=== PATIENT | female | born 1940 | race Hispanic/Latino ===

== ENCOUNTER 2016-12-24 10:31 | Inpatient (IN) | payer BC, MEDICARE ==
[2016-12-24] MEDS ORDERED: Sodium Chloride 0.9% 1,000 ML IV STA (10:49)
[2016-12-24] MEDS ORDERED: Sodium Chloride 0.9% 500 ML IV STA (11:01)
--- NOTE | 2016-12-24 11:06 | ED PDOC ---
Arrival/HPI - General Chief Complaint: High Blood Sugar Time Seen by Provider: 12/24/16 10:40 Historian: Patient, Family (Son, Daughter in Law) - History of Present Illness Narrative History of Present Illness (Text): 12/24/16 11:01 76 year old female with a past medical history that includes atrial fibrillation , gallstones, diabetes, and congestive heart failure presents to the emergency department from her PMD with elevated blood sugar. Patient reports generalized weakness and vomiting today. No loss of consciousness. Patient also reports lower extremity swelling for the past week and bloated sensation for the past three weeks. Denies abdominal pain, chest pain, shortness of breath, or other symptoms. PMD: Dr. Cisneros Time/Duration: < week Symptom Onset: Gradual Symptom Course: Unchanged Modifying Factors (Text): None Associated Symptoms (Text): None Past Medical History - Provider Review Nursing Documentation Reviewed: Yes - Infectious Disease Hx of Infectious Diseases: None - Reproductive Menopause: Yes - Cardiac Hx Atrial Fibrillation: Yes Hx Congestive Heart Failure: Yes Hx Hypertension: Yes - Neurological HX Cerebrovascular Accident: Yes - HEENT Hx HEENT Disorder: Yes (eyeglasses) - Endocrine/Metabolic Hx Diabetes Mellitus Type 2: Yes - Integumentary Other/Comment: multiple brown skin discolorations to lle +2 pitting edema tight skin, rle redness +2 pitting edema tight skin - Musculoskeletal/Rheumatological Hx Falls: No - Psychiatric Hx Psychophysiologic Disorder: No Hx Substance Use: No - Surgical History Hx Cardiac Catheterization: Yes Other/Comment: CARDIAC STENT - Anesthesia Hx Anesthesia: No Hx Anesthesia Reactions: No Hx Malignant Hyperthermia: No Family/Social History - Physician Review Nursing Documentation Reviewed: Yes Family/Social History: Unknown Family HX Smoking Status: Former Smoker Hx Alcohol Use: Yes Hx Substance Use: No Allergies/Home Meds Allergies/Adverse Reactions: Allergies Iodinated Contrast Media - Oral and [Iodinated Contrast Media - IV Dye] Allergy (Verified 12/24/16 10:37) ANAPHYLAXIS Home Medications: Home Meds Medication Instructions Recorded Confirmed Aspirin [Ecotrin] 81 mg PO DAILY 12/25/15 12/24/16 Metoprolol Succinate [Toprol XL] 100 mg PO DAILY 12/25/15 12/24/16 Simvastatin [Zocor] 40 mg PO DAILY 12/25/15 12/24/16 metFORMIN [glucOPHAGE] 500 mg PO BID 12/25/15 12/24/16 Coumadin 2.5 mg PO 12/28/15 11/30/16 K-Dur 20 mEq ER Tab 20 meq PO BID 12/28/15 11/30/16 Lasix 40 mg PO BID 12/28/15 12/24/16 Aspirin [Ecotrin] 81 mg PO DAILY 12/24/16 12/24/16 Spironolactone [Aldactone] 25 mg PO BID 12/24/16 12/24/16 Review of Systems - Review of Systems Constitutional: Other (Generalized weakness) Eyes: absent: Vision Changes ENT: absent: Hearing Changes Respiratory: absent: SOB, Cough Cardiovascular: Edema (lower extremity edema). absent: Chest Pain, Palpitations Gastrointestinal: Vomiting. absent: Abdominal Pain Genitourinary Female: absent: Dysuria, Frequency Musculoskeletal: absent: Back Pain Skin: absent: Rash Neurological: absent: Headache, Dizziness Endocrine: absent: Diaphoresis Hemo/Lymphatic: absent: Easy Bleeding Psychiatric: absent: Depression Physical Exam Vital Signs Reviewed: Yes Vital Signs Temp Pulse Resp BP Pulse Ox 12/24/16 12:06 120 H 16 119/79 94 L 12/24/16 10:32 97.6 F 80 16 118/85 97 Temperature: Afebrile Blood Pressure: Normal Pulse: Regular Respiratory Rate: Normal Appearance: Positive for: Well-Appearing, Non-Toxic, Comfortable Pain Distress: None Mental Status: Positive for: Alert and Oriented X 3 Finger Stick Blood Glucose: 430 - Systems Exam Head: Present: Atraumatic, Normocephalic Pupils: Present: PERRL Extroacular Muscles: Present: EOMI Conjunctiva: Present: Normal Mouth: Present: Moist Mucous Membranes Neck: Present: Normal Range of Motion Respiratory/Chest: Present: Clear to Auscultation, Good Air Exchange. No: Respiratory Distress, Accessory Muscle Use Cardiovascular: Present: Normal S1, S2, Irregular Rhythm (irregularly irregular) . No: Murmurs Abdomen: Present: Normal Bowel Sounds. No: Tenderness, Distention, Peritoneal Signs Back: Present: Normal Inspection Upper Extremity: Present: Normal Inspection. No: Cyanosis, Edema Lower Extremity: Present: Edema (Bilateral) Neurological: Present: GCS=15, CN II-XII Intact, Speech Normal Skin: Present: Warm, Dry, Normal Color. No: Rashes Psychiatric: Present: Alert, Oriented x 3, Normal Insight, Normal Concentration Medical Decision Making ED Course and Treatment: Impression: 76 year old female with a past medical history that includes atrial fibrillation, gallstones, diabetes, and congestive heart failure presents to the emergency department from her PMD with elevated blood sugar. No chest pain. Differential Diagnosis include but are not limited to: Plan: -- Zofran -- IV fluids -- Labs -- Reassess and disposition Prior Visits: Notes and results from previous visits were reviewed. Patient last seen in ED on 11/30/16 for nausea/vomiting and admitted for rapid atrial fibrillation. Progress Notes: 12/24/16 11:08 EKG shows atrial fibrillation at [address] elevations. Interpreted by me. 12/24/16 12:48 Labs show hyperglycemia but no gap and ph:7.3. Slow hydration ordered. Patient has clinical signs of overload as well as elevated bnp, and signs of heart failure/?R sided and therefore needs close fluid management for treatment of hyperglycemia. Will also need GI consult for further evaluation of elevated lfts, vomiting and worsening hyperglycemia. Spoke to PMD Dr. Cisneros who recommended admission under Dr. Vizcaino - Lab Interpretations Lab Results: 12/24/16 10:56 12/24/16 10:56 Lab Results 12/24/16 10:56: WBC 7.6 D, RBC 4.92, Hgb 13.5, Hct 41.3, MCV 83.9, MCH 27.4, MCHC 32.7, RDW 15.8 H, Plt Count 221, MPV 10.2, Gran % 82.5 H, Lymph % (Auto) 7.4 L, [place] % (Auto) 7.8 H, Eos % (Auto) 2.0, Baso % (Auto) 0.3, Gran # 6.26, Lymph # 0.6 L, [place] # 0.6, Eos # 0.2, Baso # 0.02, PT 14.8 H, INR 1.37 H, APTT 28.7, pO2 27 L, VBG pH 7.31 L, VBG pCO2 59.0, VBG HCO3 29.7 H, VBG Total CO2 31.5 H, VBG O2 Sat (Calc) 44.8, VBG Base Excess 2.0, VBG Potassium 4.2, Glucose 468 H*, Lactate 2.8 H, FiO2 21.0, Sodium 133.0, Potassium 4.3, Chloride 95.0 L, Carbon Dioxide 31, Anion Gap 13, BUN 27 H, Creatinine 1.4, Est GFR ( Amer ) 44, Est GFR (Non-Af Amer) 37, Random Glucose 495 H* D, Calcium 9.0, Phosphorus 3.5, Magnesium 1.9, Total Bilirubin 1.7 H, AST 34, ALT 43, Alkaline Phosphatase 186 H, Total Creatine Kinase 39, Troponin I 0.04, NT-Pro-B Natriuret Pep 7070 H, Total Protein 7.8, Albumin 3.9, Globulin 3.9, Albumin/ Globulin Ratio 1.0 L, Lipase 152, Venous Blood Potassium 4.2 - RAD Interpretation Radiology Orders: 12/24/16 10:54 CHEST PORTABLE [RAD] Stat - EKG Interpretation Interpreted by ED Physician: Yes Type: 12 lead EKG - Medication Orders Current Medication Orders: Discontinued Medications Sodium Chloride (Sodium Chloride 0.9%) 1,000 mls @ 999 mls/hr IV .Q1H1M STA Stop: 12/24/16 11:49 Sodium Chloride (Sodium Chloride 0.9%) 500 mls @ 999 mls/hr IV .Q31M STA Stop: 12/24/16 11:31 Last Admin: 12/24/16 11:08 Dose: 999 MLS/HR eMAR Start Stop Document 12/24/16 11:08 OCS (Rec: 12/24/16 11:09 OCS [id number]) Intravenous Solution Start Date 12/24/16 Start Time 11:08 End Date 12/24/16 End time 11:40 Total Infusion Time 32 Ondansetron HCl (Zofran Inj) 4 mg IVP STAT STA Stop: 12/24/16 11:09 Last Admin: 12/24/16 11:19 Dose: 4 MG IVP Administration Document 12/24/16 11:19 OCS (Rec: 12/24/16 11:20 OCS [id number]) Charges for Administration # of IVP Administrations 1 - Scribe Statement The provider has reviewed the documentation as recorded by the Angel Marr Provider Scribe Attestation: All medical record entries made by the Allisonibmathew were at my direction and personally dictated by me. I have reviewed the chart and agree that the record accurately reflects my personal performance of the history, physical exam, medical decision making, and the department course for this patient. I have also personally directed, reviewed, and agree with the discharge instructions and disposition. Disposition/Present on Arrival - Present on Arrival Any Indicators Present on Arrival: No History of DVT/PE: No History of Uncontrolled Diabetes: No Urinary Catheter: No History of Decub. Ulcer: No History Surgical Site Infection Following: None - Disposition Have Diagnosis and Disposition been Completed?: Yes Diagnosis: Congestive heart failure, Rapid atrial fibrillation, Hyperglycemia Disposition: HOSPITALIZED Disposition Time: 12:17 Patient Plan: Admission Patient Problems: Current Active Problems Problem Status Diagnosed Congestive heart failure Acute Hyperglycemia Acute Rapid atrial fibrillation Acute Condition: FAIR
[2016-12-24 11:14] LABS: ADD MANUAL DIFF? NO
[2016-12-24 11:17] LABS: BASO # 0.02 K/mm3 (0.0-2.0); BASO % 0.3 % (0.0-3.0); EOS # 0.2 (0.0-0.7); GRAN # 6.26 (1.4-6.5); GRAN % 82.5 % (50.0-68.0); HEMATOCRIT 41.3 % (36.0-48.0); LYMPH # 0.6 (1.2-3.4); LYMPH % 7.4 % (22.0-35.0); MEAN CELL VOLUME 83.9 fL (80.0-105.0); MEAN CORPUSCULAR HEMOGLOBIN 27.4 pg (25.0-35.0); MEAN CORPUSCULAR HGB CONC 32.7 g/dl (31.0-37.0); MEAN PLATELET VOLUME 10.2 fl (7.0-11.0); MONO # 0.6 (0.1-0.6); MONO % 7.8 % (1.0-6.0); PLATELET COUNT 221 10^3/uL (120.0-450.0); RED CELL DISTRIBUTION WIDTH 15.8 % (11.5-14.5); WHITE BLOOD COUNT 7.6 10^3/ul (4.5-11.0)
[2016-12-24 11:18] LABS: VENOUS BLOOD PH 7.31 (7.32-7.43)
[2016-12-24 11:27] LABS: INR 1.37 (0.93-1.08); PARTIAL THROMBOPLASTIN TIME 28.7 Seconds (23.7-30.8)
[2016-12-24 11:36] LABS: BILIRUBIN,TOTAL 1.7 mg/dL (0.2-1.3); MAGNESIUM 1.9 mg/dL (1.7-2.2); PHOSPHOROUS 3.5 mg/dL (2.5-4.5); POTASSIUM 4.3 mmol/L (3.6-5.0); TOTAL PROTEIN 7.8 g/dL (5.8-8.3)
[2016-12-24 11:48] LABS: TROPONIN I 0.04 ng/mL
[2016-12-24] MEDS ORDERED: Metoprolol Succinate 100 mg XL Tab PO STA (13:00)
--- NOTE | 2016-12-24 14:39 | RAD ---
HISTORY: hyperglycemia COMPARISON: Comparison is made to 11/30/2016 FINDINGS: LUNGS: Worsening gait left lower chest opacity likely representing combination of left pleural effusion and left lower lobe consolidation. Otherwise no significant interval change in the lungs. PLEURA: Suspicious for small to moderate left pleural effusion. Blunting of the right costophrenic angle is also noted. CARDIOVASCULAR: Likely normal in size. OSSEOUS STRUCTURES: Suspicious for osteopenia. VISUALIZED UPPER ABDOMEN: Normal. OTHER FINDINGS: None. IMPRESSION: Worsening opacity at the left lower chest likely represent a combination of left pleural effusion and left lower lobe consolidation/atelectasis. Otherwise no significant interval change.
[2016-12-24] MEDS: Metoprolol Succinate 100 mg XL Tab PO SCH (14:53)
--- NOTE | 2016-12-24 16:09 | CON ---
DATE: 12/24/2016 Seen and examined in the Emergency Room. Her family was at the bedside. The chart was reviewed. REQUEST FOR CONSULT: For vomiting and hyperglycemia. HISTORY OF PRESENT ILLNESS: This is a 76-year-old female with a history of atrial fibrillation, silverio nary artery disease with stent, diabetes mellitus type 2, who was recently discharged from the [facility] on 12/06/2016. She came to the hospital with rapid AFib and was followed by our service for eleva ga LFTs. It appeared that the patient may have had cholecystitis. She received IV antibiotics with improvement of her symptoms. She did have an MRI done. She did have an MRCP done which was negativ e for a CBD stone. There was no common bile duct or intrahepatic biliary ductal dilation, but did sh ow gallstones and mild gallbladder thickening and pericholecystic fluid. She was followed by surgery and did not require any surgical intervention. Also on MRCP, it was reported that there was finding suspicious for partial splenic infarction. She was seen by hematology; it was thought that the infa rcts were probably related to the rapid AFib after her medications were not tolerated due to nausea a nd vomiting. She also underwent a HIDA scan during that admission and it was a normal hepatobiliary scan. The cystic duct was patient. The patient was clinically improving and discharged home. The abhi baptiste returns to the Emergency Room from her PMD's office with elevated blood sugar and the patient was complaining of generalized weakness and vomiting. Also complains of lower extremity swelling for the past week. The patient does not complain of any shortness of breath, abdominal pain, chest pain . Denies any diarrhea or constipation. No reports of any overt GI bleed. PAST MEDICAL HISTORY: Atrial fibrillation, on Coumadin; coronary artery disease, status post stent; diabetes mellitus, type 2. The patient has history of colon polyps. She had a colonoscopy at [facility] in 11/2009. The polyp was an adenomatous polyp, negative for high-grade dysplasia. She has not h ad any recent colonoscopy. She also has history of pulmonary hypertension, cholelithiasis, CHF. PAST SURGICAL HISTORY: Vaginosis that was removed many years ago after giving , cardiac cathete rization, and last colonoscopy in 2009 at [facility] [place]. FAMILY HISTORY: Mother had heart disease. SOCIAL HISTORY: Denies smoking, ETOH, or substance abuse. ALLERGIES: IODINATED CONTRAST MEDIA, ORAL AND DYE. MEDICATIONS: Reviewed as per MAR. REVIEW OF SYSTEMS: Systems were reviewed with positive findings, see HPI. ASSESSMENT: This is a 76-year-old female with a past medical history of atrial fibrillation, coronar y artery disease with stents, pulmonary hypertension, cholelithiasis, who came to the Emergency Room with complaints of vomiting and hyperglycemia. The patient has history of diabetes mellitus type 2. The patient has an elevated BNP as well as lower extremity swelling, likely having congestive heart failure. She is noted to have an elevated total bilirubin and alkaline phosphatase. Rule out any ga llbladder pathology. PLAN: Continue liquid diet. We will review her previous radiology report; she had an MRCP. She is on aspirin and on Aldactone. We will continue to follow closely. Discussed with her family at the [facility]. Thank you for this consult and for allowing us to participate in your patient's care. Will make furt her recommendations based upon patient's clinical course. The patient was seen and discussed with Dr Tamie Ortega. Jemma TAPIA cc: [id number] TT: 12/24/2016 16:08:22 Confirmation # [id number] Dictation # [id number] eladio
[2016-12-24 18:18] VITALS: BMI 27.1
[2016-12-25 07:11] LABS: HEMATOCRIT 38.4 % (36.0-48.0); MEAN CELL VOLUME 83.7 fL (80.0-105.0); MEAN CORPUSCULAR HEMOGLOBIN 26.8 pg (25.0-35.0); MEAN PLATELET VOLUME 9.6 fl (7.0-11.0); RED CELL DISTRIBUTION WIDTH 15.6 % (11.5-14.5); WHITE BLOOD COUNT 5.9 10^3/ul (4.5-11.0)
[2016-12-25 07:16] LABS: BILIRUBIN,TOTAL 1.4 mg/dL (0.2-1.3); CALCIUM 8.3 mg/dL (8.4-10.5); POTASSIUM 4.5 mmol/L (3.6-5.0); TOTAL PROTEIN 6.6 g/dL (5.8-8.3)
--- NOTE | 2016-12-25 08:39 | CON ---
DATE: 12/24/2016 This patient was seen and evaluated earlier today. Discussed with the ER attending. This 76-year-ol d patient with a history of atrial fibrillation, coronary artery disease, diabetes mellitus, recently in the hospital, was admitted again. This patient was admitted with shortness of breath. The patie nt was found to have elevated liver enzymes. GI consultation was requested to evaluate. The patient denies any abdominal pain. PHYSICAL EXAMINATION: Abdomen is soft. There is no tenderness. Bilateral leg swelling present. Th e likely cause for the elevated liver enzymes could be congestion. But, we need to consider chronic liver disease. The patient did have an MRCP done during her last admission and it was negative for CBD stone. The p oliva's MRCP was negative. At the present time, the plan is to follow up the LFTs and optimize her cardiac status, ____ consider ing further endoscopic evaluation. The patient also has a history of multiple colonic polyps. She w ould also benefit from elective colonoscopic evaluation. We will continue to closely follow up her c are and suggest further management based on the clinical course. Marleen Ortega MD cc: [id number] TT: 12/25/2016 08:39:14 Confirmation # [id number] Dictation # [id number] mn
[2016-12-25] MEDS: Metoprolol Succinate 100 mg XL Tab PO SCH (09:51)
--- NOTE | 2016-12-25 09:58 | CARD ---
APPROVED REPORT EKG Measurement Heart [id number] <Conclusion> Atrial fibrillation with rapid ventricular respons PRWP STTW changes Small inferior q waves No change except faster rate.
--- NOTE | 2016-12-25 11:07 | CON ---
DATE: 12/25/2016 REASON FOR CONSULTATION: Left pleural effusion. REFERRING PHYSICIAN: Dr. Ben James The patient is a 76-year-old female with past medical history significant for atrial fibrillation, congestive heart failure, coronary artery disease, valvular heart disease, diabetes mellitus, chronic left pleural effusion (seen on multiple previous chest x-rays), who presents with main complaints of increasing shortness of breath at rest and dyspnea on exertion for the past 3 days. There is no history of cough or sputum production. There is no history of chest pain, coughing up of blood or chest pain -- made worse with deep respirations. There is no history of temperatures, chills or infectious exposure. There is no history of night sweats, weight loss or appetite change prior to the above events. No history of leg or calf pains. The patient does state that her legs have been swollen over the past week. No history of syncope or diaphoresis. No history of recent travel or trauma. REVIEW OF SYSTEMS: The patient does state to an episode of nausea and vomiting yesterday. No abdominal pain. No diarrhea. No acute urinary symptoms. No new neurologic or musculoskeletal complaints. Rest of the review of systems is negative. ALLERGIES: IV DYE. SOCIAL HISTORY: Negative for tobacco, negative for alcohol. FAMILY HISTORY: No inheritable diseases. HOME MEDICATIONS: Include Lasix, Aldactone, Ecotrin, Toprol, Glucophage, Zocor , Coumadin. PHYSICAL EXAMINATION: GENERAL: The patient appears comfortable at rest. She is not short of breath. VITAL SIGNS: Temperature is 97.2, pulse 71, respirations 19, blood pressure 132 /72. Oxygen saturation on room air is 95%. HEENT: Normocephalic, atraumatic. No JVD. CARDIOVASCULAR: Systolic ejection murmur at the lower left sternal border. Positive S3 gallop. LUNGS: Decreased breath sounds with crackles at both bases. No rhonchi. No wheezing. EXTREMITIES: Positive for edema. No cyanosis, no clubbing. Calves are nontender to palpation. GASTROINTESTINAL: Abdomen is soft, nontender, nondistended. Bowel sounds are positive. SKIN: No acute rash. NEUROLOGIC: Limited at the present time. PERTINENT LABORATORY DATA: Chest x-ray was done and reviewed. There is a small left pleural effusion noted -- possibly slightly increased from the previous films. There is also minimal linear atelectasis at the left base. Complete metabolic profile: Glucose 189, calcium 8.3, bilirubin 1.4, alkaline phosphatase 135. Rest of the metabolic profile is within normal limits. Initial B-type natriuretic peptide 7070. INR 1.37. CBC: White count 5.9, hemoglobin 12.3, hematocrit 38.4, platelets of 197. IMPRESSION: 1. Recurrent congestive heart failure. 2. Chronic atrial fibrillation. 3. Chronic small left pleural effusion. 4. Minimal atelectasis -- left base. 5. Coronary artery disease. 6. Valvular heart disease. PLAN: The patient presents to [facility] with increasing shortness of breath at rest and dyspnea on exertion for the past 3 days. The patient also states to bilateral leg swelling for the past week. She was thus admitted for additional evaluation. I did review the chest x-ray as above. There is a chronic small left pleural effusion noted -- possibly slightly increased from the previous films. This left pleural effusion has been noted on the previous abdominal/pelvic CAT scans, as well as multiple previous chest x-rays. On physical exam, there is no significant bronchospasm noted. In addition, there is no significant alveolar-arterial gradient. Oxygen saturation on room air is 95%. I would continue with the treatment for congestive heart failure. Cardiology evaluation with Dr. Kong has been ordered. I would also check a repeat chest x-ray -- in a few days -- for comparison. As above, this morning, the patient does appear quite comfortable at rest. She states she is much feeling better this morning. Additional pulmonary intervention will be based on the above results, as well as the clinical status of the patient. I will discuss the above with Dr. James. Thank you very much for this pulmonary consultation. Dev Deal MD cc: [id number] TT: 12/25/2016 11:06:36 Confirmation # [id number] Dictation # [id number] MTDD
--- NOTE | 2016-12-25 11:23 | HP ---
CHIEF COMPLAINT AND HISTORY OF PRESENT ILLNESS: This is a 76-year-old female who is coming into the hospital with high sugars. The patient has a past medical history of atrial fibrillation, gallstones , diabetes type 2, CHF. The patient had gone to see her primary care doctor. She was complaining of weakness. She had vomiting. She denies any abdominal pain, no back pain. She said she had been bl oated for the past few weeks. She has no fevers or chills, no nausea, no vomiting. She was recently discharged from the hospital about 1 month ago after she had atrial fibrillation with a rapid rate. The patient says she feels well this morning. She has no other complaints. She had elevated LFTs d uring the previous hospitalization. She did have an MRCP that was negative for common bile duct ston es. She is being followed by GI. She also had a HIDA scan that showed a normal hepatobiliary scan. REVIEW OF SYSTEMS: All other review of symptoms are within normal limits except what is mentioned. ALLERGIES: IODINATED CONTRAST MEDIA. PAST MEDICAL HISTORY: 1. Atrial fibrillation. 2. Diabetes type 2. 3. Coronary artery disease. 4. Dyslipidemia. 5. Pulmonary hypertension. 6. Moderate tricuspid regurgitation. 7. Severe pulmonary hypertension. 8. Transaminitis. FAMILY HISTORY: The mother had coronary disease and high blood pressure. SOCIAL HISTORY: She denies smoking, drinking. She lives with her son. HOME MEDICATIONS: Aspirin, Lasix, Toprol, Zocor, Glucophage, Coumadin and Lasix. PHYSICAL EXAMINATION: VITAL SIGNS: Temperature is 97.2, pulse is 71, blood pressure is 132/72, respirations 19, O2 saturat ion is 95%, height is 5 feet 3 inches, weight is 153 pounds, BMI is 27.2. GENERAL: The patient lying in bed, flat, and in no apparent distress. HEAD AND NECK EXAM: Atraumatic, normocephalic. Conjunctivae are pink. Throat clear and mouth with moist mucosa. Oropharynx benign. EYES: Extraocular movements are intact. PERRLA. NECK: Supple. No JVD, thyromegaly, or adenopathy. No bruits. HEART: S1 and S2 regular rate and rhythm. No murmurs, rubs, or gallops. LUNGS: Clear to auscultation bilaterally. No wheezing rales or rhonchi appreciated. No retraction s on exam. ABDOMEN: Soft, nontender, nondistended. Bowel sounds are positive in all quadrants. No rebound. No hepatosplenomegaly. EXTREMITIES: No cyanosis, clubbing, or edema. NEUROLOGIC: No facial asymmetry, tongue is midline, no uvula deviation. Power is 5/5 in upper extr emity and 5/5 in lower extremity. Sensation is normal in upper extremity and lower extremity. PSYCHIATRIC: Awake, alert, oriented x 3. No anxiety or depression symptoms. Good insight. Claribel l affect. GENITOURINARY: No CVA tenderness VASCULAR: 2+ pulses in carotid and pedal pulses. SKIN: No erythema or abnormal nodules noted. SPINE: Normal curvature. LYMPHADENOPATHY: No anterior cervical or posterior cervical adenopathy. No inguinal adenopathy. LABORATORIES: White count of 7.6, hemoglobin 13.5, platelet count is 221. INR is 1.37. She is subt herapeutic. ABG shows a pH of 7.31, pCO2 is 59, PaO2 is 27. Chemistry shows sodium 132. The patient's creatinine is 1.4. Glucose is 495, repeat is 189. She kuo s an albumin of 3.9. AST, ALT is 34 and 39, alkaline phosphatase of 186. Chest x-ray done shows worsening opacity of the left lower lobe, likely representing a combination of pleural effusion and left lower lobe consolidation. EKG shows atrial fibrillation with a rate of 147, QTc is 388. ASSESSMENT: 1. Vomiting. 2. Diabetes type 2, uncontrolled. 3. Hypoxia. 4. Pneumonia, left lower lobe. 5. Pulmonary hypertension. 6. Diabetes type 2. 7. Atrial fibrillation with rapid rate. 8. Coronary artery disease. PLAN: The patient is going to be admitted to the hospital. The patient is on her aspirin. She is g oing to continue with Aldactone. She is on metoprolol. She was given IV fluids and Zofran. She is on a liquid diet. I will get Dr. Ortega to evaluate the patient. The patient is going to be place d on oxygen. I will get pulmonary to evaluate the patient. She will need to continue her Coumadin a s she is subtherapeutic. She is going to need fingersticks with sliding scale. Her fingerstick this morning is 177. We will continue to follow closely. Repeat her blood work tomorrow. She will need antibiotics. She has blood cultures done. She will also need ID evaluation. Ben James MD cc: [id number] TT: 12/25/2016 11:23:13 en
[2016-12-25] MEDS: Meropenem 1 GM in Sodium Chloride 0.9% 100 ML IVPB SCH ×2 (11:48→22:54)
[2016-12-25] MEDS: Insulin Reg-MEDIUM-Coverage SC SCH ×3 (12:23→22:01)
--- NOTE | 2016-12-25 14:33 | CP.PCM.CON ---
History of Present Illness - History of Present Illness History of Present Illness: 76 year old female with PMH of CAD S/P PCI, atrial fibrillation on anticaogulation, severe pulmonary HTN, DM, chronic CHF came in to [facility] complaining of nausea associated with vomiting and generalized weakness which started about 2-3 days. She has also been having dry cough and mild shortness of breath at rest. She denies chest pain, no chest palpitations, no headache or dizziness, no fever or chills, no abdominal pain, no flank pain, no sore throat, no dysphagia, no rhinorrhea, no diarrhea, has occasional burning sensation on urination. In the ED, she was noted to have hyperglycemia, and CXR showed questionable pneumonia on the left lower lobe. Infectious Diseases consult is requested to further evaluate and manage. Review of Systems - Review of Systems All systems: reviewed and no additional remarkable complaints except (as per HPI ) Past Patient History - Infectious Disease Hx of Infectious Diseases: None - Past Social History Smoking Status: Former Smoker - CARDIAC Hx Cardiac Disorders: Yes ([place]) Hx Cardia Arrhythmia: Yes (afib) Hx Congestive Heart Failure: Yes Hx Hypercholesterolemia: Yes Hx Hypertension: Yes - NEUROLOGICAL HX Cerebrovascular Accident: Yes - HEENT Hx HEENT Problems: Yes (eyeglasses) - ENDOCRINE/METABOLIC Hx Diabetes Mellitus Type 2: Yes - INTEGUMENTARY Other/Comment: multiple brown skin discolorations to lle +2 pitting edema tight skin, rle redness +2 pitting edema tight skin - MUSCULOSKELETAL/RHEUMATOLOGICAL Hx Falls: No - PSYCHIATRIC Hx Substance Use: No - SURGICAL HISTORY Hx Cardiac Catheterization: Yes Hx Coronary Stent: Yes Other/Comment: CARDIAC STENT - ANESTHESIA Hx Anesthesia: No Hx Anesthesia Reactions: No Hx Malignant Hyperthermia: No Meds Allergies/Adverse Reactions: Allergies Allergy/AdvReac Type Severity Reaction Status Date / Time Iodinated Contrast Media - Allergy ANAPHYLAXIS Verified 12/24/16 10:37 Oral and [Iodinated Contrast Media - IV Dye] - Medications Medications: Current Medications Aspirin (Ecotrin) 81 mg PO DAILY [facility] Insulin Human Regular (Humulin R Med) 0 units SC ACHS [facility] PRN Reason: Protocol Metoprolol Succinate (Toprol Xl) 100 mg PO DAILY [facility] Last Admin: 12/24/16 14:53 Dose: Not Given Spironolactone (Aldactone) 25 mg PO BID [facility] Last Admin: 12/24/16 18:26 Dose: 25 mg Warfarin Sodium (Coumadin) 2.5 mg PO 1800 [facility] Physical Exam - Constitutional Appears: Non-toxic, No Acute Distress - Head Exam Head Exam: NORMAL INSPECTION - ENT Exam ENT Exam: Mucous Membranes Moist - Neck Exam Neck exam: Negative for: Lymphadenopathy, Meningismus - Respiratory Exam Respiratory Exam: Decreased Breath Sounds - Cardiovascular Exam Cardiovascular Exam: +S1, +S2 - GI/Abdominal Exam GI & Abdominal Exam: Soft. absent: Tenderness Results - Vital Signs Recent Vital Signs: Last Vital Signs Temp 97.2 F L 12/24/16 18:02 Pulse 71 12/25/16 06:00 Resp 19 12/25/16 06:00 BP 132/72 12/25/16 06:00 Pulse Ox 95 12/25/16 06:00 - Labs Result Diagrams: 12/25/16 06:30 12/25/16 06:30 Labs: Laboratory Results - last 24 hr 12/24/16 12/25/16 12/25/16 21:19 06:30 07:36 WBC 5.9 D RBC 4.59 Hgb 12.3 Hct 38.4 MCV 83.7 MCH 26.8 MCHC 32.0 RDW 15.6 H Plt Count 197 MPV 9.6 Sodium 136 Potassium 4.5 Chloride 96 Carbon Dioxide 33 Anion Gap 12 BUN 21 Creatinine 1.2 Est GFR ( Amer) 53 Est GFR (Non-Af Amer) 44 POC Glucose (mg/dL) 347 H 177 H Random Glucose 189 H Calcium 8.3 L Total Bilirubin 1.4 H AST 28 ALT 39 Alkaline Phosphatase 135 H Total Protein 6.6 Albumin 3.2 Globulin 3.4 Albumin/Globulin Ratio 1.0 L Assessment & Plan - Assessment and Plan (Free Text) Plan: Assessment Left lower lobe consolidation, consider secondary to CHF exacerbation R/O left lower lobe healthcare-associated pneumonia Nausea with elevated Alk phos and bilirubin, R/O biliary tract disease history of cholecystitis CAD S/P PCI with chronic CHF atrial fibrillation on anticoagulation severe pulmonary HTN DM Plan started patient on Doxycycline and Meropenem pending blood, sputum cx, PCT; reviewed CXR - will discuss with Dr. Deal Will also check UA and urine cx Follow up Ultrasound of the abdomen Will monitor clinically
--- NOTE | 2016-12-25 19:01 | US ---
HISTORY: rule out cholecystitis COMPARISON: 12/01/2016 TECHNIQUE: Sonographic evaluation of the abdomen. FINDINGS: LIVER: Measures 14.6 cm. Diffusely increased echogenicity of the liver parenchyma. Consistent with mild fatty infiltration. No mass. No biliary ductal dilatation. Hepatopetal portal venous flow demonstrated. GALLBLADDER: Cholelithiasis. No mural thickening. Negative sonographic Willett's sign. COMMON BILE DUCT: Measures 5 mm. No stones. No dilatation. PANCREAS: Unremarkable as visualized. No mass. No ductal dilatation. RIGHT KIDNEY: Measures 9.4cm. Normal echogenicity. No calculus, mass, or hydronephrosis. LEFT KIDNEY: Measures 10.5cm. Normal echogenicity. No calculus, mass, or hydronephrosis. SPLEEN: Normal in size and contour. No mass. AORTA: No aneurysmal dilatation. IVC: Unremarkable. OTHER FINDINGS: Bilateral pleural effusion IMPRESSION: No evidence of cholecystitis. Cholelithiasis is noted. Mild fatty infiltration of the liver. Bilateral pleural effusion.
[2016-12-25 21:56] LABS: PH,URINE 6.5 (4.7-8.0); URINE BILIRUBIN NEGATIVE (NEGATIVE); URINE BLOOD NEGATIVE (NEGATIVE); URINE GLUCOSE (UA) 250 mg/dL (NEGATIVE); URINE KETONE NEGATIVE (NEGATIVE); URINE LEUKOCYTE ESTERASE NEGATIVE Leu/uL (NEGATIVE); URINE PROTEIN TRACE mg/dL (<30 mg/dL)
[2016-12-25 21:58] LABS: URINE APPEARANCE CLEAR (CLEAR); URINE COLOR YELLOW (YELLOW)
[2016-12-25 22:00] LABS: URINE RBC 0 - 2 /hpf (0-2); URINE WBC 0 - 2 /hpf (0-6)
--- NOTE | 2016-12-26 00:19 | CP.PCM.PN ---
Subjective - Date & Time of Evaluation Date of Evaluation: 12/25/16 Time of Evaluation: 11:00 - Subjective Subjective: Seen and examined at bedside earlier today. No N/V or abdominal pain. Generalized weakness and SOB are improving. NO acute overnight events. Objective - Vital Signs/Intake and Output Vital Signs (last 24 hours): Temp Pulse Resp BP Pulse Ox 97.6 F 102 H 20 135/85 95 12/25/16 12:00 12/25/16 12:00 12/25/16 12:00 12/25/16 12:00 12/25/16 06:00 Intake and Output: 12/25/16 12/25/16 06:59 18:59 Intake Total 720 Balance 720 - Medications Medications: Current Medications Aspirin (Ecotrin) 81 mg PO DAILY [facility] Last Admin: 12/25/16 09:51 Dose: 81 mg Doxycycline Hyclate 100 mg/ (Sodium Chloride) 100 mls @ 100 mls/hr IVPB Q12 [facility] PRN Reason: Protocol Last Admin: 12/25/16 10:44 Dose: 100 mls/hr Meropenem 1 gm/ Sodium (Chloride) 100 mls @ 100 mls/hr IVPB Q12 [facility] PRN Reason: Protocol Stop: 01/01/17 10:01 Last Admin: 12/25/16 11:48 Dose: 100 mls/hr Insulin Human Regular (Humulin R Med) 0 units SC ACHS [facility] PRN Reason: Protocol Last Admin: 12/25/16 12:23 Dose: 5 units Metoprolol Succinate (Toprol Xl) 100 mg PO DAILY [facility] Last Admin: 12/25/16 09:51 Dose: 100 mg Spironolactone (Aldactone) 25 mg PO BID [facility] Last Admin: 12/25/16 09:51 Dose: 25 mg Warfarin Sodium (Coumadin) 2.5 mg PO 1800 [facility] - Labs Labs: 12/25/16 06:30 12/25/16 06:30 PT 14.8 Seconds (9.9-11.8) H 12/24/16 10:56 INR 1.37 (0.93-1.08) H 12/24/16 10:56 APTT 28.7 Seconds (23.7-30.8) 12/24/16 10:56 - Constitutional Appears: No Acute Distress - Eye Exam Eye Exam: PERRL. absent: Scleral icterus - ENT Exam ENT Exam: Mucous Membranes Moist - Neck Exam Neck Exam: Normal Inspection - Respiratory Exam Respiratory Exam: Decreased Breath Sounds, NORMAL BREATHING PATTERN. absent: Rales, Wheezes, Respiratory Distress - Cardiovascular Exam Cardiovascular Exam: +S1, +S2 - GI/Abdominal Exam GI & Abdominal Exam: Soft, Normal Bowel Sounds. absent: Distended, Guarding, Tenderness, Rebound - Extremities Exam Extremities Exam: Pedal Edema. absent: Calf Tenderness - Neurological Exam Neurological Exam: Alert, Awake, Oriented x3 - Skin Skin Exam: Dry, Warm Assessment and Plan - Assessment and Plan (Free Text) Assessment: ASSESSMENT: Atrial Fibrillation S/P N/V CAD, s/p stents Pneumonia Pulmonary Hypertension Cholelithiasis DM type II CHF Elevated TB/alkaline phosphatase, LFT improving, may be secondary to congestion , gallstone but prior workup is negative. H/O colon polyps PLAN: Continue liquid diet on aspirin on Aldactone on IV antibiotics as per ID monitor LFT as per cardiology would benefit from elective colonoscopy when optimal,last coon was 2009. Seen and discussed with Dr. Ortega.
[2016-12-26] MEDS ORDERED: Metoprolol 1 mg/ml Inj IVP ONE (02:17)
--- NOTE | 2016-12-26 03:21 | PN ---
DATE: 12/25/2016 ADDENDUM: This is an addendum to the GI progress report dictated by Jemma Ricks NP. On examination, abdomen is soft. There is no tenderness present. The review of the lab showed improving LFTs. The likely cause for elevated LFTs should include hepatic congestion. LFTs showing improving trend. previous hepatobilliary workup reviewed again. We will continue to closely followup. Thank you very much for allowing us to participate in the care of the patient. Marleen Ortega MD cc: [id number] TT: 12/26/2016 03:20:48 Confirmation # [id number] Dictation # [id number] [facility]
[2016-12-26 08:04] LABS: HEMATOCRIT 40.9 % (36.0-48.0); MEAN CELL VOLUME 83.8 fL (80.0-105.0); MEAN CORPUSCULAR HEMOGLOBIN 27.3 pg (25.0-35.0); MEAN CORPUSCULAR HGB CONC 32.5 g/dl (31.0-37.0); MEAN PLATELET VOLUME 9.7 fl (7.0-11.0); RED CELL DISTRIBUTION WIDTH 15.8 % (11.5-14.5); WHITE BLOOD COUNT 6.5 10^3/ul (4.5-11.0)
[2016-12-26 08:15] LABS: INR 1.59 (0.93-1.08)
[2016-12-26 08:20] LABS: ALB/GLOB RATIO 0.9 (1.1-1.8); BILIRUBIN,TOTAL 1.7 mg/dL (0.2-1.3); CALCIUM 8.9 mg/dL (8.4-10.5); POTASSIUM 4.8 mmol/L (3.6-5.0); TOTAL PROTEIN 7.4 g/dL (5.8-8.3)
[2016-12-26] MEDS: Insulin Reg-MEDIUM-Coverage SC SCH ×4 (08:46→22:08)
[2016-12-26] MEDS: Metoprolol Succinate 100 mg XL Tab PO SCH (10:00)
[2016-12-26] MEDS: Meropenem 1 GM in Sodium Chloride 0.9% 100 ML IVPB SCH ×2 (10:01→21:31)
--- NOTE | 2016-12-26 10:39 | PN ---
DATE: 12/26/2016 The patient is in bed, in no acute distress, nontoxic. PHYSICAL EXAMINATION: VITAL SIGNS: Temperature is 98. Blood pressure is 120/60, respiratory rate of 18. HEENT: Unremarkable. NECK: Supple. LUNGS: Have decreased breath sounds. HEART: Normal S1, S2. ABDOMEN: Soft, nontender. LABORATORY EXAMINATION: Reveals a white count of 6.5, hemoglobin of 13, platelets of 213. Chemistri es are noted. Chemistries reveal the BUN of 18, creatinine of 1.1. The patient does have a total bi li of 1.7. Procalcitonin is 0.07. Alk phos of 145. Urinalysis is noted. Microbiology reveals the blood cultures are negative. Review of the orders reveals the patient to be on doxycycline and meropenem. Dr. Ortega's note fro m this morning is reviewed, and the patient's LFTs are noted. ASSESSMENT AND PLAN: A 76-year-old female with coronary artery disease, percutaneous coronary interv ention, atrial fibrillation on anticoagulation, severe pulmonary hypertension, diabetes, chronic cj estive heart failure, admitted with nausea, vomiting, and left lower lobe consolidation, congestive h eart failure, with possible left lower lobe healthcare-associated pneumonia. The patient had an ultrasound of the abdomen that shows cholelithiasis. No mural thickening. Negati ve Willett's sign, and no biliary dilatation. The patient did not have any fevers, did have tachycardia. We will discontinue the doxycycline. The patient is a normal procalcitonin. Dr. Deal's consultat ion is reviewed. The patient's EKG reveals a QTC of 388. We will follow closely with you. Denver Scott MD cc: [id number] TT: 12/26/2016 10:39:02 Confirmation # [id number] Dictation # [id number] laura
--- NOTE | 2016-12-26 12:33 | PN ---
DATE: 12/26/2016 SUBJECTIVE: This is a short progress noted regarding the status of the patient. I have reviewed Dr. Deal's consultation of yesterday. The patient continues to feel well, with no signs of shortness of breath. There are no additional changes to her respiratory status. She is comfortable in bed an d offers no complaints. OBJECTIVE: VITAL SIGNS: Stable. She is afebrile with a heart rate of 70, respiratory rate is 16, blood pressur e 130/70, O2 sat on room air 96%. LUNGS: Essentially clear without rales, rhonchi, or wheezes. EXTREMITIES: No clubbing, cyanosis, or edema. NEUROLOGIC: No additional changes noted when compared to Dr. Deal's consultation yesterday. LABORATORY DATA: Chest x-ray showed small pleural effusion with possible increase from older films. Follow up x-ray has been planned by Dr. Deal, to rule out progression atelectasis at the left bas e. IMPRESSION: 1. Recurrent congestive heart failure. 2. Chronic atrial fibrillation. 3. Minimal atelectasis at the left base. 4. Small left pleural effusion. Perhaps larger? Need to follow up with x-ray planned by Dr. Deal , early next week. 5. Coronary artery and valvular heart disease. PLAN: Follow up x-ray as per Dr. Deal. The patient remains comfortable, with no significant pulm onary examination findings. The x-ray will be reviewed when completed and compared to previous films . Further intervention will be decided by Dr. Deal early in the week. Thank you. If there are any problems that need further attention, please feel free to call me. Erick De Leon MD cc: [id number] TT: 12/26/2016 12:32:45 Confirmation # [id number] Dictation # [id number] ln
--- NOTE | 2016-12-26 18:53 | PN ---
DATE: 12/26/2016 This patient was seen and evaluated earlier. Feels much better; wants to go home. On examination, temperature is 97.3, pulse 118, blood pressure between 129/93. HENT: Atraumatic. Anicteric. NECK: Supple. HEART: S1, S2 heard. LUNGS: Decreased breath sounds in the base. ABDOMEN: Soft. There is no tenderness present. EXTREMITIES: Bilateral pitting pedal edema present. LABORATORY DATA: Hemoglobin 13, WBC is 6.5, platelets 213, BUN 18, creatinine 1.1. The patient has been on IV antibiotics, on doxycycline and meropenem for possible community-acquired pneumonia. The patient has a history of gallstones. She had for elevated LFT in the previous workup, including MRCP was negative. Overall the LFTs has been showing a downward trend now, and there is a slight increase compared to yesterday . The patient is also on antibiotics. The combination of the hepatic congestion and the medication could be the cause for this evaluation of the LFTs. Will continue to closely follow up the patient. The patient also has history of colonic polyps. The patient would benefit from the elective endoscopic evaluation. This discussed with the patient at length. Thank you very much for allowing us to participate in the base. Marleen Ortega MD cc: [id number] TT: 12/26/2016 18:53:07 Confirmation # [id number] Dictation # [id number] laura NELSON
[2016-12-27] MEDS: Insulin Reg-MEDIUM-Coverage SC SCH ×4 (08:13→22:03)
[2016-12-27] MEDS: Metoprolol Succinate 100 mg XL Tab PO SCH (08:59)
[2016-12-27] MEDS: Meropenem 1 GM in Sodium Chloride 0.9% 100 ML IVPB SCH (09:01)
--- NOTE | 2016-12-27 12:32 | PN ---
DATE: 12/27/2016 SUBJECTIVE: The patient is in bed. Was seen earlier this morning. She is doing well. She was seen in 269, bed 1. No fevers and chills. She had an uneventful night. PHYSICAL EXAMINATION: VITAL SIGNS: Temperature is 98, blood pressure is 123/88, respiratory rate of 20, heart rate of 115. HEENT: Unremarkable. NECK: Supple. LUNGS: Have decreased breath sounds. HEART: Normal S1, S2. ABDOMEN: Soft, nontender. LABORATORY DATA: Reveals a white count of 6.5, hemoglobin of 13, platelets of 213. The chemistries reveal the BUN of 18, creatinine of 1.8. Urinalysis is noted and abdominal ultrasound is noted. Dr. Ortega's progress note from yesterday is reviewed, and Dr. De Leon's note is reviewed. ASSESSMENT AND PLAN: A 76-year-old female with coronary artery disease, percutaneous coronary interv ention, atrial fibrillation on anticoagulation, severe pulmonary hypertension, diabetes mellitus, chr onic congestive heart failure, admitted with nausea, vomiting and left lower lobe consolidation, cj estive heart failure and possible left lower lobe healthcare-associated pneumonia. Ultrasound of the abdomen is noted. The patient's procalcitonin is noted. Currently, now patient is on meropenem day #3 with negative urine cultures, negative blood cultures. LFTs are mildly elevated at 41 and 32, T and ALT respectively with mild elevation of alkaline phosphatase, which also is improving. We will discontinue the meropenem when the patient's procalcitonin is 0.07. Denver Scott MD cc: [id number] TT: 12/27/2016 12:31:42 Confirmation # [id number] Dictation # [id number] mn
--- NOTE | 2016-12-27 18:23 | PN ---
DATE: 12/27/2016 SUBJECTIVE: She is comfortable in bed, no acute distress. Blood sugars are still high. Last blood sugar was 265. She has diabetes mellitus, currently on insulin by sliding scale. She had left lower lobe pneumonia, resolving. No fevers. IV antibiotic meropenem discontinued today. Abdominal ultrasound done on 12/25 did not reveal cholecystitis. GI, Dr. Ortega, following. She is on anticoagulation for atrial fibrillation, HR controlled. INR is subtherapeutic at 1.5. No nausea, no vomiting, no abdominal pain, no fever, no cough with expectoration. REVIEW OF SYSTEMS: As per HPI. Rest of 12-point reviewed and negative. MEDICATIONS: Aspirin 81 mg daily, insulin as per sliding scale, metoprolol 100 mg daily, Aldactone 25 mg p.o. b.i.d., Coumadin 2.5 mg daily. PHYSICAL EXAMINATION: VITAL SIGNS: Temperature 98.2, heart rate 130 per minute, blood pressure 123/88 , oxygen saturation 95% room air, respiratory rate 20 per minute. HEENT: Normal. NECK: No lymphadenopathy. CARDIOVASCULAR: S1, S2 irregular. No murmur, no gallop. RESPIRATORY: Air entry present, equal bilateral. No added sounds. ABDOMEN: Soft, nontender, no hepatosplenomegaly. EXTREMITIES: No edema. CENTRAL NERVOUS SYSTEM: Alert, oriented x 3. No sensorimotor deficit. SKIN: No petechia, no rash. LYMPHADENOPATHY: None. GAIT: Normal. LABORATORIES: PT 17.2, INR 1.5. Sodium 135, potassium 4.8, creatinine 1.1, glucose 128, total bilirubin 1.7, alkaline phosphatase 145. White count 6.5, hemoglobin 13.3, plt- 213. ASSESSMENT: 1. Left lower lobe pneumonia. 2. Atrial fibrillation, rapid heart rate. 3. Anticoagulation management. 4. Coronary artery disease. 5. Diabetes mellitus type 2. 6. Abdominal pain. 7. Hyperbilirubinemia. PLAN: Completed a course of IV antibiotic, discontinued by ID, Dr. Scott. We will continue aspirin 81 mg daily. Continue metoprolol 100 mg daily, Aldactone 25 mg p.o. b.i.d. INR is subtherapeutic. We will increase the Coumadin to 5 mg daily. No evidence of cholecystitis. Blood sugars are better. Hyperbilirubinemia, bilirubin elevated to 1.7. Hemoglobin and hematocrit stable, unlikely hemolysis. Discussed with the staff nurse. Nancy Chow MD cc: [id number] TT: 12/27/2016 18:22:40 Confirmation # [id number] Dictation # [id number] en MTDD
[2016-12-28 06:17] VITALS: O2SAT 97
--- NOTE | 2016-12-28 07:56 | PN ---
DATE: 12/27/2016 SUBJECTIVE: This patient was seen and evaluated earlier. Denies any abdominal pain. Tolerating the diet. PHYSICAL EXAMINATION: VITAL SIGNS: Remains afebrile. Blood pressure 123/88. HEENT: Atraumatic, anicteric. NECK: Supple. HEART: S1, S2 heard. LUNGS: Slightly reduced air entry at bases. ABDOMEN: Soft. There is no tenderness. EXTREMITIES: Edema present. LABORATORY DATA: Hemoglobin 13.3, hematocrit 40.9, WBC is 6.5, platelets 213. Total bilirubin 1.7 y esterday, but LFTs are slightly showing downward trend. No repeat labs were done today, were ordered for tomorrow. IMPRESSION: This is a 76-year-old patient admitted with decompensated congestive heart failure, poss ible pneumonia. Has been on antibiotics. History of elevated LFTs, now showing a downward trend. T he likely cause of her elevated LFTs is probably drug induced with congestion. Will repeat the labs. The patient had an MRCP done during recent previous admission which was negative. Marleen Ortega MD cc: [phone] TT: 12/28/2016 07:56:25 Confirmation # [id number] Dictation # [id number] eladio
[2016-12-28 08:11] LABS: ALB/GLOB RATIO 0.9 (1.1-1.8); BILIRUBIN,TOTAL 1.5 mg/dL (0.2-1.3); CALCIUM 8.8 mg/dL (8.4-10.5); POTASSIUM 4.4 mmol/L (3.6-5.0); TOTAL PROTEIN 6.4 g/dL (5.8-8.3)
[2016-12-28] MEDS: Insulin Reg-MEDIUM-Coverage SC SCH ×2 (08:51→12:00)
--- NOTE | 2016-12-28 08:51 | PN ---
DATE: 12/26/2016 HISTORY OF PRESENT ILLNESS: The patient is a 76-year-old female admitted to the hospital with abdominal pain and nausea. She was found to have left lower lobe pneumonia. She is on anticoagulation for atrial fibrillation. INR was subtherapeutic. She was on 2.5 mg of Coumadin. She also had high sugars. She has atrial fibrillation with rapid heart rate. She received IV antibiotic with meropenem. ID consultation, GI consultation reviewed. She is also followed by cardiology. She had HIDA scan, which was normal. She is currently comfortable , no abdominal pain, no nausea, no vomiting. Blood sugars are controlled with current medications. No shortness of breath. REVIEW OF SYSTEMS: As per HPI. Rest of 12-point reviewed and negative. ALLERGIES: IODINE CONTRAST. PAST MEDICAL HISTORY: Atrial fibrillation, diabetes mellitus, asthma, coronary artery disease, dyslipidemia, pulmonary hypertension, tricuspid regurgitation, . FAMILY HISTORY: Mother had coronary artery disease, none in father. PERSONAL HISTORY: No history of smoking or alcohol abuse. SOCIAL HISTORY: Lives at home with her son. CURRENT MEDICATIONS: Aspirin 81 mg daily, insulin as per sliding scale, Toprol- XL 100 mg daily, Aldactone 25 mg p.o. b.i.d., Coumadin 2.5 mg daily. LABORATORIES: White count 6.5, hemoglobin 13.3, hematocrit 40.9, platelet count 213. INR 1.3. Sodium 135, potassium 4.8, creatinine 1.1, glucose 128, total bilirubin 1.7. PHYSICAL EXAMINATION: GENERAL: Comfortable in bed, no acute distress. VITAL SIGNS: Temperature 98.2, heart rate 115, blood pressure 120 /88. PHYSICAL EXAMINATION: VITAL SIGNS: Temperature 98.2, heart rate is 115 per minute, blood pressure 120 /88, respiratory rate 20 per minute, oxygen saturation 95% room air. HEENT: Normal. NECK: No lymphadenopathy. CARDIAC: S1, S2 irregularly irregular. No murmur, no gallop. CHEST: Air entry present, equal bilateral. No added sounds. ABDOMEN: Soft, nontender, no hepatosplenomegaly. EXTREMITIES: No edema. SKIN: Warm, moist. No petechia, no rash. CENTRAL NERVOUS SYSTEM: Alert, oriented x 3, no focal sensorimotor deficit. Gait normal. ASSESSMENT: 1. Hyperglycemia. 2. Abdominal pain, resolved. 3. Diabetes mellitus type 2. 4. Left lower lobe pneumonia. 5. A-Fib, on coumadin LLL pneumonia. Meropenem was discontinued today. Blood sugars are still elevated, last 265 with insulin sliding scale. Heart rate is controlled with metoprolol 100 daily. She is also on Aldactone 25 mg b.i.d. INR was subtherapeutic on admission. We will repeat the PT/INR. We will continue Coumadin at 2.5 mg daily. Coronary artery disease, no issues. Abdominal ultrasound, no evidence of cholecystitis, mild fatty infiltration of liver. Entire records on [facility] reviewed. Discussed with the staff nurse. Discussed with the patient. Nancy Chow MD cc: [id number] TT: 12/27/2016 18:27:23 Confirmation # [id number] Dictation # [id number] en 12/28/2016 07:50:21 OMAR
--- NOTE | 2016-12-28 09:26 | PN ---
DATE: 12/28/2016 SUBJECTIVE: The patient appears comfortable this morning. She is not short of breath at rest. OBJECTIVE: VITAL SIGNS: Temperature is 97.6, pulse 100, respirations 18/20, blood pressure 162/92. Oxygen saturation on room air is 97%. HEENT: Normocephalic, atraumatic. No JVD. CARDIOVASCULAR: Systolic ejection murmur at the lower left sternal border. Positive S3 gallop. LUNGS: Decreased breath sounds with crackles at the bases. No rhonchi. No wheezing. EXTREMITIES: Less edema. No cyanosis, no clubbing. Calves are nontender to palpation. GASTROINTESTINAL: Abdomen is soft, nontender, nondistended. Bowel sounds are positive. SKIN: No acute rash. NEUROLOGIC: Limited at the present time. IMPRESSION: 1. Recurrent congestive heart failure. 2. Chronic atrial fibrillation. 3. Chronic small left pleural effusion. 4. Minimal atelectasis - left base. 5. Coronary artery disease. 6. Valvular heart disease. PLAN: The patient appears comfortable this morning. She is not short of breath at rest. She states she is feeling better overall. Oxygen saturation on room air is now 97%. On physical exam, no significant bronchospasm is noted. In addition, there is no significant alveolar arterial gradient. Infectious disease and GI inputs are noted. The clinical status of the patient is improved - compared to the initial presentation. I will check a repeat chest x-ray - for comparison. I will discuss the above with the attending physician. Dev Deal MD cc: [id number] TT: 12/28/2016 09:25:40 Confirmation # [id number] Dictation # [id number] eladio NELSON
--- NOTE | 2016-12-28 11:24 | CON ---
DATE: 12/28/2016 This is a 76-year-old woman admitted on the with complaints of weakness, vomiting, elevated blood sugars with atrial fibrillation, admitted to telemetry. While on telemetry, she has had atrial fibrillation with rapid ventricular responses. Her respiratory status has improved. She has been seen by pulmonary. This morning, she has no chest pain or shortness of breath. She denies orthopnea, PND, syncope, presyncope, lightheadedness, dizziness, vertigo , palpitations, edema, fever, chills, hemoptysis, abdominal pain, nausea, vomiting, diarrhea, constipation, melena. PAST MEDICAL HISTORY: Complex. She has known chronic atrial fibrillation on warfarin therapy. She has coronary artery disease with remote myocardial infarction and coronary intervention. There is a history of congestive heart failure, diabetes, hyperlipidemia, gallstones. She has a chronic left pleural effusion. An echocardiogram last year demonstrated normal LV function. There is moderate mitral regurgitation, mild functional mitral stenosis, moderately severe tricuspid regurgitation and severe pulmonary hypertension. There is no history of stroke, TIA or gout. MEDICATIONS: At the time of admission included Coumadin, Lasix b.i.d., potassium chloride, spironolactone, aspirin, metoprolol 100 mg daily, simvastatin and metformin. CURRENT MEDICATIONS: Include spironolactone, warfarin, aspirin, insulin, metoprolol, and metformin. ALLERGIES: SHE NOTES ALLERGIES TO IODINATED CONTRAST. SHE DID NOT TOLERATE WILBER INHIBITORS IN THE PAST. SOCIAL HISTORY: She lives at home. She does not smoke. She does not drink significantly. FAMILY HISTORY: Positive for heart disease. REVIEW OF SYSTEMS: A 10-point is otherwise unremarkable except as noted above. PHYSICAL EXAMINATION: GENERAL: She is a well-developed, elderly woman, lying in bed, on telemetry, in no acute distress. VITAL SIGNS: She is in atrial fibrillation with recent rates in the 95-116 range, sometimes even faster. She is afebrile. Blood pressure 162/92, respirations 20, O2 sat 97% on room air. HEENT: Reveals no neck vein distention, thyromegaly, or carotid bruits. Mucous membranes moist. Conjunctivae pink. NECK: Supple. LUNG LEVIN: A few scattered rhonchi. HEART: Revealed an irregular rhythm with normal first and second heart sounds. There is a systolic murmur along the left and right sternal border. ABDOMEN: Soft, bowel sounds are present. No mass, organomegaly, tenderness, rebound, or guarding. No CVA tenderness. No palpable abdominal aortic aneurysm. EXTREMITIES: Revealed no cyanosis, clubbing, or edema. NEUROLOGIC: She is awake, alert and oriented. SKIN: Warm and dry. No rash or cellulitis. PSYCHIATRIC: Normal as to mood and affect. LABORATORY AND IMAGING: A portable chest x-ray on the revealed worsening opacity of the left lower chest, likely a combination of left pleural effusion and left lower lobe consolidation, atelectasis. EKG demonstrated atrial fibrillation with rapid ventricular response, ST-T wave changes, small inferior Q-waves. An abdominal ultrasound demonstrated no evidence of cholecystitis, gallstones are noted, mild fatty infiltration of liver, bilateral pleural effusions. CBC is unremarkable. PT 17.2, INR 1.59 on the . Blood gas is noted. Electrolytes, BUN, creatinine, blood sugar noted. Troponin was 0.04. Elevated blood sugars are noted. BNP was 7070. Procalcitonin is 0.07. Today' s electrolytes, BUN and creatinine are normal. Bilirubin 1.5. IMPRESSION: The patient is a 76-year-old woman admitted with elevated blood sugars, vomiting, dyspnea, weakness with chronic atrial fibrillation, on warfarin, a history of coronary artery disease, remote myocardial infarction and coronary intervention, and a history of congestive heart failure, diabetes, hyperlipidemia, gallstones with a chronic left pleural effusion. At this time, she continues to have atrial fibrillation with rates that are sometimes rapid. I will increase her metoprolol to 75 b.i.d. I will update her echocardiogram. I will check a PT/INR. We will monitor I's and O's, check stool for occult blood. She can be out of bed to a chair. A followup chest x- ray is ordered to further evaluate her chronic left pleural effusion. She is having a pulmonary evaluation by Dr. Deal. She is being followed by GI and ID as well. I will follow along with you and make additional recommendations based on her clinical course. Alhaji Kong MD cc: [phone] TT: 12/28/2016 11:24:11 Confirmation # [id number] Dictation # [id number] en MTDD
[2016-12-28 11:48] LABS: INR 3.01 (0.93-1.08)
[2016-12-28 11:52] VITALS: BP 130/57; PULSE 54; RESP 18; TEMP 97.4
--- NOTE | 2016-12-28 14:46 | DS ---
This is a 76-year-old female who had come into the hospital because of uncontrolled diabetes. She kuo s ____. The patient had a chest x-ray done that showed opacity in the left lower chest. The patient was started on IV antibiotics. She had improvement of her symptoms. She was seen by Dr. De Leon from pulmonary. PHYSICAL EXAMINATION: VITAL SIGNS: Temperature is 97.6, pulse is 100, blood pressure is 162/____, respirations 20, O2 sat uration 97%. GENERAL: The patient comfortable, in no acute distress. HEENT: Anicteric sclerae. Moist mucosa. NECK: No JVD or adenopathy. CARDIAC: S1/S2. No murmurs. No rubs. Regular. RESPIRATORY: Clear to auscultation bilaterally. No wheezes, rales, or rhonchi. Good air entry. ABDOMEN: Bowel sounds are positive, soft, nontender, and nondistended. EXTREMITIES: No edema. Has 1+ pulses. ASSESSMENT: 1. Diabetes type 2. 2. Pneumonia ____. 3. Pulmonary hypertension. 4. Hypoxia, improved. 5. Atrial fibrillation with rapid rate, improved. 6. Coronary artery disease. PLAN: The patient is currently on Aldactone. She is also getting Coumadin. Her INR has been subth erapeutic. Coumadin has been increased by Dr. Chow. She is on aspirin. She is on metoprolol. Blo od cultures and urine cultures have been negative as well. Her antibiotics have been discontinued. She is going to be seen by physical therapy. Her diet will be advanced to a regular diet. CONDITION: Stable. ACTIVITIES: Increase as tolerated. FOLLOWUP: Primary care doctor in 1-2 weeks. Ben James MD cc: [id number] TT: 12/28/2016 14:45:00 steve
--- NOTE | 2016-12-28 15:30 | CP.PCM.PN ---
Subjective - Date & Time of Evaluation Date of Evaluation: 12/28/16 Time of Evaluation: 10:05 - Subjective Subjective: Comfortable in bed, no SOB, no fevers, not in distress. Objective - Vital Signs/Intake and Output Vital Signs (last 24 hours): Temp Pulse Resp BP Pulse Ox 97.6 F 100 H 20 162/92 H 97 12/28/16 06:00 12/28/16 06:00 12/28/16 06:00 12/28/16 06:00 12/28/16 06:00 Intake and Output: 12/28/16 12/28/16 06:59 18:59 Intake Total 240 Output Total 1000 Balance -760 - Medications Medications: Current Medications Aspirin (Ecotrin) 81 mg PO DAILY [facility] Last Admin: 12/27/16 08:59 Dose: 81 mg Insulin Human Regular (Humulin R Med) 0 units SC ACHS [facility] PRN Reason: Protocol Last Admin: 12/27/16 22:03 Dose: Not Given Metformin HCl (Glucophage) 500 mg PO BID [facility] Metoprolol Succinate (Toprol Xl) 100 mg PO DAILY [facility] Last Admin: 12/27/16 08:59 Dose: 100 mg Spironolactone (Aldactone) 25 mg PO BID [facility] Last Admin: 12/27/16 17:45 Dose: 25 mg Warfarin Sodium (Coumadin) 5 mg PO 1800 [facility] PRN Reason: Protocol Last Admin: 12/27/16 17:46 Dose: 5 mg - Labs Labs: 12/26/16 07:58 12/26/16 07:58 PT 17.2 Seconds (9.9-11.8) H 12/26/16 07:58 INR 1.59 (0.93-1.08) H 12/26/16 07:58 APTT 28.7 Seconds (23.7-30.8) 12/24/16 10:56 - Constitutional Appears: Non-toxic, No Acute Distress - Head Exam Head Exam: NORMAL INSPECTION - Neck Exam Neck Exam: absent: Lymphadenopathy, Meningismus - Respiratory Exam Respiratory Exam: Decreased Breath Sounds - Cardiovascular Exam Cardiovascular Exam: +S1, +S2 - GI/Abdominal Exam GI & Abdominal Exam: Soft. absent: Tenderness Assessment and Plan - Assessment and Plan (Free Text) Plan: Assessment Left lower lobe consolidation, consider secondary to CHF exacerbation Nausea with elevated Alk phos and bilirubin, R/O biliary tract disease history of cholecystitis CAD S/P PCI with chronic CHF atrial fibrillation on anticoagulation severe pulmonary HTN DM Plan Will continue to monitor off antibiotics since the patient is at risk for nosocomial infections
--- NOTE | 2016-12-28 20:36 | PN ---
DATE: 12/28/2016 SUBJECTIVE: This patient was seen and evaluated today. The patient is tolerating the diet. No comp laints of any abdominal pain. PHYSICAL EXAMINATION: VITAL SIGNS: Temperature 97.4, blood pressure 130/57, pulse is 54, respirations 18. HEENT: Atraumatic, anicteric. NECK: Supple. HEART: S1, S2 heard. LUNGS: Bilateral air entry present. ABDOMEN: Soft. There is no tenderness. EXTREMITIES: Bilateral edema present. LABORATORY DATA: LFTs showing downward trend, significant improvement. IMPRESSION AND PLAN: The elevated LFTs are probably secondary to hepatic condition, is improved with the treatment. Discussed with the patient at length, explained about the importance of the followup . She would benefit from outpatient GI followup. The patient fully understood the importance. Plan to schedule to be discharged today. Thank you very much for allowing us to participate in the care of the patient. Marleen Ortega MD cc: [phone] TT: 12/28/2016 20:36:08 Confirmation # [id number] Dictation # [id number] steve
== END 2016-12-28 18:03 | disposition home or self-care (01) | DRG 637 ==
LOC: ED 10:31 → ERH 12:18 → 2RNO 14:07
PROVIDERS: ADMIT Internal Medicine Nephrology; ATTEND Internal Medicine Nephrology
DX: E11.65 Type 2 diabetes mellitus with hyperglycemia (principal); J18.9 Pneumonia, unspecified organism; I27.2 Other secondary pulmonary hypertension; I50.9 Heart failure, unspecified; I48.2 Chronic atrial fibrillation; K76.1 Chronic passive congestion of liver; J98.11 Atelectasis; I25.10 Atherosclerotic heart disease of native coronary artery without angina pectoris; E78.5 Hyperlipidemia, unspecified; I08.1 Rheumatic disorders of both mitral and tricuspid valves; K80.20 Calculus of gallbladder without cholecystitis without obstruction; R09.02 Hypoxemia; Y95 Nosocomial condition; Z79.01 Long term (current) use of anticoagulants; Z95.5 Presence of coronary angioplasty implant and graft; Z86.010 Personal history of colon polyps; Z79.82 Long term (current) use of aspirin; Z79.84 Long term (current) use of oral hypoglycemic drugs; Z87.891 Personal history of nicotine dependence; I25.2 Old myocardial infarction

== ENCOUNTER 2017-02-15 10:01 | Inpatient (IN) | payer BC, MEDICARE ==
[2017-02-15 10:07] VITALS: BMI 24.7
[2017-02-15 10:40] LABS: ADD MANUAL DIFF? NO
[2017-02-15 10:52] LABS: ALB/GLOB RATIO 0.9 (1.1-1.8); BILIRUBIN,TOTAL 1.3 mg/dL (0.2-1.3); CALCIUM 9.2 mg/dL (8.4-10.5); POTASSIUM 4.6 mmol/L (3.6-5.0); TOTAL PROTEIN 8.2 g/dL (5.8-8.3)
[2017-02-15 11:03] LABS: TROPONIN I 0.02 ng/mL
[2017-02-15 11:11] LABS: BASO # 0.01 [, K/mm3] (0.0-2.0); BASO % 0.1 % (0.0-3.0); EOS % 0.2 % (1.5-5.0); GRAN # 9.93 (1.4-6.5); GRAN % 86.5 % (50.0-68.0); HEMATOCRIT 42.2 % (36.0-48.0); LYMPH # 0.7 (1.2-3.4); LYMPH % 5.8 % (22.0-35.0); MEAN CELL VOLUME 87.9 fL (80.0-105.0); MEAN CORPUSCULAR HEMOGLOBIN 28.1 pg (25.0-35.0); MEAN PLATELET VOLUME 9.9 fl (7.0-11.0); MONO # 0.9 (0.1-0.6); MONO % 7.4 % (1.0-6.0); PLATELET COUNT 254 [, 10^3/uL] (120.0-450.0); RED CELL DISTRIBUTION WIDTH 15.9 % (11.5-14.5); WHITE BLOOD COUNT 11.5 [, 10^3/ul] (4.5-11.0)
--- NOTE | 2017-02-15 11:12 | RAD ---
HISTORY: chest pain COMPARISON: 01/12/2017 FINDINGS: LUNGS: No active pulmonary disease. PLEURA: Small to moderate left effusion CARDIOVASCULAR: Moderate cardiomegaly OSSEOUS STRUCTURES: No significant abnormalities. VISUALIZED UPPER ABDOMEN: Normal. OTHER FINDINGS: None. IMPRESSION: Small to moderate left pleural effusion
--- NOTE | 2017-02-15 11:23 | ED PDOC ---
Arrival/HPI - General Historian: Patient, Family - History of Present Illness Time/Duration: Prior to Arrival Symptom Onset: Sudden Symptom Course: Improving <Shoaib Alejandre - Last Filed: 02/15/17 13:05> <Kendrick Dockery DO - Last Filed: 02/15/17 18:14> - General Chief Complaint: Trauma Time Seen by Provider: 02/15/17 10:17 - History of Present Illness Narrative History of Present Illness (Text): 76 F with pmh of CAD, afib on pradaxa ,CHF, DM, presents with fall at home. Pt states that she was coming out of the shower and she fell. Pt denies losing consciousness prior to the fall. She denies any history of any seizure. She denies hitting her head or blacking out. Last week patient states that she was in bed and she rolled off the bed in middle of her sleep and got a contusion around her L eye. She denies any headaches, or neck pain. She currently denies any dizziness, f/c, cp, sob, palpitations, abd pain, urinary or bm changes. PMD: Dr Cisneros (Shoaib Alejandre) Past Medical History - Provider Review Nursing Documentation Reviewed: Yes - Infectious Disease Hx of Infectious Diseases: None - Cardiac Hx Cardiac Disorders: Yes (IA) Hx Atrial Fibrillation: Yes Hx Congestive Heart Failure: Yes Hx Hypertension: Yes - Pulmonary Hx Respiratory Disorders: No - Neurological Hx Neurological Disorder: Yes HX Cerebrovascular Accident: Yes - HEENT Hx HEENT Disorder: No - Renal Hx Renal Disorder: No - Endocrine/Metabolic Hx Endocrine Disorders: Yes Hx Diabetes Mellitus Type 2: Yes - Hematological/Oncological Hx Blood Disorders: No - Integumentary Hx Dermatological Disorder: No - Musculoskeletal/Rheumatological Hx Musculoskeletal Disorders: No Hx Falls: No - Gastrointestinal Hx Gastrointestinal Disorders: No - Genitourinary/Gynecological Hx Genitourinary Disorders: No - Psychiatric Hx Psychophysiologic Disorder: No Hx Substance Use: No - Surgical History Hx Cardiac Catheterization: Yes Hx Coronary Stent: Yes Other/Comment: CARDIAC STENT - Anesthesia Hx Anesthesia: No Hx Anesthesia Reactions: No Hx Malignant Hyperthermia: No <Shoaib Alejandre - Last Filed: 02/15/17 13:05> Family/Social History - Physician Review Nursing Documentation Reviewed: Yes Family/Social History: No Known Family HX Smoking Status: Former Smoker Hx Alcohol Use: No Hx Substance Use: No <Shoaib Alejandre - Last Filed: 02/15/17 13:05> Allergies/Home Meds <Shoaib Alejandre - Last Filed: 02/15/17 13:05> <Kendrick Dockery DO - Last Filed: 02/15/17 18:14> Allergies/Adverse Reactions: Allergies Iodinated Contrast Media - Oral and [Iodinated Contrast Media - IV Dye] Allergy (Verified 02/15/17 10:13) ANAPHYLAXIS Home Medications: Home Meds Medication Instructions Recorded Confirmed Aspirin [Ecotrin] 81 mg PO DAILY 12/25/15 02/15/17 Metoprolol Succinate [Toprol XL] 100 mg PO DAILY 12/25/15 02/15/17 Simvastatin [Zocor] 40 mg PO DAILY 12/25/15 02/15/17 metFORMIN [glucOPHAGE] 1,000 mg PO BID 12/25/15 02/15/17 Lasix 40 mg PO BID 12/28/15 02/15/17 Aspirin [Ecotrin] 81 mg PO DAILY 12/24/16 02/15/17 Spironolactone [Aldactone] 25 mg PO BID 12/24/16 02/15/17 Dabigatran [Pradaxa] 150 mg PO BID 02/15/17 02/15/17 Glimepiride [Amaryl] 4 mg PO BID 02/15/17 02/15/17 Review of Systems - Physician Review All systems were reviewed & negative as marked: Yes - Review of Systems Constitutional: absent: Fevers Eyes: absent: Vision Changes ENT: absent: Hearing Changes Respiratory: absent: SOB, Cough Cardiovascular: absent: Chest Pain, Palpitations Gastrointestinal: absent: Abdominal Pain, Diarrhea, Vomiting Genitourinary Female: absent: Dysuria, Frequency Musculoskeletal: absent: Arthralgias Skin: absent: Rash Neurological: absent: Headache, Dizziness, Focal Weakness Endocrine: absent: Diaphoresis Psychiatric: absent: Anxiety, Depression <Shoaib Alejandre - Last Filed: 02/15/17 13:05> Physical Exam Vital Signs Reviewed: Yes Temperature: Afebrile Blood Pressure: Normal Pulse: Regular Respiratory Rate: Normal Appearance: Positive for: Well-Appearing, Non-Toxic, Comfortable Mental Status: Positive for: Alert and Oriented X 3 - Systems Exam Head: Present: Normocephalic, Contusion (L forhead and eye ), Ecchymosis Pupils: Present: PERRL Mouth: Present: Moist Mucous Membranes Neck: Present: Normal Range of Motion Respiratory/Chest: Present: Clear to Auscultation, Good Air Exchange. No: Respiratory Distress, Accessory Muscle Use, Wheezes, Rales Cardiovascular: Present: Regular Rate and Rhythm, Normal S1, S2. No: Murmurs Abdomen: Present: Normal Bowel Sounds. No: Tenderness, Distention, Peritoneal Signs Upper Extremity: Present: Normal Inspection. No: Cyanosis, Edema Lower Extremity: Present: Normal Inspection, Edema (1+ ). No: CALF TENDERNESS Neurological: Present: GCS=15, CN II-XII Intact, Speech Normal Skin: Present: Warm, Dry, Normal Color. No: Rashes Psychiatric: Present: Alert, Oriented x 3, Normal Insight, Normal Concentration <Shoaib Alejandre - Last Filed: 02/15/17 13:05> Medical Decision Making <Shoaib Alejandre - Last Filed: 02/15/17 13:05> <Kendrick Dockery DO - Last Filed: 02/15/17 18:14> ED Course and Treatment: Impression: 76 F with pmh of CAD, afib on pradaxa ,CHF, DM, presents with fall at home. Differential Diagnosis included but are not limited to: Mechanical vs syncope vs seizure vs CVA Plan: CBC, CMP, urinalysis, CXR, Head & orbit CT - CXR showed Small to moderate L pleural effusion -- Reassess and disposition Prior Visits: Notes and results from previous visits were reviewed. On // patient came in complaining of . Patient was discharged * with prescription of . Progress Notes: Patient developed Afib with RVR here in the ED to HR 178bpm. Stat EKG, Stat Cardizem 20mg given. HR currently in the 80's 02/15/17 11:32 Blood sugar 368 - ordered 2 unit of regular insulin IVP stat 02/15/17 11:41 02/15/17 13:[address]: No evidence of any acute intracranial hemorrhage, mass affect or midline shift. Orbit CT: No evidence of acute fracture or significant acute pathology in the orbit EKG: Ordered, reviewed, and independently interpreted the EKG. Rate : 178 BPM Rhythm : NSR Interpretation : AFIB with Rapid Ventricular Response Comparison : 12/24/16 (Hill,Shoaib) 02/15/17 13:[address] James, who agrees and accepts patient to his service and admit to obs Telemetry. (Kendrick Dockery DO) - Lab Interpretations Lab Results: 02/15/17 10:35 02/15/17 10:35 Lab Results 02/15/17 12:45: Urine Color Light yellow, Urine Appearance Clear, Urine pH 6.0, Ur Specific [place] 1.015, Urine Protein Negative, Urine Glucose (UA) 250 H, Urine Ketones Negative, Urine Blood Trace-intact H, Urine Nitrate Negative, Urine Bilirubin Negative, Urine Urobilinogen 1.0 H, Ur Leukocyte Esterase Trace H, Urine RBC 0 - 2, Urine WBC 1 - 3, Ur Epithelial Cells 0 - 2, Urine Bacteria Few 02/15/17 12:06: POC Glucose (mg/dL) 304 H 02/15/17 11:20: NT-Pro-B Natriuret Pep 7470 H 02/15/17 11:00: TSH 3rd Generation 9.14 H 02/15/17 10:35: Sodium 127 L, Potassium 4.6, Chloride 86 L, Carbon Dioxide 27, Anion Gap 19, BUN 33 H, Creatinine 1.3, Est GFR ( Amer) 48, Est GFR (Non- Af Amer) 40, Random Glucose 368 H* D, Calcium 9.2, Magnesium 2.0, Total Bilirubin 1.3, AST 26, ALT 22, Alkaline Phosphatase 130, Lactate Dehydrogenase 661, Total Creatine Kinase 44, Troponin I 0.02 D, Total Protein 8.2, Albumin 3.8, Globulin 4.4, Albumin/Globulin Ratio 0.9 L 02/15/17 10:35: WBC 11.5 H D, RBC 4.80, Hgb 13.5, Hct 42.2, MCV 87.9, MCH 28.1, MCHC 32.0, RDW 15.9 H, Plt Count 254, MPV 9.9, Gran % 86.5 H, Lymph % (Auto) 5.8 L, [place] % (Auto) 7.4 H, Eos % (Auto) 0.2 L, Baso % (Auto) 0.1, Gran # 9.93 H , Lymph # 0.7 L, [place] # 0.9 H, Eos # 0.0, Baso # 0.01 - RAD Interpretation Radiology Orders: 02/15/17 10:22 CHEST PORTABLE [RAD] Stat 02/15/17 10:23 HEAD W/O CONTRAST [CT] Stat ORBITS/ FACIALS W/O CONTRAST [CT] Stat - Medication Orders Current Medication Orders: Aspirin (Ecotrin) 81 mg PO DAILY [facility] Last Admin: 02/15/17 14:41 Dose: Not Given Non-Admin Reason: Patient Refused Comments: Patient syas she took at home. Atorvastatin Calcium (Lipitor) 20 mg PO HS RAMSEY Dabigatran (Pradaxa) 150 mg PO BID [facility] PRN Reason: Protocol Last Admin: 02/15/17 17:26 Dose: 150 mg Diltiazem HCl (Cardizem) 10 mg IVP ONCE ONE Stop: 02/15/17 18:05 Furosemide (Lasix) 40 mg PO BID [facility] Last Admin: 02/15/17 17:26 Dose: 40 mg Glimepiride (Amaryl) 4 mg PO BID [facility] Last Admin: 02/15/17 17:26 Dose: 4 mg diltiaZEM IVPB 100mg in NS (Cardizem 100mg In Ns) 100 mls @ 5 mls/hr IV .Q20H PRN; Protocol; 5 MG/HR PRN Reason: TITRATE PER MD ORDER Insulin Human Regular (Humulin R Low) 0 units SC ACHS [facility] PRN Reason: Protocol Last Admin: 02/15/17 16:58 Dose: Not Given Non-Admin Reason: Blood Sugar Parameter Metoprolol Succinate (Toprol Xl) 100 mg PO DAILY [facility] Spironolactone (Aldactone) 25 mg PO BID [facility] Last Admin: 02/15/17 17:29 Dose: 25 mg Discontinued Medications Diltiazem HCl (Cardizem) Confirm Administered Dose 25 mg .ROUTE .STK-MED ONE Stop: 02/15/17 10:21 Last Admin: 02/15/17 10:55 Dose: Diltiazem HCl (Cardizem) 20 mg IVP STAT STA Stop: 02/15/17 10:25 Last Admin: 02/15/17 10:38 Dose: 20 mg Insulin Human Regular (Humulin R) 2 units IVP STAT STA Stop: 02/15/17 11:41 Last Admin: 02/15/17 12:15 Dose: 2 units - PA / NEUROPSYCHOLOGY DIVISION CHIEF / Resident Statement [facility] has reviewed & agrees with the documentation as recorded. [facility] has examined the patient and agrees with the treatment plan. <Shoaib Alejandre - Last Filed: 02/15/17 13:05> Disposition/Present on Arrival - Present on Arrival Any Indicators Present on Arrival: Yes History of DVT/PE: No History of Uncontrolled Diabetes: Yes Urinary Catheter: No History of Decub. Ulcer: No History Surgical Site Infection Following: None - Disposition Have Diagnosis and Disposition been Completed?: Yes Disposition Time: 01:00 Patient Plan: Admission <Shoaib Alejandre - Last Filed: 02/15/17 13:05> <Kendrick Dockery DO - Last Filed: 02/15/17 18:14> - Disposition Diagnosis: Fall, Rapid atrial fibrillation Disposition: HOSPITALIZED Patient Problems: Current Active Problems Problem Status Onset Rapid atrial fibrillation Acute Fall Acute Condition: FAIR Critical Care Time <Shoaib Alejandre - Last Filed: 02/15/17 13:05> - Critical Care Note Total Time (in mins): 45 Documented critical care: time excludes all time spent performing seperately billable procedures. <Kendrick Dockery DO - Last Filed: 02/15/17 18:14> - Critical Care Note Comments: rapid a-fib (Kendrick Dockery DO)
[2017-02-15] MEDS ORDERED: Insulin Regular 1 UNITS/0.01 ML ML IVP STA (11:40)
--- NOTE | 2017-02-15 12:17 | CT ---
PROCEDURE: CT HEAD WITHOUT CONTRAST. HISTORY: r/o ICH and fx s/p fall COMPARISON: None available. TECHNIQUE: Axial computed tomography images were obtained through the head/brain without intravenous contrast. Radiation dose: Total exam DLP = 768.25 mGy-cm. This CT exam was performed using one or more of the following dose reduction techniques: Automated exposure control, adjustment of the mA and/or kV according to patient size, and/or use of iterative reconstruction technique. FINDINGS: HEMORRHAGE: No intracranial hemorrhage. BRAIN: No mass effect or edema. Mild atrophy is noted. Zbop-ye-fwxvshbr white matter changes are also noted suggestive but nonspecific for chronic microvascular ischemic disease. VENTRICLES: Unremarkable. No hydrocephalus. CALVARIUM: Unremarkable. PARANASAL SINUSES: Unremarkable as visualized. No significant inflammatory changes. MASTOID AIR CELLS: Unremarkable as visualized. No inflammatory changes. OTHER FINDINGS: None. IMPRESSION: No evidence of acute intracranial hemorrhage mass effect or midline shift. Atrophy and presumed chronic microvascular ischemic disease.
--- NOTE | 2017-02-15 12:31 | CT ---
PROCEDURE: CT ORBITS WITHOUT CONTRAST. HISTORY: r/o fx s/p fall COMPARISON: None available. TECHNIQUE: Axial CT images of the orbits were obtained. Coronal and sagittal reformats were generated. Radiation dose: Total exam DLP = 680.8 mGy-cm. This CT exam was performed using one or more of the following dose reduction techniques: Automated exposure control, adjustment of the mA and/or kV according to patient size, and/or use of iterative reconstruction technique. FINDINGS: RIGHT ORBIT: RIGHT BONY ORBIT: Normal. RIGHT INTRAORBITAL STRUCTURES: Globe: Normal. Extraocular muscles: Normal. Post septal space: Normal. Optic Nerve: Normal. Lacrimal Apparatus: Normal. RIGHT PRESEPTAL SOFT TISSUES: Normal. LEFT ORBIT: LEFT BONY ORBIT: Normal. LEFT INTRAORBITAL STRUCTURES: Globe: Normal. Extraocular muscles: Normal. Post septal space: Normal Optic Nerve: Normal. . Lacrimal Apparatus: Normal. LEFT PRESEPTAL SOFT TISSUES: Normal. OTHER: None. IMPRESSION: No evidence of acute fracture or significant acute pathology in the orbits.
[2017-02-15 13:00] LABS: URINE BILIRUBIN NEGATIVE (NEGATIVE); URINE BLOOD TRACE-INTACT (NEGATIVE); URINE GLUCOSE (UA) 250 mg/dL (NEGATIVE); URINE KETONE NEGATIVE (NEGATIVE); URINE LEUKOCYTE ESTERASE TRACE Leu/uL (NEGATIVE); URINE PROTEIN NEGATIVE mg/dL (<30 mg/dL)
[2017-02-15 13:01] LABS: URINE APPEARANCE CLEAR (CLEAR); URINE COLOR LIGHT YELLOW (YELLOW)
[2017-02-15 13:09] LABS: URINE BACTERIA FEW (NEG); URINE EPITHELIAL CELLS 0 - 2 /hpf (0-5); URINE RBC 0 - 2 /hpf (0-2)
--- NOTE | 2017-02-15 13:44 | CARD ---
APPROVED REPORT EKG Measurement Heart [id number] <Conclusion> Atrial fibrillation with rapid ventricular response NSSTW changes
[2017-02-15 15:32] VITALS: O2SAT 97
[2017-02-15] MEDS: Insulin Reg-LOW-Coverage SC SCH ×2 (16:58→22:00)
[2017-02-15] MEDS: diltiaZEM IVPB 100mg in NS 100 ML IV PRN (18:36)
[2017-02-16] MEDS: diltiaZEM IVPB 100mg in NS 100 ML IV PRN (05:27)
[2017-02-16] MEDS: Insulin Reg-LOW-Coverage SC SCH ×4 (08:04→22:48)
[2017-02-16] MEDS: Metoprolol Succinate 100 mg XL Tab PO SCH (10:47)
--- NOTE | 2017-02-16 11:01 | CON ---
DATE: 02/16/2017 INDICATIONS: Syncope, rapid atrial fibrillation. HISTORY OF PRESENT ILLNESS: This is a 76-year-old woman admitted yesterday after a fall at home. It may have been a mechanical fall coming out of the shower; she is not sure but denies loss of consciousness. She has a prior fall when she rolled out of bed a week prior to admission. On arrival to the Emergency Room, she was in atrial fib with rapid ventricular response. Subsequently, she has been admitted to telemetry. She is currently in atrial fibrillation with a moderate ventricular response. She denies chest pain, shortness of breath, orthopnea, PND, vertigo, palpitations, edema, claudication , fever, chills, cough, sputum production, hemoptysis, abdominal pain, nausea, vomiting, diarrhea, constipation, or melena. PAST MEDICAL HISTORY: Notable for coronary artery disease with remote coronary intervention and myocardial infarction. She has history of congestive heart failure, diabetes, hyperlipidemia, gallstones. An echocardiogram has demonstrated moderate mitral regurgitation, mild functional mitral stenosis, moderate to severe tricuspid regurgitation and severe pulmonary hypertension. MEDICATIONS: At the time of admission, her medications included Lasix, spironolactone, glimepiride, aspirin, Pradaxa, metoprolol, simvastatin, and metformin. ALLERGIES: SHE NOTES AN ALLERGY TO CONTRAST MEDIA. SHE HAS NOT TOLERATED WILBER INHIBITORS. SOCIAL HISTORY: She does not smoke. She does not drink alcohol. She lives at home. FAMILY HISTORY: Positive for heart disease. REVIEW OF SYSTEMS: A 10-point review of systems is unremarkable except as noted above. PHYSICAL EXAMINATION: GENERAL: She is a well-developed elderly woman lying in bed, in no acute distress. VITAL SIGNS: Notable for atrial fibrillation with a moderate ventricular response. She is afebrile. Blood pressure 129/66, respirations 18-19, O2 sat 97% on room air. HEENT: Reveals no neck vein distention, thyromegaly, or carotid bruits. Mucous membranes are moist. Conjunctivae are pink. NECK: Supple. LUNG LEVIN: Scattered rhonchi are noted. HEART: Revealed an irregular rhythm with normal first and second heart sounds. There is a systolic murmur along the left sternal border and at the cardiac apex. ABDOMEN: Soft. Bowel sounds are present. There is no mass, organomegaly, tenderness, rebound, guarding or CVA tenderness. No palpable abdominal aortic aneurysm is appreciated. EXTREMITIES: Revealed no cyanosis, clubbing, or edema. NEUROLOGIC: She is awake, alert and oriented. SKIN: Warm and dry. No rash or cellulitis. PSYCHIATRIC: Normal as to mood and affect. LABORATORY AND IMAGING: Chest x-ray reveals small to moderate left pleural effusion. EKG demonstrates atrial fibrillation, rapid ventricular response, nonspecific ST-wave changes. CT scan of the head reveals no evidence of acute intracranial hemorrhage effect, atrophy, chronic microvascular ischemic disease. Orbit CT: No evidence of acute fracture or acute pathology in the orbits. CBC is notable for white count of 11,500, hemoglobin 13.5, hematocrit 42.2, platelet count normal. Sodium was low at 127, chloride was low at 86, BUN 33, creatinine 1.3, potassium 4.6. Blood sugar is elevated in the 300 range. LFTs are unremarkable. CK is 44. Two troponins are negative. BNP 7470. TSH is high at 9.14. IMPRESSION: The patient is a 76-year-old woman with a syncopal episode, possibly a mechanical fall, uncertain details, found to have atrial fibrillation with rapid ventricular response upon admission with chronic atrial fibrillation in the past, on Pradaxa, with a history of valvular heart disease, coronary artery disease, remote myocardial infarction and remote coronary intervention. PLAN: At this time, I agree with current plans. She is on telemetry. She is on IV Cardizem which we can convert to oral. She is on metoprolol, Pradaxa, Lipitor, Lasix, aspirin, glimepiride, spironolactone. She should be considered a high fall risk. We will have to reconsider treatment with Pradaxa given her increased risk of fall with the potential for trauma, head injury, etc. I will review her old records and echocardiogram. We will continue monitoring. We will monitor I's and O's, check stool for occult blood. I will repeat her electrolytes today. If the sodium level is low , we will restrict fluids and hold diuretics. She can be out of bed to a chair. I will follow along with you. I will make additional recommendations based on her clinical course. Alhaji Kong MD cc: [id number] TT: 02/16/2017 11:00:41 Confirmation # [id number] Dictation # [id number] eladio NELSON
[2017-02-16 11:10] LABS: CALCIUM 8.9 mg/dL (8.4-10.5); POTASSIUM 3.8 mmol/L (3.6-5.0)
--- NOTE | 2017-02-16 16:11 | HP ---
CHIEF COMPLAINT AND HISTORY OF PRESENT ILLNESS: This is a 76-year-old female who is coming into the hospital complaining of a fall. The patient says that she was coming out of the shower when she fell . This is her second fall. She had hit her left temporal, left orbital area. The patient says that she did not lose consciousness. She remembers hitting her head, but says she did not lose any consc iousness. She denies any weakness in the arms or the legs. She also states that she had rolled off her bed in the middle of the night about a week ago and also had a fall. The patient denied any feve rs or chills. No nausea, no vomiting, no dysuria, frequency. She said the vision is fine. She has a past medical history of coronary artery disease, she has atrial fibrillation, is on Pradaxa, diabete s type 2 and CHF. ALLERGIES: IODINATED CONTRAST MEDIA. HOME MEDICATIONS: Aspirin, Toprol, Zocor, Glucophage, Lasix, Aldactone, Pradaxa, Amaryl. PAST MEDICAL HISTORY: 1. Atrial fibrillation. 2. Diabetes type 2. 3. Coronary artery disease. 4. Dyslipidemia. 5. Pulmonary hypertension. 6. Tricuspid regurg moderate. 7. Pulmonary hypertension. 8. Severe transaminitis. FAMILY HISTORY: She had a mother who had coronary disease and high blood pressure. SOCIAL HISTORY: No smoking, no drinking. She lives with her son. PHYSICAL EXAMINATION: VITAL SIGNS: Temperature is 98.3, pulse of 60, blood pressure 117/52, respirations 16, height is 5 feet 3 inches, weight is 136 pounds. BMI is 24. GENERAL: Patient lying in bed, flat, and in no apparent distress. HEAD AND NECK EXAM: Atraumatic, normocephalic. Conjunctivae are pink. Throat clear and mouth with moist mucosa. Oropharynx benign. In the left periorbital area, there is ecchymosis, significant. EYES: Extraocular movements are intact. PERRLA. NECK: Supple. No JVD, thyromegaly, or adenopathy. No bruits. HEART: S1 and S2 regular rate and rhythm. No murmurs, rubs, or gallops. LUNGS: Clear to auscultation bilaterally. No wheezing rales or rhonchi appreciated. No retraction s on exam. ABDOMEN: Soft, nontender, nondistended. Bowel sounds are positive in all quadrants. No rebound. No hepatosplenomegaly. EXTREMITIES: No cyanosis, clubbing, or edema. NEURO: No facial asymmetry, tongue is midline, no uvula deviation. Power is 5/5 in upper extremity and 5/5 in lower extremity. Sensation is normal in upper extremity and lower extremity. PSYCH: Awake, alert, oriented x3. No anxiety or depression symptoms. Good insight. Normal affec t. : No CVA tenderness VASCULAR: 2+ pulses in carotid and pedal pulses. SKIN: No erythema or abnormal nodules noted. SPINE: Normal curvature. LYMPHADENOPATHY: No anterior cervical or posterior cervical adenopathy. No inguinal adenopathy. LABORATORY DATA: White count of 11.5, hemoglobin 13.5, platelet count is 254. Chemistry shows a sod ium 132, creatinine is 1.1. Troponin is 0.03. TSH is 9.1. Urine shows blood that is trace, nitrite s are negative, bilirubin is negative. ASSESSMENT: 1. Fall. 2. Atrial fibrillation. 3. Diabetes type 2. 4. Coronary artery disease. 5. Dyslipidemia. 6. Pulmonary hypertension. 7. Tricuspid regurgitation. 8. Pulmonary hypertension. PLAN: The patient is currently comfortable. Will need her Pradaxa on hold. Will get Dr. Kong to evaluate the patient. I will also get Dr. Baxter from neurology. She is going to need physical therapy resident apy. She also had rapid AFib, so she was placed on Cardizem. She is on Aldactone. This will be con tinued. She is on Lasix daily. The patient is on metoprolol. This will be continued as well. She is on a heart healthy diet. I have ordered physical therapy for her. She is on Amaryl for her diabet es. She is going to be on insulin sliding scale. She most likely will need subacute rehab. I will a wait further input from physical therapy before I make a decision. Ben James MD cc: [id number] TT: 02/16/2017 15:07:22 steve
--- NOTE | 2017-02-16 18:14 | CON ---
DATE: 02/16/2017 CHIEF COMPLAINT: Status post fall and near syncope. HISTORY OF PRESENT ILLNESS: This is a 76-year-old woman with history of atrial fibrillation on Yesica xa, history of type 2 diabetes mellitus, coronary artery disease, dyslipidemia, pulmonary hypertensio n, moderate tricuspid regurgitation, severe transaminitis, who has been having multiple falls. Appar ently, she was coming out of the shower and she fell. This is this her second fall. She had hit the left temporal and left orbital area where she has now ecchymosis. She did not lose any consciousnes s. She remembers hitting her head, but she says she did not lose any consciousness. She hit her hea d a couple days ago, in which she rolled off the bed in the middle the night and hit the left side of her head, which resulted in the ecchymosis in the left temporal orbital area. She denies any confus ion episodes. She says that her vision is fine. Her Pradaxa is currently on hold. CT head showed n o acute intracranial abnormality. She was given IV Cardizem to convert her back to sinus rhythm from her afib with rapid ventricular response. She is currently eating without any difficulty. She constanza es any focal weakness or paresthesias in the extremities at this time. She has baseline numbness and tingling in her feet from underlying diabetes. PAST MEDICAL HISTORY: History of afib, type 2 diabetes mellitus, coronary artery disease, dyslipidem ia, pulmonary hypertension, tricuspid regurgitation, moderate pulmonary hypertension, severe transami nitis. ALLERGIES: IODINATED CONTRAST MEDIA. HOME MEDICATIONS: Aspirin, metoprolol, Zocor, Glucophage, Lasix, Aldactone, Pradaxa, Amaryl. FAMILY HISTORY: Mother had coronary artery disease and high blood pressure. SOCIAL HISTORY: No illicit drug use, smoking, or EtOH abuse. PHYSICAL EXAMINATION: VITAL SIGNS: Temperature of 98.3, pulse rate 60, blood pressure 117/52, respiratory rate of 16. GENERAL: The patient is sitting up in bed in no acute distress. HEENT: Atraumatic, normocephalic. PERRLA. Extraocular muscles intact. She has ecchymosis of the le ft periorbital area. NECK: Supple, no JVD, no adenopathy noted. LUNGS: Clear to auscultation. No adventitious sounds. HEART: Irregular rate and rhythm. No murmurs, rubs, or gallops. S1, S2 present. ABDOMEN: Soft, nontender, nondistended. Bowel sounds are present. EXTREMITIES: No clubbing, no cyanosis. Peripheral pulses 2+ bilaterally. NEUROLOGIC: The patient is alert, oriented to person, place and year. Recall after 5 minutes is 0/3 . Poor attention span, slow thought process. Cranial nerves II-XII are intact. MOTOR: Slight increased tone throughout. Moves all extremities equally. No pronator drift seen. SENSORY: Decreased light touch and pinprick up to the calves bilaterally. DTRs are 1+ throughout an d zero at the ankles. COORDINATION: Qysojp-pi-umoc intact. GAIT: Deferred for now. LABORATORIES: Sodium is 133, potassium 3.8, chloride of , carbon dioxide of 33, BUN of 26, crea tinine 1.1. Random glucose of 57. ASSESSMENT AND PLAN: This is a 76-year-old woman with history of type 2 diabetes mellitus, atrial fi brillation, coronary artery disease, dyslipidemia, pulmonary hypertension, tricuspid regurgitation an d severe pulmonary hypertension who came in with her second fall. She says she just fell a couple da ys ago out of bed and has had a mechanical fall going out of the shower. Denies any loss of consciou sness or any lightheadedness. Blood sugar is 57 today. She came in with elevated blood sugars. Now she is currently with no acute events. TSH is 9.14, which is elevated. She is slightly dehyd rated. She has low systolic blood pressure and diastolic blood pressure, which was seen initially wh en she came in. She is stable. She denies any lightheadedness or a spinning sensation of the room. Her CT head showed no acute intracranial abnormalities. She has ecchymosis along her left orbit, bu t is doing well. At this time her multiple falls are likely secondary to underlying deconditioned st ate, superimposed underlying peripheral neuropathy, underlying type 2 diabetes, as well as transient cerebral hypoperfusion to the brain from drop in blood pressures. At this time, recommend: 1. Orthostatic vital signs. 2. May need to reconsider using Pradaxa since the patient at this time is her second fall in which r esulted in a bleed in her head. Though she has afib, she is at risk for strokes, need to see what ca rdiology would want to decide. 3. Needs diabetic education and is on Amaryl for her diabetes. Need to keep her blood sugars betwee n 140-180. 4. Would recommend physical and occupational therapy and possible subacute rehab. At this time, christy tinue with current present medical management. No further neurological workup needed at this time. Please reconsult if necessary. Charlie Baxter MD cc: [id number] TT: 02/16/2017 18:14:06 Confirmation # [id number] Dictation # [id number] mn
[2017-02-17 06:32] LABS: HEMATOCRIT 37.5 % (36.0-48.0); MEAN CELL VOLUME 85.8 fL (80.0-105.0); MEAN CORPUSCULAR HEMOGLOBIN 28.6 pg (25.0-35.0); MEAN CORPUSCULAR HGB CONC 33.3 g/dl (31.0-37.0); MEAN PLATELET VOLUME 9.1 fl (7.0-11.0); RED CELL DISTRIBUTION WIDTH 15.1 % (11.5-14.5); WHITE BLOOD COUNT 13.3 [, 10^3/ul] (4.5-11.0)
[2017-02-17 06:42] VITALS: RESP 18
[2017-02-17 06:52] LABS: ALB/GLOB RATIO 0.8 (1.1-1.8); BILIRUBIN,TOTAL 1.4 mg/dL (0.2-1.3); CALCIUM 8.7 mg/dL (8.4-10.5); POTASSIUM 4.6 mmol/L (3.6-5.0); TOTAL PROTEIN 7.2 g/dL (5.8-8.3)
--- NOTE | 2017-02-17 07:05 | PN ---
DATE: 02/17/2017 SUBJECTIVE: The patient has no complaints of any chest pain, no shortness of breath, no headaches. PHYSICAL EXAMINATION: VITAL SIGNS: Temperature is 99.7, pulse of 90, blood pressure 117/66, respirations 19. GENERAL: The patient comfortable, in no acute distress. HEENT: Anicteric sclerae. Moist mucosa. Left periorbital ecchymosis. NECK: No JVD or adenopathy. CARDIAC: S1/S2. No murmurs. No rubs. Regular. RESPIRATORY: Clear to auscultation bilaterally. No wheezes, rales, or rhonchi. Good air entry. ABDOMEN: Bowel sounds are positive, soft, nontender, and nondistended. EXTREMITIES: No edema. Has 1+ pulses. LABS: Last creatinine was 1.1. Orbital CT done shows no evidence of acute fracture or significant acute pathology. ASSESSMENT: 1. Fall. 2. Atrial fibrillation, off anticoagulation. 3. Diabetes, type 2. 4. Coronary artery disease. 5. Pulmonary hypertension. 6. Tricuspid regurgitation. PLAN: The patient is currently on Aldactone. She is going to continue on Amaryl for diabetes. She is on Cardizem for her atrial fibrillation. The patient is receiving metoprolol. She is tolerating her diet. Ben James MD cc: [id number] TT: 02/17/2017 07:05:35 Confirmation # [id number] Dictation # [id number] leadio
[2017-02-17] MEDS: Insulin Reg-LOW-Coverage SC SCH ×2 (07:49→12:02)
[2017-02-17] MEDS: Metoprolol Succinate 100 mg XL Tab PO SCH (09:35)
--- NOTE | 2017-02-17 11:37 | PN ---
DATE: 02/17/2017 SUBJECTIVE: The patient is seen lying in bed on telemetry. She is comfortable at the present time. She does have some tenderness around her left orbit after her fall. Significant ecchymosis is prese nt. CURRENT MEDICATIONS: Include Aldactone 25 mg b.i.d., Amaryl 4 mg b.i.d., Cardizem 30 mg q.i.d., Ecot rin once daily, insulin, Lasix 40 mg b.i.d., Lipitor 20 mg daily, Pradaxa 150 mg b.i.d., Toprol-XL 10 0 mg daily. OBJECTIVE: GENERAL: She is an elderly woman who appears comfortable at rest. VITAL SIGNS: Her blood pressure is 114/74 with a pulse of 70-100 in atrial fibrillation, respiration s are 16. She is afebrile. HEENT: A large left periorbital ecchymosis is present. CHEST: A few scattered rhonchi. HEART: Rhythm is irregularly irregular with a systolic murmur at the lower left sternal border as we ll as at the apex. ABDOMEN: Soft, nontender, normoactive bowel sounds. EXTREMITIES: No edema. DIAGNOSTIC DATA: Potassium 4.6, BUN and creatinine are 26 and 1.3. White count 13.3, with a hemoglo bin and hematocrit of 12.5 and 37.5, platelet count 228,000. IMPRESSION: 1. Recent fall, unclear if this was due to syncope. 2. Chronic atrial fibrillation with controlled ventricular response at present. 3. Multivalvular heart disease. 4. Coronary artery disease, status post remote myocardial infarction and percutaneous coronary inter vention. RECOMMENDATIONS: Her current medications should continue. Rate control therapy for atrial fibrillat ion will be maintained. Anticoagulant therapy will be continued as well as there has been no evidenc e of intracranial bleeding. If she has recurrent falls, the safety of chronic anticoagulation will n eed to be reassessed. We will follow along and make further recommendations as appropriate. Otis Osorio MD cc: [id number] TT: 02/17/2017 11:36:11 Confirmation # [id number] Dictation # [id number] mn
[2017-02-17 11:58] VITALS: TEMP 98.5
[2017-02-17 13:03] VITALS: BP 116/70; PULSE 93
--- NOTE | 2017-02-18 18:32 | CON ---
DATE: 02/17/2017 HISTORY OF PRESENT ILLNESS: This is a 76-year-old female with past medical history of diabetes, atri al fibrillation, coronary artery disease, pulmonary hypertension. The patient came [facility] home. The patient fell and developed a raccoon in the left eye and sitting comfortabl y. CAT scan of the head was done, which did not show any intracerebral bleed and the patient was tra nsferred from the medical floor to the rehabilitation. PAST MEDICAL HISTORY: Diabetes, AFib, coronary artery disease, hypertension. PLAN: Continue physical therapy. We will follow up. Atul Baxter MD cc: [id number] TT: 02/18/2017 18:32:00 Confirmation # [id number] Dictation # [id number] ln
--- NOTE | 2017-02-28 14:22 | DS ---
This is a 76-year-old female who came into the hospital because of a fall. Please see the note rosa koroma on 02/17/2017 for details. Ben James MD cc: [id number] TT: 02/28/2017 14:21:43 en
== END 2017-02-17 14:18 | DRG 310 ==
LOC: ED 10:01 → OBSVTOIN 12:58 → ERH 12:58 → 2RNO 15:34
PROVIDERS: ADMIT Internal Medicine Nephrology; ATTEND Internal Medicine Nephrology
DX: I48.2 Chronic atrial fibrillation (principal); I27.2 Other secondary pulmonary hypertension; I11.0 Hypertensive heart disease with heart failure; I50.9 Heart failure, unspecified; E11.9 Type 2 diabetes mellitus without complications; R29.6 Repeated falls; Z91.81 History of falling; E78.5 Hyperlipidemia, unspecified; I25.10 Atherosclerotic heart disease of native coronary artery without angina pectoris; I08.1 Rheumatic disorders of both mitral and tricuspid valves; E86.0 Dehydration; I25.2 Old myocardial infarction; Z82.49 Family history of ischemic heart disease and other diseases of the circulatory system

== ENCOUNTER 2017-02-17 14:28 | Inpatient (IN) | payer BC, OTHER ==
[2017-02-17] MEDS: Insulin Reg-LOW-Coverage SC SCH ×2 (17:18→22:12)
[2017-02-17] MEDS ORDERED: Pneumococcal 23-Valent Vaccine IM ONE (17:53)
[2017-02-17 18:14] VITALS: BMI 25.1
--- NOTE | 2017-02-18 06:49 | PN ---
DATE: 02/18/2017 SUBJECTIVE: The patient has no complaint of any chest pain. No shortness of breath, no headaches. She says she is tolerating her diet. PHYSICAL EXAMINATION: VITAL SIGNS: Temperature is 97.8, pulse of 53, blood pressure is 91/55, respirations ____. GENERAL: The patient comfortable, in no acute distress. HEENT: Left periorbital ecchymosis. Anicteric sclerae. Moist mucosa. NECK: No JVD or adenopathy. CARDIAC: S1/S2. No murmurs. No rubs. Regular. RESPIRATORY: Clear to auscultation bilaterally. No wheezes, rales, or rhonchi. Good air entry. ABDOMEN: Bowel sounds are positive, soft, nontender, and nondistended. EXTREMITIES: No edema. Has 1+ pulses. ASSESSMENT: 1. Fall. 2. Atrial fibrillation. Anticoagulation is on hold secondary to fall. 3. Diabetes type 2. 4. Coronary artery disease. 5. Pulmonary hypertension. 6. Tricuspid regurgitation. PLAN: The patient is currently comfortable. She is receiving Aldactone. The patient is on Amaryl f or diabetes. She is on aspirin daily. The patient is on Lipitor for dyslipidemia, is on metoprolol. She is on a heart healthy diet. Ben James MD cc: [id number] TT: 02/18/2017 06:49:28 Confirmation # [id number] Dictation # [id number] tn
[2017-02-18] MEDS: Insulin Reg-LOW-Coverage SC SCH ×4 (06:51→22:38)
[2017-02-18] MEDS: Metoprolol Succinate 100 mg XL Tab PO SCH (11:01)
[2017-02-19] MEDS: Insulin Reg-LOW-Coverage SC SCH ×4 (06:43→22:18)
[2017-02-19] MEDS: Metoprolol Succinate 100 mg XL Tab PO SCH (09:28)
[2017-02-20] MEDS: Insulin Reg-LOW-Coverage SC SCH ×4 (06:37→21:38)
[2017-02-20] MEDS: Metoprolol Succinate 100 mg XL Tab PO SCH (09:50)
[2017-02-21] MEDS: Insulin Reg-LOW-Coverage SC SCH ×4 (06:33→22:36)
[2017-02-21] MEDS: Metoprolol Succinate 100 mg XL Tab PO SCH (10:42)
[2017-02-22] MEDS: Insulin Reg-LOW-Coverage SC SCH ×4 (07:17→21:53)
--- NOTE | 2017-02-22 09:03 | PN ---
DATE: 02/22/2017 SUBJECTIVE: The patient has no complaints of any chest pain, no shortness of breath, no headaches. PHYSICAL EXAMINATION: VITAL SIGNS: Temperature is 98.3, pulse is , blood pressure is 122/64, respiration is 14. GENERAL: The patient comfortable, in no acute distress. HEENT: Left periorbital ecchymosis, slowly improving. Anicteric sclerae. Moist mucosa. NECK: No JVD or adenopathy. CARDIAC: S1/S2. No murmurs. No rubs. Regular. RESPIRATORY: Clear to auscultation bilaterally. No wheezes, rales, or rhonchi. Good air entry. ABDOMEN: Bowel sounds are positive, soft, nontender, and nondistended. EXTREMITIES: No edema. Has 1+ pulses. ASSESSMENT: 1. Fall. 2. Atrial fibrillation, anticoagulation on hold. 3. Diabetes type 2. 4. Coronary artery disease. 5. Pulmonary hypertension. 6. Tricuspid regurgitation. 7. Diabetes type 2. 8. Delirium. PLAN: The patient is currently comfortable. The patient is on Amaryl. The patient is going to cont in on Cardizem for her atrial fibrillation. She is on aspirin. She is going to be on Lipitor for dyslipidemia. She is on metoprolol. She did have episode of confusion. She had been placed on 1:1. She has delirium. Will . Ben James MD cc: [id number] TT: 02/22/2017 08:05:40 Confirmation # [id number] Dictation # [id number] en
[2017-02-22] MEDS: Metoprolol Succinate 100 mg XL Tab PO SCH (09:53)
--- NOTE | 2017-02-23 01:37 | PN ---
DATE: 02/20/2017 SUBJECTIVE: She is comfortable in bed, in no acute distress. Denies any chest pain. No shortness of breath, no headache, no nausea, no vomiting. Appetite is good, participating in physical therapy. REVIEW OF SYSTEMS: As per HPI. Rest of 12-point review of systems negative. PHYSICAL EXAMINATION: GENERAL: Comfortable in bed, in no acute distress. VITAL SIGNS: Blood pressure 120/70, respiratory rate 15 per minute. HEENT: Negative. NECK: No lymphadenopathy. CHEST: Air entry present, equal bilateral. No added sound. CARDIOVASCULAR: Within normal limits. S1, S2 normal. No murmur, no gallop. ABDOMEN: Soft, nontender, no hepatosplenomegaly. EXTREMITIES: No edema. 1+ pulses. CENTRAL NERVOUS SYSTEM: Alert, oriented x 3. No sensory motor deficit. MEDICATIONS: Aspirin 81 mg daily, Lipitor 20 mg daily, Cardizem 30 mg p.o. q.i.d., Lasix 40 mg b.i.d., Amaryl 4 mg p.o. b.i.d., insulin as per sliding scale, metoprolol 100 mg daily, Aldactone 25 mg b.i.d. Labs : reviewed. ASSESSMENT: 1. Atrial fibrillation, anticoagulation on hold. 2. Diabetes mellitus type 2. 3. Coronary artery disease. 4. Pulmonary hypertension. 5. Tricuspid regurgitation. 6. Delirium. PLAN: Hold anticoagulation for now. Continue cardiac medications including Cardizem. She is on Lipitor for hyperlipidemia and beta blockers CAD : stable. PHT : stale. . Delirium improved. Nancy Chow MD cc: [id number] TT: 02/23/2017 01:36:56 Confirmation # [id number] Dictation # [id number] jn MTDD
[2017-02-23] MEDS: Insulin Reg-LOW-Coverage SC SCH ×4 (06:33→22:39)
[2017-02-23 07:12] LABS: HEMATOCRIT 38.5 % (36.0-48.0); MEAN CELL VOLUME 85.9 fL (80.0-105.0); MEAN CORPUSCULAR HEMOGLOBIN 29.2 pg (25.0-35.0); MEAN PLATELET VOLUME 8.8 fl (7.0-11.0); RED CELL DISTRIBUTION WIDTH 15.3 % (11.5-14.5); WHITE BLOOD COUNT 16.1 10^3/ul (4.5-11.0)
[2017-02-23 07:14] LABS: ALB/GLOB RATIO 0.8 (1.1-1.8); BILIRUBIN,TOTAL 1.4 mg/dL (0.2-1.3); CALCIUM 8.8 mg/dL (8.4-10.5); MAGNESIUM 2.1 mg/dL (1.7-2.2); PHOSPHOROUS 3.8 mg/dL (2.5-4.5); POTASSIUM 4.1 mmol/L (3.6-5.0); TOTAL PROTEIN 7.3 g/dL (5.8-8.3)
[2017-02-23] MEDS: Metoprolol Succinate 100 mg XL Tab PO SCH (07:52)
--- NOTE | 2017-02-23 14:17 | CON ---
DATE: 02/23/2017 Shortly, patient is a 76-year-old female with not known previous psychiatric history. The patient denied. The patient has multiple medical issues including atrial fibrillation, anticoagulati on, diabetes, coronary artery disease, pulmonary hypertension, delirium. The patient was admitted in itially on the medical side, status post fall. The patient was downgraded to TCU unit. Psych consul t was called for evaluation of depressive symptoms. The patient has episodes of delirium as well as anxiety symptoms. The patient was seen and examined today in the TCU unit. The patient presented to be alert and oriented in self, place as well as time. The patient was pleasant and cooperative, but at the same time, obviously patient has difficulty to concentrate, takes longer for response. The abhi baptiste also gave permission to speak to her son. The patient reported that she feels fine at present moment, but at the same time, patient reported to feel anxious about the fact that she fell. The judy huddleston also said that "I'm 76 years old and I should know better." What patient meant is patient's da [id number] asked patient to let her know when she will be ready with her shower, but patient did n ot let her know and fell in the shower. The patient reported at present moment, she is feeling not d epressed, but mildly anxious. Collateral information was obtained from the patient's son, Quincy, who seems to be supportive and sitting next to her. Mj said for the past couple of months, patient was not taking her medication as it was prescribed. Also, patient was not showing any interest to so cialize with others. The patient also was depressed and wanted to join her who long time ago. The patient also had difficulty to stay focused and to concentrate. Mj expressed hig hest concern about safety of his mother. The patient denied previous history of mental illness, constanza ed history of being depressed, denied history of suicidal attempts. The patient denied using drugs. The patient denied hearing voices, denied seeing things, denied paranoid ideation. The patient does not present to be psychotic. VITAL SIGNS: This auto service writer reviewed. Temperature 97.8, pulse is , blood pressure 103/64, respira tions 16, oxygen saturation is 98%. MEDICATIONS: Reviewed. The patient is on aspirin, Lipitor, Cardizem, Lasix, Amaryl, Humulin, Toprol and spironolactone. The patient also might benefit from a small dose of antidepressant. This write r educated patient and her son about risks, benefits and alternatives of Celexa. The patient was in agreement to take that medication. Of note, patient gave permission to speak to her son. LABORATORIES: Reviewed. Hematology: WBC cells 16.1. Chemistry also reviewed. Chloride 92, BUN 36 , bilirubin 1.4. The rest seems to be within normal limits. The most recent labs were from today. Collaterals were obtained from the nursing staff. The patient is participating in physical therapy, does not have any behavioral disturbances and delirium is clearing. MENTAL STATUS EXAMINATION: The patient presented to be alert, acceptable personal hygiene. The daylin ent has bruises under her left eye, status post fall. The patient has fair eye contact. Speech was normal rate, tone, quality, and quantity. Thought process was coherent and goal directed. Thought c ontent: The patient denied visual, auditory, tactile hallucinations. Denied paranoid ideation. The patient denied thoughts of harming herself or others, denied intent or plan. Thought process is wel l organized. Insight and judgment are fair. Impulses are well controlled. IMPRESSION: Rule out adjustment disorder, rule out generalized anxiety disorder, delirium is clearin g. The patient has multiple medical issues including status post fall. The patient has atrial fibri llation, diabetes, coronary artery disease, pulmonary hypertension, tricuspid regurgitation and delir ium. PLAN: This auto service writer offered patient Celexa. Risks, benefits and alternatives of the medication discus sed with the patient and son. The patient will be seen by this auto service writer tomorrow. Delirium is clearin g. The patient is having physical therapy and participating in that. Meanwhile, continue current ma nagnelson. We will follow up on this patient and discuss disposition plan. Thank you very much for letting me participate in care of your patient. Should you have any question s, give me a call back. Brea Morales MD cc: [id number] TT: 02/23/2017 14:17:24 Confirmation # [id number] Dictation # [id number] en
[2017-02-24] MEDS: Insulin Reg-LOW-Coverage SC SCH ×4 (06:30→22:00)
[2017-02-24] MEDS: Metoprolol Succinate 100 mg XL Tab PO SCH (08:39)
--- NOTE | 2017-02-24 09:49 | RAD ---
HISTORY: rule out pneumonia COMPARISON: 02/15/2017 FINDINGS: LUNGS: There is an infiltrate at the left lung base that obscures the diaphragm. PLEURA: No significant pleural effusion identified, no pneumothorax apparent. CARDIOVASCULAR: Mild to moderate cardiomegaly OSSEOUS STRUCTURES: No significant abnormalities. VISUALIZED UPPER ABDOMEN: Normal. OTHER FINDINGS: None. IMPRESSION: Left lower lobe infiltrate. No significant change
[2017-02-24 10:18] LABS: HEMATOCRIT 38.5 % (36.0-48.0); MEAN CELL VOLUME 85.7 fL (80.0-105.0); MEAN CORPUSCULAR HEMOGLOBIN 29.6 pg (25.0-35.0); MEAN CORPUSCULAR HGB CONC 34.5 g/dl (31.0-37.0); MEAN PLATELET VOLUME 9.3 fl (7.0-11.0); RED CELL DISTRIBUTION WIDTH 15.5 % (11.5-14.5); WHITE BLOOD COUNT 19.2 10^3/ul (4.5-11.0)
[2017-02-24 10:21] LABS: ALB/GLOB RATIO 0.8 (1.1-1.8); BILIRUBIN,TOTAL 1.5 mg/dL (0.2-1.3); POTASSIUM 5.1 mmol/L (3.6-5.0); TOTAL PROTEIN 6.9 g/dL (5.8-8.3)
--- NOTE | 2017-02-24 10:56 | PN ---
DATE: 02/24/2017 Shortly, the patient is a 76-year-old female. The patient was admitted on the medical floo r status post fall. Psych consult was called for evaluation of depressive symptoms. The patient was seen initially yesterday. The patient was found to be depressed. As per son, the patient was not i nterested to do her chores and also was self-isolating, was not socializing with others. The patient wants to join her , was not interested to do anything, difficulty to stay focused, d ifficulty to concentrate, and difficulty to function. This entry writer implemented Celexa yesterday. The patient was followed up today at the morning time. The patient appears to be sleepy, easily arousab le. The patient reported that she does not have any side effects from the medications, reported to t olerate them well. The patient reported that she still feels depressed and anxious and this entry writer d iscussed option to be transferred to the psychiatric inpatient unit after medical stabilization. The patient was willing to be transferred, but at the same time, asked this entry writer gave a call to her so n. This is what this entry writer did, had prolonged conversation with the son over the phone, Mj, at [phone] and discussed potential transfer for tomorrow. No objection over that plan as well as Mitali landis said that patient needs to feel better and concentrate more and depression and anxiety should b e under control. VITAL SIGNS: Reviewed. Temperature 98.0, pulse 78, blood pressure 125/72, respirations 18, oxygen s aturation is 98. MEDICATIONS: Reviewed. The patient is on aspirin, Lipitor, Celexa 10 mg daily, Cardizem 30 mg q.i.d ., Lasix, Amaryl, Humulin, metoprolol, Aldactone. LABORATORY DATA: Reviewed. Most recent was on 02/23. Chemistry also reviewed, most recent was on MENTAL STATUS EXAMINATION: The patient appears to be sleepy. Intermittent eye contact. Speech was underproductive. The patient has fine tremor in her upper extremities, appears to be anxious. Mood described as depressed and anxious. Affect was constricted, but at times reactive, mood congruent. Thought process was goal directed. Thought content: The patient denied visual, auditory, of tactile hallucinations. Denied paranoid ideation. The patient denied thoughts of harming herself or others . At the same time, patient expressed wish to join her family and , but denied at pr esent moment during the interview. Insight and judgement are improving. Impulses are well controlle d. IMPRESSION: Rule out major depressive disorder, rule out adjustment disorder, rule out generalized a nxiety disorder. PLAN: Continue current management. Continue current medications. Celexa was initiated yesterday 10 mg. Considering the fact that patient was not functioning well, self-isolative as well as expressed wish to be and join her family, most likely the patient needs to be transferred to the psychiatric inpatient unit for further evaluation and stabilization and medication initiation and ti tration. Discussed with the medical team as well as with the patient as well as with patient's son. Disposition will be made tomorrow. Most likely the patient needs to be transferred to the psychiatr ic inpatient unit. Should you have any questions, give me a call back. Brea Morales MD cc: [id number] TT: 02/24/2017 10:55:57 Confirmation # [id number] Dictation # [id number] tn
[2017-02-24 12:26] LABS: URINE BILIRUBIN NEGATIVE (NEGATIVE); URINE BLOOD MODERATE (NEGATIVE); URINE GLUCOSE (UA) 500 mg/dL (NEGATIVE); URINE KETONE NEGATIVE (NEGATIVE); URINE LEUKOCYTE ESTERASE SMALL Leu/uL (NEGATIVE); URINE PROTEIN TRACE mg/dL (<30 mg/dL)
[2017-02-24 12:30] LABS: URINE APPEARANCE SL CLOUDY (CLEAR); URINE COLOR YELLOW (YELLOW)
[2017-02-24 12:39] LABS: URINE BACTERIA MOD (NEG); URINE RBC 0 - 2 /hpf (0-2); URINE WBC TNTC /hpf (0-6)
--- NOTE | 2017-02-24 20:50 | DS ---
SUBJECTIVE: The patient has no complaints of any chest pain or shortness of breath and no headaches. She initially came to the hospital because of a fall. She has atrial fibrillation and Coumadin kuo s been placed on hold. She also had an episode of delirium in the hospital. She has improved. She has no complaints of any headaches or dizziness. She was seen by psychiatry for confusion and deliri um. She is to be discharged home. PHYSICAL EXAMINATION: VITAL SIGNS: Temperature is 98, pulse of 53, blood pressure is 101/51 and respirations 18. Repeat pu lse is 78. GENERAL: Patient lying in bed, flat, and in no apparent distress. HEAD AND NECK EXAM: Atraumatic, normocephalic. Conjunctivae are pink. Throat clear and mouth with moist mucosa. Oropharynx benign. EYES: Extraocular movements are intact. PERRLA. NECK: Supple. No JVD, thyromegaly, or adenopathy. No bruits. HEART: S1 and S2 regular rate and rhythm. No murmurs, rubs, or gallops. LUNGS: Clear to auscultation bilaterally. No wheezing rales or rhonchi appreciated. No retraction s on exam. ABDOMEN: Soft, nontender, nondistended. Bowel sounds are positive in all quadrants. No rebound. No hepatosplenomegaly. EXTREMITIES: No cyanosis, clubbing, or edema. NEURO: No facial asymmetry, tongue is midline, no uvula deviation. Power is 5/5 in upper extremity and 5/5 in lower extremity. Sensation is normal in upper extremity and lower extremity. PSYCH: Awake, alert, oriented x3. No anxiety or depression symptoms. Good insight. Normal affec t. : No CVA tenderness VASCULAR: 2+ pulses in carotid and pedal pulses. SKIN: No erythema or abnormal nodules noted. SPINE: Normal curvature. LYMPHADENOPATHY: No anterior cervical or posterior cervical adenopathy. No inguinal adenopathy. ASSESSMENT: 1. Leukocytosis. 2. Fall. 3. Atrial fibrillation. 4. Diabetes type 2. 5. Coronary artery disease. 6. Pulmonary hypertension. 7. Tricuspid regurgitation. 8. Delirium. 9. Diabetes type 2. PLAN: The patient had an elevated white count. She had urine cultures on admission which were negat aniceto. She is on Aldactone and this will be continued. She is on Cardizem. This will continue as wel l. She is on Lipitor for dyslipidemia. She is on metoprolol. She is on a heart healthy diet. I wi ll get repeat blood work and also get an evaluation by infectious disease. Ben James MD cc: [id number] TT: 02/24/2017 20:49:23 sn
--- NOTE | 2017-02-25 15:06 | PN ---
DATE: 02/25/2017 FOLLOWUP NOTE The patient was followed up today. As per nursing staff, the patient was confused overnight, did no t know where she was. Today, the patient was alert and oriented, remembered this scenario writer. The patien t reported that her mood is improving. The patient denied thoughts of harming herself or others, den ied intent or plan. Anxiety - the patient reported that it is under control. MEDICATIONS: Reviewed. VITAL SIGNS: Stable. The patient participated in physical therapy. LABORATORY DATA: Labs cannot be assessed because [place] is down. The patient was started on Celexa 20 mg daily for depression and anxiety. MENTAL STATUS EXAMINATION: The patient appears to be sleepy, but easily arousable, pleasant, and operations manager/coordinator perative. Fair eye contact. Speech was underproductive, low volume. Mood described "I feel better. " Affect was constricted, but reactive, mood congruent. Thought process was coherent and goal direc ga. Thought content: The patient denied visual, auditory, or tactile hallucinations, but the patie nt had confusion over nighttime, which would be related to the medical issues, as well as the patient is old, and the patient is in a new setting in the hospital. Insight and judgment are improving. I mpulses are well controlled. IMPRESSION: Rule out major depressive disorder, rule out adjustment disorder with depressed and anxi ous mood. Rule out mood disorder and anxiety disorder due to general medical condition. PLAN: Initially, this scenario writer thought that the patient needed to go to the psychiatric inpatient admi ssi because the patient had passive wish to be , as well as was not functioning well. Right no w, the patient has extension in transitional care unit. At present moment, we will follow up on the patient on a daily basis and see how the patient is improving. Meanwhile, continue current managemen t. Continue current medications. We will follow up and advise accordingly. Discussed with nursing staff. The patient's son is involved in the patient's care. I spoke to him yesterday. We will foll ow up and advise accordingly. Brea Morales MD cc: [id number] TT: 02/25/2017 14:23:46 Confirmation # [id number] Dictation # [id number] jn
--- NOTE | 2017-02-25 15:42 | CON ---
DATE: 02/25/2017 LOCATION: 319, bed 1. The patient was seen much earlier this morning. REASON FOR CONSULTATION: Worsening leukocytosis. HISTORY OF PRESENT ILLNESS: We have a 76-year-old female with past medical history of hypertension, coming in because of a fall at home. The patient did injure and develop a hematoma around her left e ye, but denies loss of consciousness. No convulsions. No bladder or urinary incontinence. The daylin ent did well while in the acute care portion of [facility] and has been [facility] further medical management and physical rehabilitation. While being at [facility] , patient has been noted to have increasing and worsening leukocytosis and infectious disease consult is requested to further evaluate and manage this. On further questioning of the patient, the patien t denies currently fever or chills, no nausea, no vomiting, currently no headache or dizziness, no bl urring of vision currently, no dysphagia, no odynophagia, no sore throat, no cough, no rhinorrhea, no chest pain, no abdominal pain, no diarrhea, no dysuria, no hematuria. REVIEW OF SYSTEMS: As per history of present illness. PAST MEDICAL HISTORY: As per history of present illness. FAMILY HISTORY: Noncontributory. PERSONAL AND SOCIAL HISTORY: No smoking, no alcohol abuse, no illicit drug use. The patient has not had any travel outside of [place] in the past 3 months. ALLERGIES: No known drug allergies for the patient. PHYSICAL EXAMINATION: VITAL SIGNS: The patient is currently afebrile at 97.9 degrees Fahrenheit, respiratory rate of 20, h eart rate of 76. HEENT: Normocephalic, atraumatic except for the healing and improving hematoma around the left eye. No cervical lymphadenopathy. No meningismus present. CHEST: Decreased breath sounds bilaterally. HEART: S1 and S2 are normal. ABDOMEN: Soft, nontender, nondistended. LABORATORY DATA: For today's labs we are unable to review, but yesterday's labs included a WBC count of 16.1, platelets of 319,000, BUN of 36, creatinine of 1.1 and a GFR of 48. The chest x-ray done yesterday showed possible lower lobe infiltrate. ASSESSMENT: We have a 76-year-old female with a past medical history of hypertension, coming in due to a fall, is now presenting with systemic inflammatory response syndrome, we should consider sepsis due to healthcare-associated pneumonia, and the patient presenting with acute renal failure. PLAN: We have started the patient on cefepime and doxycycline pending blood culture, sputum cultures , urine cultures, procalcitonin. We have reviewed the chest x-ray and we had mentioned it previously on this dictation note. We will continue to monitor this patient clinically, trend her WBC count, a nd see her clinical response. Raul Rodas M.D. cc: [id number] TT: 02/25/2017 15:42:11 Confirmation # [id number] Dictation # [id number] mn
[2017-02-25] MEDS ORDERED: Cefepime 1gm in NS 100ml 1 GM/100 ML BAG IVPB SCH (21:00)
[2017-02-25 21:08] LABS: ADD MANUAL DIFF? NO
[2017-02-25] MEDS: Insulin Reg-LOW-Coverage SC SCH (21:25)
[2017-02-26] MEDS: Insulin Reg-LOW-Coverage SC SCH ×4 (07:12→21:56)
[2017-02-26] MEDS: Metoprolol Succinate 100 mg XL Tab PO SCH (08:05)
--- NOTE | 2017-02-26 08:17 | PN ---
DATE: 02/26/2017 SUBJECTIVE: The patient has no complaints of any chest pain, no shortness of breath, no headaches. She does have episodes of confusion. PHYSICAL EXAMINATION: VITAL SIGNS: Temperature is 98, pulse of 59, blood pressure is 103/60, respirations is 15. GENERAL: The patient comfortable, in no acute distress. HEENT: Anicteric sclerae. Moist mucosa. NECK: No JVD or adenopathy. CARDIAC: S1/S2. No murmurs. No rubs. Regular. RESPIRATORY: Clear to auscultation bilaterally. No wheezes, rales, or rhonchi. Good air entry. ABDOMEN: Bowel sounds are positive, soft, nontender, and nondistended. EXTREMITIES: No edema. Has 1+ pulses. LABORATORIES: Last white count shows it was 19.2. ASSESSMENT: 1. Hospital-acquired pneumonia. 2. Sepsis. 3. Delirium. 4. Hyponatremia. 5. Atrial fibrillation. 6. Coronary artery disease. 7. Pulmonary hypertension. 8. Tricuspid regurgitation. 9. Diabetes type 2. 10. Fall. PLAN: The patient is currently on Aldactone. Repeat blood work has been ordered. The patient is on Cardizem, is going to continue with doxycycline for antibiotics, is on Lasix twice a day. We will h old Lasix. The patient is on Lipitor for dyslipidemia, is on metoprolol, is on a heart healthy diet. She is on a 1:1. She is being followed by psychiatry. Ben James MD cc: [id number] TT: 02/26/2017 07:44:31 Confirmation # [id number] Dictation # [id number] en
--- NOTE | 2017-02-26 11:21 | PN ---
DATE: 02/26/2017 Shortly, the patient is a 76-year-old female with not known previous psychiatric history. The patient was admitted on the medical floor status post fall. The patient is currently on TCU. [facility] consult was initiated, rule out major depressive disorder. The patient was started on Celexa. T he patient tolerated that well. The patient has episodes of confusion. Majority of the time this is at the nighttime. Also at the morning time, patient did not know how to wash her hands. The patien t also was disoriented in year; now she thinks it is 2014. The patient also referred to her son as lupe er son-in-law. VITAL SIGNS: Seem to be stable. Pulse 68, blood pressure 108/74. MEDICATIONS: Reviewed. Aspirin, Lipitor, cefepime. Celexa was started by this writer technical publications 10 mg daily s cheduled; we could increase that to 20 mg daily. The patient is on Cardizem, doxycycline, Lasix, [place] ryl, Humulin, ____ as well as Aldactone. LABORATORY DATA: Reviewed. Most recent was from 02/24/2017. MENTAL STATUS EXAMINATION: The patient presented to be alert, at times confused, did not know what i s the year. Speech was underproductive, but normal rate, tone, quality, and quantity. Mood describe d, "I feel fine." Affect was reactive, mood congruent. At times, the patient confabulates. Thought process seems to be goal directed, at times confabulates which this writer technical publications mentioned earlier. Thg content: The patient denied visual, auditory or tactile hallucinations, denied paranoid ideations . The patient does not appear to be psychotic. The patient denied thoughts of harming herself or ot hers, denied intent or plan. As per family, the patient's son expressed his concern that the patient wanted to be with her family and wished to be . The patient denied intent or plan to kill herse lf. The patient also has episodes of confusion. IMPRESSION: Most likely patient has combination of the factors for early dementia plus delirium as w ell as depressive symptoms. Please see medical team notes for more detailed information in regards o f medical issues. PLAN: Continue current management. This writer technical publications implemented Celexa. The patient tolerated that well . Will increase that to 20 mg daily for depression as well as anxiety. The patient was offered to polo carranza to psychiatric inpatient unit, but at this time this writer technical publications would prefer patient to stay on the TCU unit in order to gain her strength back and have physical therapy and become stronger. Will follow up and advise accordingly. If we need to, we will transfer patient to the psychiatric inpatient unit . But as of now, the patient needs to have physical therapy and medication management on the TCU uni t more. Thank you very much for letting me participate in the care of your patient. Will follow up and advis e accordingly. Brea Morales MD cc: [id number] TT: 02/26/2017 11:20:54 Confirmation # [id number] Dictation # [id number] mn
[2017-02-26 13:09] LABS: BASO # 0.03 K/mm3 (0.0-2.0); BASO % 0.2 % (0.0-3.0); EOS # 0.1 (0.0-0.7); EOS % 0.3 % (1.5-5.0); GRAN # 14.27 (1.4-6.5); GRAN % 89.4 % (50.0-68.0); HEMATOCRIT 37.7 % (36.0-48.0); LYMPH # 0.8 (1.2-3.4); LYMPH % 4.9 % (22.0-35.0); MEAN CELL VOLUME 86.5 fL (80.0-105.0); MEAN CORPUSCULAR HEMOGLOBIN 29.1 pg (25.0-35.0); MEAN CORPUSCULAR HGB CONC 33.7 g/dl (31.0-37.0); MONO # 0.8 (0.1-0.6); MONO % 5.2 % (1.0-6.0); PLATELET COUNT 369 10^3/uL (120.0-450.0); RED CELL DISTRIBUTION WIDTH 15.7 % (11.5-14.5)
--- NOTE | 2017-02-26 20:39 | CON ---
DATE: 02/26/2017 CHIEF COMPLAINT: Status post fall, near syncope. HISTORY OF PRESENT ILLNESS: This is an 76-year-old woman with a past medical history of type 2 diabe nadeen mellitus, Afib who was initially on Pradaxa; coronary artery disease, dyslipidemia, pulmonary hyp ertension, which is severe, who came in status post fall. She was managed on the medical floor and o [facility] for rehabilitation. She has also anxiety and depression, which her medications have been inte rvened with by psychiatry. She has type 2 diabetes mellitus and has peripheral neuropathy and had ep isodes of transient cerebral hypoperfusion to the brain with drop in blood pressures during her hospi catia course, which was addressed. PAST MEDICAL HISTORY: AFib, type 2 diabetes mellitus, coronary artery disease, dyslipidemia, pulmona ry hypertension, tricuspid regurgitation, moderate pulmonary hypertension, severe and transaminitis. ALLERGIES: IODINE AND CONTRAST MEDIA. HOME MEDICATIONS: Reviewed via nurses' reconciliation sheet. SOCIAL HISTORY: No illicit drug use, smoking, or ETOH abuse. PHYSICAL EXAMINATION: VITAL SIGNS: Temperature of 98, pulse rate 61, blood pressure 109/72, respiratory rate of 18, oxygen saturation 97% on room air. GENERAL: The patient is sitting up in bed in no acute distress. HEENT: Atraumatic, normocephalic. PERRLA. Extraocular muscles intact. NECK: Supple, no JVD, no adenopathy noted. LUNGS: Clear to auscultation. No adventitious sounds. HEART: S1, S2, normal rate and rhythm. No murmurs, rubs, or gallops. ABDOMEN: Soft, nontender, nondistended. Bowel sounds present. EXTREMITIES: No clubbing, no cyanosis. Peripheral pulses 2+ felt bilaterally. NEUROLOGIC: The patient is alert, oriented to person, place, month and year. Recall at 5 minutes is 0/3. Poor attention span, slow thought process. Cranial nerves II through XII are intact. MOTOR: Slight increased tone throughout. Moves all extremities equally. No pronator drift seen. SENSORY: Decreased light touch and pinprick up to calves bilaterally. DTRs are 1+ and 0 at th e ankles. COORDINATION: [id number] intact. GAIT: Deferred for now. LABORATORY DATA: Blood sugar is 321. ASSESSMENT AND PLAN: This is a 76-year-old woman with history of type 2 diabetes mellitus, atrial fi brillation, who was initially on Pradaxa; coronary artery disease, dyslipidemia, pulmonary hypertensi on, severe and tricuspid regurgitation, who came in for multiple falls and lightheadedness. Had a me chanical fall. Had a transient drop in blood sugar to 57 during her hospital. Found to have transie nt drop in her blood pressures with transient cerebral hypoperfusion to the brain. At this time, she was hydrated and electrolytes were corrected and CAT scan showed no acute intracranial abnormality. Currently, her multiple falls are secondary to underlying deconditioned state superimposed on underl caren peripheral neuropathy as well as transient cerebral hypoperfusion to the brain from drop in bloo d pressures. At this time, she will be in the [facility] undergoing physical and occupational therapy and to follow up with cardiology in regards to her severe pulmonary hypertension and AFib. She needs yasmin betic education, needs to keep her blood sugars between 140 to 180 and continue with aspirin and stat in for stroke prevention. At this time, continue with current present management. Thank you for this consult. Will sign off. Charlie Baxter MD cc: [id number] TT: 02/26/2017 20:39:10 Confirmation # [id number] Dictation # [id number] [email or web address]
--- NOTE | 2017-02-26 22:45 | CP.PCM.PN ---
Subjective - Date & Time of Evaluation Date of Evaluation: 02/26/17 Time of Evaluation: 11:50 - Subjective Subjective: Comfortable, no cough, no fever, not in distress. Objective - Vital Signs/Intake and Output Vital Signs (last 24 hours): Temp Pulse Resp BP Pulse Ox 98 F 61 18 100/60 97 02/26/17 16:00 02/26/17 17:18 02/26/17 16:00 02/26/17 21:54 02/26/17 16:00 - Medications Medications: Current Medications Aspirin (Ecotrin) 81 mg PO 0800 [facility] PRN Reason: Protocol Last Admin: 02/26/17 08:04 Dose: 81 mg Atorvastatin Calcium (Lipitor) 20 mg PO DIN [facility] PRN Reason: Protocol Last Admin: 02/26/17 17:17 Dose: 20 mg Citalopram Hydrobromide (Celexa) 10 mg PO DAILY [facility] Last Admin: 02/26/17 10:26 Dose: 10 mg Diltiazem HCl (Cardizem) 30 mg PO QID [facility] PRN Reason: Protocol Last Admin: 02/26/17 21:54 Dose: Not Given Doxycycline Hyclate (Doryx) 100 mg PO BID [facility] Stop: 03/03/17 20:18 Last Admin: 02/26/17 17:19 Dose: 100 mg Furosemide (Lasix) 40 mg PO 0600,1400 [facility] Last Admin: 02/26/17 05:49 Dose: Not Given Glimepiride (Amaryl) 4 mg PO 0800,1800 [facility] PRN Reason: Protocol Last Admin: 02/26/17 17:19 Dose: 4 mg Cefepime HCl (Maxipime 1gm) 1 gm in 100 mls @ 100 mls/hr IVPB 0600 [facility] Stop: 03/03/17 06:00 Insulin Human Regular (Humulin R Low) 0 units SC ACHS [facility] PRN Reason: Protocol Last Admin: 02/26/17 21:56 Dose: 4 units Metoprolol Succinate (Toprol Xl) 100 mg PO 0800 [facility] PRN Reason: Protocol Last Admin: 02/26/17 08:05 Dose: 100 mg Spironolactone (Aldactone) 25 mg PO BID [facility] PRN Reason: Protocol Last Admin: 02/26/17 17:19 Dose: 25 mg - Labs Labs: 02/25/17 07:00 02/24/17 09:20 - Constitutional Appears: Non-toxic, No Acute Distress - Head Exam Additional comments: left eye hematoma improving - ENT Exam ENT Exam: Mucous Membranes Moist - Neck Exam Neck Exam: absent: Lymphadenopathy, Meningismus - Respiratory Exam Respiratory Exam: Decreased Breath Sounds - Cardiovascular Exam Cardiovascular Exam: +S1, +S2 - GI/Abdominal Exam GI & Abdominal Exam: Soft. absent: Tenderness Assessment and Plan - Assessment and Plan (Free Text) Plan: Assessment consider sepsis due to left lower lobe healthcare-associated pneumonia Nausea with elevated Alk phos and bilirubin, R/O biliary tract disease history of cholecystitis CAD S/P PCI with chronic CHF atrial fibrillation on anticoagulation severe pulmonary HTN DM Plan continue Doxycycline and Cefepime day 2 to complete a 4-7 day course
[2017-02-27] MEDS: Cefepime 1gm in NS 100ml 1 GM/100 ML BAG IVPB SCH (06:14)
[2017-02-27] MEDS: Metoprolol Succinate 100 mg XL Tab PO SCH (08:27)
[2017-02-27 08:59] LABS: HEMATOCRIT 38.1 % (36.0-48.0); MEAN CORPUSCULAR HEMOGLOBIN 29.3 pg (25.0-35.0); MEAN CORPUSCULAR HGB CONC 34.1 g/dl (31.0-37.0); MEAN PLATELET VOLUME 8.9 fl (7.0-11.0); RED CELL DISTRIBUTION WIDTH 15.7 % (11.5-14.5); WHITE BLOOD COUNT 17.9 10^3/ul (4.5-11.0)
[2017-02-27 09:30] LABS: ALB/GLOB RATIO 0.9 (1.1-1.8); BILIRUBIN,TOTAL 1.2 mg/dL (0.2-1.3); POTASSIUM 4.2 mmol/L (3.6-5.0); TOTAL PROTEIN 7.1 g/dL (5.8-8.3)
--- NOTE | 2017-02-27 12:11 | CP.PCM.PN ---
Subjective - Date & Time of Evaluation Date of Evaluation: 02/27/17 Time of Evaluation: 11:25 - Subjective Subjective: Comfortable, afebrile, no nausea, no diarrhea, no abdominal pain, breathing well. Objective - Vital Signs/Intake and Output Vital Signs (last 24 hours): Temp Pulse Resp BP Pulse Ox 98 F 72 18 95/63 L 97 02/26/17 16:00 02/27/17 10:26 02/26/17 16:00 02/27/17 10:26 02/26/17 16:00 - Medications Medications: Current Medications Aspirin (Ecotrin) 81 mg PO 0800 [facility] PRN Reason: Protocol Last Admin: 02/27/17 08:26 Dose: 81 mg Atorvastatin Calcium (Lipitor) 20 mg PO DIN [facility] PRN Reason: Protocol Last Admin: 02/26/17 17:17 Dose: 20 mg Citalopram Hydrobromide (Celexa) 10 mg PO DAILY [facility] Last Admin: 02/27/17 10:27 Dose: 10 mg Diltiazem HCl (Cardizem) 30 mg PO QID [facility] PRN Reason: Protocol Last Admin: 02/27/17 10:26 Dose: Not Given Doxycycline Hyclate (Doryx) 100 mg PO BID [facility] Stop: 03/03/17 20:18 Last Admin: 02/27/17 10:27 Dose: 100 mg Furosemide (Lasix) 40 mg PO 0600,1400 [facility] Last Admin: 02/26/17 05:49 Dose: Not Given Glimepiride (Amaryl) 4 mg PO 0800,1800 [facility] PRN Reason: Protocol Last Admin: 02/27/17 08:25 Dose: 4 mg Cefepime HCl (Maxipime 1gm) 1 gm in 100 mls @ 100 mls/hr IVPB 0600 [facility] Stop: 03/03/17 06:00 Last Admin: 02/27/17 06:14 Dose: 100 mls/hr Insulin Human Regular (Humulin R Low) 0 units SC ACHS [facility] PRN Reason: Protocol Last Admin: 02/26/17 21:56 Dose: 4 units Metoprolol Succinate (Toprol Xl) 100 mg PO 0800 [facility] PRN Reason: Protocol Last Admin: 02/27/17 08:27 Dose: 100 mg Spironolactone (Aldactone) 25 mg PO BID [facility] PRN Reason: Protocol Last Admin: 02/27/17 10:24 Dose: 25 mg - Labs Labs: 02/27/17 08:43 02/27/17 08:43 - Constitutional Appears: Non-toxic, No Acute Distress - Head Exam Head Exam: NORMAL INSPECTION - ENT Exam ENT Exam: Mucous Membranes Moist - Neck Exam Neck Exam: absent: Lymphadenopathy, Meningismus - Respiratory Exam Respiratory Exam: Decreased Breath Sounds - Cardiovascular Exam Cardiovascular Exam: +S1, +S2 - GI/Abdominal Exam GI & Abdominal Exam: Soft. absent: Tenderness Assessment and Plan - Assessment and Plan (Free Text) Plan: Assessment consider sepsis due to left lower lobe healthcare-associated pneumonia, slowly improving Nausea with elevated Alk phos and bilirubin, R/O biliary tract disease history of cholecystitis CAD S/P PCI with chronic CHF atrial fibrillation on anticoagulation severe pulmonary HTN DM Plan continue Doxycycline and Cefepime day 3 to complete a 4-7 day course; continue to trend WBC count; PCT is elevated at 0.63
[2017-02-27] MEDS: Insulin Reg-LOW-Coverage SC SCH ×3 (12:30→21:56)
--- NOTE | 2017-02-27 18:48 | PN ---
DATE: 02/27/2017 SUBJECTIVE: The patient has no complaints of any chest pain, no shortness of breath, no headaches or dizziness. PHYSICAL EXAMINATION: VITAL SIGNS: Temperature 98, pulse rate is 59, blood pressure 120/77, respirations are 18. GENERAL: The patient comfortable, in no acute distress. HEENT: Anicteric sclerae. Moist mucosa. NECK: No JVD or adenopathy. CARDIAC: S1/S2. No murmurs. No rubs. Regular. RESPIRATORY: Clear to auscultation bilaterally. No wheezes, rales, or rhonchi. Good air entry. ABDOMEN: Bowel sounds are positive, soft, nontender, and nondistended. EXTREMITIES: No edema. Has 1+ pulses. LABS: White count of 17.9, hemoglobin is 13, creatinine 1.1, sodium 130. ASSESSMENT: 1. Leukocytosis. 2. Hospital-acquired pneumonia. 3. Sepsis. 4. Delirium. 5. Hyponatremia. 6. Atrial fibrillation. 7. Pulmonary hypertension. 8. Tricuspid regurgitation. 9. Diabetes type 2. 10. Fall. PLAN: The patient is currently comfortable. The patient is on the transitional care unit. She is o n doxycycline for antibiotics. She is going to be on Celexa. She is on diltiazem for her atrial fib rillation. She is on Amaryl for her diabetes. She is on Aldactone. She is receiving Lasix twice a day. That has been placed on hold. Her white count remains elevated. [facility] Her blood cultures have been negative. Ben James MD cc: [id number] TT: 02/27/2017 18:47:49 Confirmation # [id number] Dictation # [id number] [id number]
[2017-02-28] MEDS: Insulin Reg-LOW-Coverage SC SCH ×5 (05:36→21:44)
[2017-02-28] MEDS: Cefepime 1gm in NS 100ml 1 GM/100 ML BAG IVPB SCH (05:36)
[2017-02-28] MEDS: Metoprolol Succinate 100 mg XL Tab PO SCH (08:41)
--- NOTE | 2017-02-28 19:14 | CP.PCM.PN ---
Subjective - Date & Time of Evaluation Date of Evaluation: 02/28/17 Time of Evaluation: 13:15 - Subjective Subjective: Comfortable on a chair, afebrile, not in distress. Objective - Vital Signs/Intake and Output Vital Signs (last 24 hours): Temp Pulse Resp BP Pulse Ox 98 F 45 L 18 123/63 97 02/26/17 16:00 02/28/17 18:20 02/26/17 16:00 02/28/17 18:20 02/26/17 16:00 Intake and Output: 02/28/17 03/01/17 18:59 06:59 Intake Total 420 Balance 420 - Medications Medications: Current Medications Aspirin (Ecotrin) 81 mg PO 0800 [facility] PRN Reason: Protocol Last Admin: 02/28/17 08:40 Dose: 81 mg Atorvastatin Calcium (Lipitor) 20 mg PO DIN [facility] PRN Reason: Protocol Last Admin: 02/28/17 18:00 Dose: 20 mg Citalopram Hydrobromide (Celexa) 10 mg PO DAILY [facility] Last Admin: 02/28/17 11:08 Dose: 10 mg Diltiazem HCl (Cardizem) 30 mg PO QID [facility] PRN Reason: Protocol Last Admin: 02/28/17 18:20 Dose: Not Given Doxycycline Hyclate (Doryx) 100 mg PO BID [facility] Stop: 03/03/17 20:18 Last Admin: 02/28/17 18:20 Dose: 100 mg Furosemide (Lasix) 40 mg PO 0600,1400 [facility] Last Admin: 02/26/17 05:49 Dose: Not Given Glimepiride (Amaryl) 4 mg PO 0800,1800 [facility] PRN Reason: Protocol Last Admin: 02/28/17 18:19 Dose: 4 mg Cefepime HCl (Maxipime 1gm) 1 gm in 100 mls @ 100 mls/hr IVPB 0600 [facility] Stop: 03/03/17 06:00 Last Admin: 02/28/17 05:36 Dose: 100 mls/hr Insulin Human Regular (Humulin R Low) 0 units SC ACHS [facility] PRN Reason: Protocol Last Admin: 02/28/17 17:30 Dose: 4 units Metoprolol Succinate (Toprol Xl) 100 mg PO 0800 [facility] PRN Reason: Protocol Last Admin: 02/28/17 08:41 Dose: 100 mg Spironolactone (Aldactone) 25 mg PO BID [facility] PRN Reason: Protocol Last Admin: 02/28/17 18:19 Dose: 25 mg - Labs Labs: 02/27/17 08:43 02/27/17 08:43 - Constitutional Appears: Non-toxic, No Acute Distress - Head Exam Head Exam: NORMAL INSPECTION - Neck Exam Neck Exam: absent: Lymphadenopathy, Meningismus - Respiratory Exam Respiratory Exam: Decreased Breath Sounds - Cardiovascular Exam Cardiovascular Exam: +S1, +S2 - GI/Abdominal Exam GI & Abdominal Exam: Soft. absent: Tenderness Assessment and Plan - Assessment and Plan (Free Text) Plan: Assessment consider sepsis due to left lower lobe healthcare-associated pneumonia, clinically improving Nausea with elevated Alk phos and bilirubin, R/O biliary tract disease history of cholecystitis CAD S/P PCI with chronic CHF atrial fibrillation on anticoagulation severe pulmonary HTN DM Plan continue Doxycycline and Cefepime day 4 to complete a 4-7 day course; continue to trend WBC count; PCT is elevated at 0.63 - will check another one tomorrow
[2017-03-01] MEDS: Cefepime 1gm in NS 100ml 1 GM/100 ML BAG IVPB SCH (05:32)
[2017-03-01] MEDS: Insulin Reg-LOW-Coverage SC SCH ×4 (07:21→22:02)
--- NOTE | 2017-03-01 08:58 | CON ---
DATE: 02/27/2017 The patient is a 76-year-old female with no prior psychiatric history who is being followed by psychiatry due to reported symptoms of depression. The patient has been tolerating Celexa and ps ychiatrist was requested to follow up with patient over the weekend to monitor her symptoms and blanka ance to medication. The patient also has history of disorientation, likely secondary to early philip ia plus delirium. I reviewed Dr. Morales's notes. I saw the patient up on the unit and met with patient at bedside. The patient appears bright and this morning, she is well oriented. She is awar e that she is at [facility] and it is 02/2017. Her focus is fair and her responses are co nsistent. The patient reports that she sleeps ____ and her affect is generally bright and fairly mariposa ctive. Regarding medication, she is tolerating Celexa well. The patient reports ____. The patient does not seem to be in any discomfort and her responses are relevant to questioning and generally has shown some improvement. ____. The patient reports that she is hopeful. She does wish that she was home. Denies any hallucinations and does not appear to be responding to internal stimuli. Delusion s were not elicited during this interview and her insight and judgment appear to be improving. VITAL SIGNS AND LABORATORY DATA: Reviewed. RELEVANT PSYCHIATRIC MEDICATIONS: Include Celexa 10 mg daily. IMPRESSION: The patient is suffering improving delirium, perhaps in the context of early dementia as well as depressive symptoms. I reviewed Dr. Morales's notes which indicate Celexa should be inc reased to 20 mg; however, it is still at 10 mg. We will continue 10 mg as patient reports improvemen t at this dose. Dr. Morales's notes indicate the patient defers on psychiatric inpatient transfe r and she continues to defer today. Psychiatry will continue to follow up with patient every 2 days and monitor her status and to determine whether she changes her mind about her disposition, but as of now, there is no acute indication for screening process if she should be medically cleared. Please contact psychiatry if a more immediate psychiatric followup is warranted earlier than 2 days' time. Maritza Chandler MD cc: [id number] TT: 02/27/2017 11:10:00 Confirmation # [id number] Dictation # [id number] tn
[2017-03-01] MEDS: Metoprolol Succinate 100 mg XL Tab PO SCH (09:00)
--- NOTE | 2017-03-01 16:28 | PN ---
DATE: 03/01/2017 The patient was followed up today. The patient presented in good spirit. The patient was observed w orking with physical therapy. The patient seems to be enjoying that. The patient reported that her depressive symptoms are a little bit better. At the same time, patient said that she is concerned ab out her finances. The patient denied thoughts of killing herself or others. As per nursing staff re port, patient has episodes of confusion, but much better. VITAL SIGNS: Reviewed. Pulse is ____, blood pressure 103/65. MEDICATIONS: Reviewed. The patient is on aspirin, Lipitor, cefepime. The patient is on Celexa 10 m g daily, Cardizem, doxycycline, Lasix, Amaryl, insulin, ____, Aldactone. LABORATORY DATA: Reviewed. The patient still has leukocytosis, 17.9. Urinary tract infection. Uri ne showed some infection on 17, but most likely it was contamination. Notes from Dr. James as well as Dr. Rodas reviewed. The patient is on cefepime day 4, complete a 7-day course. MENTAL STATUS EXAMINATION: As this service writer advisor described above, patient seems to be in good spirits. Frank r eye contact. Speech was normal rate, tone, quality, and quantity. Thought process seems to be goa l directed. Mood described, "There is a lot of things what bothers me. I am worried about my financ es." Thought content: The patient denied visual, auditory, or tactile hallucinations. Denied paran oid ideation. The patient denied thoughts of harming herself or others, denied intent or plan. IMPRESSION: Rule out adjustment disorder. Rule out major depressive disorder. The patient has mult iple medical issues including leukocytosis, hospital-acquired pneumonia, sepsis, delirium, hyponatrem ia, atrial fibrillation, pulmonary hypertension, diabetes, and status post fall. PLAN: Continue current management. We will follow up on this patient every other day. At present m ometye, patient does not meet the criteria for psychiatric inpatient unit. Should you have any questi ons, give me a call back. Brea Morales MD cc: [phone] TT: 03/01/2017 16:28:18 Confirmation # [id number] Dictation # [id number]
--- NOTE | 2017-03-01 16:29 | CP.PCM.PN ---
Subjective - Date & Time of Evaluation Date of Evaluation: 03/01/17 Time of Evaluation: 12:00 - Subjective Subjective: Patient is doing well with her rehab, not in distress, no fevers. Objective - Vital Signs/Intake and Output Vital Signs (last 24 hours): Temp Pulse Resp BP Pulse Ox 98 F 56 L 18 103/65 97 02/26/17 16:00 03/01/17 13:57 02/26/17 16:00 03/01/17 13:57 02/26/17 16:00 - Medications Medications: Current Medications Aspirin (Ecotrin) 81 mg PO 0800 [facility] PRN Reason: Protocol Last Admin: 03/01/17 09:02 Dose: 81 mg Atorvastatin Calcium (Lipitor) 20 mg PO DIN [facility] PRN Reason: Protocol Last Admin: 02/28/17 18:00 Dose: 20 mg Citalopram Hydrobromide (Celexa) 10 mg PO DAILY [facility] Last Admin: 03/01/17 09:00 Dose: 10 mg Diltiazem HCl (Cardizem) 30 mg PO QID [facility] PRN Reason: Protocol Last Admin: 03/01/17 13:57 Dose: 30 mg Doxycycline Hyclate (Doryx) 100 mg PO BID [facility] Stop: 03/03/17 20:18 Last Admin: 03/01/17 09:00 Dose: 100 mg Furosemide (Lasix) 40 mg PO 0600,1400 [facility] Last Admin: 03/01/17 13:57 Dose: 40 mg Glimepiride (Amaryl) 4 mg PO 0800,1800 [facility] PRN Reason: Protocol Last Admin: 03/01/17 09:03 Dose: 4 mg Cefepime HCl (Maxipime 1gm) 1 gm in 100 mls @ 100 mls/hr IVPB 0600 [facility] Stop: 03/03/17 06:00 Last Admin: 03/01/17 05:32 Dose: 100 mls/hr Insulin Human Regular (Humulin R Low) 0 units SC ACHS [facility] PRN Reason: Protocol Last Admin: 03/01/17 11:47 Dose: 2 units Metoprolol Succinate (Toprol Xl) 100 mg PO 0800 [facility] PRN Reason: Protocol Last Admin: 03/01/17 09:00 Dose: 100 mg Spironolactone (Aldactone) 25 mg PO BID [facility] PRN Reason: Protocol Last Admin: 03/01/17 09:01 Dose: 25 mg - Labs Labs: 02/27/17 08:43 02/27/17 08:43 - Constitutional Appears: Non-toxic, No Acute Distress - Head Exam Head Exam: NORMAL INSPECTION - ENT Exam ENT Exam: Mucous Membranes Moist - Neck Exam Neck Exam: absent: Lymphadenopathy, Meningismus - Respiratory Exam Respiratory Exam: Decreased Breath Sounds - Cardiovascular Exam Cardiovascular Exam: +S1, +S2 - GI/Abdominal Exam GI & Abdominal Exam: absent: Tenderness Assessment and Plan - Assessment and Plan (Free Text) Plan: Assessment consider sepsis due to left lower lobe healthcare-associated pneumonia, clinically improving Nausea with elevated Alk phos and bilirubin, R/O biliary tract disease history of cholecystitis CAD S/P PCI with chronic CHF atrial fibrillation on anticoagulation severe pulmonary HTN DM Plan continue Doxycycline and Cefepime day 5 to complete a 4-7 day course; continue to trend WBC count; PCT is elevated at 0.63 - will check another one today
[2017-03-02 03:10] LABS: ALB/GLOB RATIO 0.8 (1.1-1.8); BILIRUBIN,TOTAL 1.4 mg/dL (0.2-1.3); CALCIUM 8.9 mg/dL (8.4-10.5); POTASSIUM 4.1 mmol/L (3.6-5.0); TOTAL PROTEIN 6.9 g/dL (5.8-8.3)
[2017-03-02] MEDS: Cefepime 1gm in NS 100ml 1 GM/100 ML BAG IVPB SCH (05:49)
[2017-03-02] MEDS: Insulin Reg-LOW-Coverage SC SCH ×2 (06:44→13:02)
--- NOTE | 2017-03-02 07:32 | PN ---
DATE: 03/02/2017 SUBJECTIVE: The patient has no complaints of any chest pain, no shortness of breath, no headaches, no dizziness. VITAL SIGNS: Temperature is 98.2, pulse is 58, blood pressure is 102/59, respirations 20, O2 saturation 97%. GENERAL: The patient comfortable, in no acute distress. HEENT: Anicteric sclerae. Moist mucosa. NECK: No JVD or adenopathy. CARDIAC: S1/S2. No murmurs. No rubs. Regular. RESPIRATORY: Clear to auscultation bilaterally. No wheezes, rales, or rhonchi. Good air entry. ABDOMEN: Bowel sounds are positive, soft, nontender, and nondistended. EXTREMITIES: No edema. Has 1+ pulses. ASSESSMENT: 1. Healthcare-associated pneumonia. 2. Sepsis. 3. Delirium. 4. Hyponatremia 5. Atrial fibrillation. 6. Pulmonary hypertension. 7. Tricuspid regurgitation. 8. Diabetes type 2. 9. Fall. PLAN: The patient is comfortable, is on Aldactone. The patient is going to continue on Amaryl for her diabetes. She is on Celexa for her anxiety. She is receiving Lasix daily. She is on Lipitor for dyslipidemia. She is on cefepime for antibiotics. She has blood work that is pending this morning. Ben James MD cc: [id number] TT: 03/02/2017 07:31:58 Confirmation # [id number] Dictation # [id number]
[2017-03-02 07:56] LABS: HEMATOCRIT 38.2 % (36.0-48.0); MEAN CELL VOLUME 85.8 fL (80.0-105.0); MEAN CORPUSCULAR HEMOGLOBIN 29.4 pg (25.0-35.0); MEAN CORPUSCULAR HGB CONC 34.3 g/dl (31.0-37.0); MEAN PLATELET VOLUME 8.6 fl (7.0-11.0); RED CELL DISTRIBUTION WIDTH 15.8 % (11.5-14.5); WHITE BLOOD COUNT 14.2 10^3/ul (4.5-11.0)
[2017-03-02] MEDS: Metoprolol Succinate 100 mg XL Tab PO SCH (08:40)
[2017-03-02 11:09] VITALS: PULSE 65
[2017-03-02 11:11] VITALS: RESP 16; TEMP 97.3; O2SAT 99
[2017-03-02 14:07] VITALS: BP 107/67
--- NOTE | 2017-03-02 17:45 | CP.PCM.PN ---
Subjective - Date & Time of Evaluation Date of Evaluation: 03/02/17 Time of Evaluation: 08:40 - Subjective Subjective: Seen earlier this morning, afebrile, not in distress. Objective - Vital Signs/Intake and Output Vital Signs (last 24 hours): Temp Pulse Resp BP Pulse Ox 97.3 F L 65 16 107/67 99 03/02/17 10:00 03/02/17 13:56 03/02/17 10:00 03/02/17 13:57 03/02/17 10:00 Intake and Output: 03/02/17 03/02/17 06:59 18:59 Intake Total 600 420 Balance 600 420 - Labs Labs: 03/02/17 07:30 02/27/17 08:43 - Constitutional Appears: Non-toxic, No Acute Distress - Head Exam Head Exam: NORMAL INSPECTION - ENT Exam ENT Exam: Mucous Membranes Moist - Neck Exam Neck Exam: absent: Lymphadenopathy, Meningismus - Respiratory Exam Respiratory Exam: Decreased Breath Sounds - Cardiovascular Exam Cardiovascular Exam: +S1, +S2 - GI/Abdominal Exam GI & Abdominal Exam: Soft. absent: Tenderness Assessment and Plan - Assessment and Plan (Free Text) Plan: Assessment consider sepsis due to left lower lobe healthcare-associated pneumonia, clinically improved Nausea with elevated Alk phos and bilirubin, R/O biliary tract disease history of cholecystitis CAD S/P PCI with chronic CHF atrial fibrillation on anticoagulation severe pulmonary HTN DM Plan on Doxycycline and Cefepime day 6 to complete a 4-7 day course; continue to trend WBC count; PCT was elevated at 0.63 and has now decreased 0.38 - we can d /c antibiotics
--- NOTE | 2017-03-03 10:17 | CP.PCM.PCO ---
Physician Communication Note - Physician Communication Note Physician Communication Note: pt was d/c yesterday
--- NOTE | 2017-05-05 16:09 | DS ---
This is a 76-year-old female who came into the hospital with and was found to have healthcare-associated pneumonia. She was treated with IV antibiotics, and she was discharged. Please see the note that is dictated on 03/02/2017 for details. Ben James MD
== END 2017-03-02 14:58 | disposition home or self-care (01) | DRG 871 ==
LOC: TRCU 14:28
PROVIDERS: ADMIT Internal Medicine Nephrology; ATTEND Internal Medicine Nephrology
PROC: F07Z9ZZ Gait Training/Functional Ambulation Treatment (ICD-10-PCS; principal; 2017-02-17)
PROC: F08Z4ZZ Home Management Treatment (ICD-10-PCS; 2017-02-19)
DX: A41.9 Sepsis, unspecified organism (principal); J18.9 Pneumonia, unspecified organism; I11.0 Hypertensive heart disease with heart failure; E11.42 Type 2 diabetes mellitus with diabetic polyneuropathy; F03.90 Unspecified dementia, unspecified severity, without behavioral disturbance, psychotic disturbance, mood disturbance, and anxiety; I50.9 Heart failure, unspecified; I27.2 Other secondary pulmonary hypertension; E87.1 Hypo-osmolality and hyponatremia; Y95 Nosocomial condition; I48.91 Unspecified atrial fibrillation; I25.10 Atherosclerotic heart disease of native coronary artery without angina pectoris; E78.5 Hyperlipidemia, unspecified; I36.1 Nonrheumatic tricuspid (valve) insufficiency; R29.6 Repeated falls; F41.9 Anxiety disorder, unspecified; Z91.81 History of falling; Z79.01 Long term (current) use of anticoagulants

== ENCOUNTER 2017-03-31 10:15 | Inpatient (IN) | payer BC, MEDICARE ==
--- NOTE | 2017-03-31 10:53 | RAD ---
HISTORY: weakness COMPARISON: 02/24/2017 FINDINGS: LUNGS: The right lung is clear. There is persistent left retrocardiac opacity and moderate left pleural effusion with question of a loculated component superiorly. There is subsegmental atelectasis in the left mid lung. PLEURA: No significant right pleural effusion identified, no pneumothorax apparent. CARDIOVASCULAR: Normal. OSSEOUS STRUCTURES: No significant abnormalities. VISUALIZED UPPER ABDOMEN: Normal. OTHER FINDINGS: None. IMPRESSION: Persistent left lower lobe pneumonia and worsening moderate left pleural effusion with suspected loculated component superiorly.
[2017-03-31] MEDS ORDERED: Vancomycin 1gm in NS 250ml 1 GM/250 ML BAG IVPB STA (10:54)
[2017-03-31] MEDS ORDERED: Piperacillin/Tazobact 3.375 gm 100 ML IVPB STA (10:54)
[2017-03-31 11:09] LABS: BASO # 0.02 K/mm3 (0.0-2.0); BASO % 0.2 % (0.0-3.0); EOS # 0.1 (0.0-0.7); EOS % 0.7 % (1.5-5.0); GRAN # 11.97 (1.4-6.5); GRAN % 90.6 % (50.0-68.0); HEMATOCRIT 38.6 % (36.0-48.0); LYMPH # 0.4 (1.2-3.4); LYMPH % 3.2 % (22.0-35.0); MEAN CELL VOLUME 88.9 fL (80.0-105.0); MEAN CORPUSCULAR HEMOGLOBIN 28.6 pg (25.0-35.0); MEAN CORPUSCULAR HGB CONC 32.1 g/dl (31.0-37.0); MEAN PLATELET VOLUME 8.8 fl (7.0-11.0); MONO # 0.7 (0.1-0.6); MONO % 5.3 % (1.0-6.0); PLATELET COUNT 181 10^3/uL (120.0-450.0); RED CELL DISTRIBUTION WIDTH 15.3 % (11.5-14.5); WHITE BLOOD COUNT 13.2 10^3/ul (4.5-11.0)
[2017-03-31 11:12] LABS: ADD MANUAL DIFF? NO
[2017-03-31 11:22] LABS: ALB/GLOB RATIO 0.8 (1.1-1.8); ALKALINE PHOSPHATASE 152 U/L (38-133); ALT/SGPT 27 U/L (7-56); AST/SGOT 25 U/L (15-39); BILIRUBIN,TOTAL 1.1 mg/dL (0.2-1.3); BLOOD UREA NITROGEN 15 mg/dL (7-21); CARBON DIOXIDE 28 mmol/L (21-33); CHLORIDE 96 mmol/L (98-107); GFR AFRICAN-AMERICAN > 60; GLUCOSE,RANDOM 270 mg/dL (70-110); POTASSIUM 3.8 mmol/L (3.6-5.0); SODIUM 129 mmol/L (132-148); TOTAL PROTEIN 6.1 g/dL (5.8-8.3)
[2017-03-31 11:23] LABS: INR 1.31 (0.93-1.08); PARTIAL THROMBOPLASTIN TIME 37.3 Seconds (23.7-30.8)
[2017-03-31 11:34] LABS: TROPONIN I 0.04 ng/mL
--- NOTE | 2017-03-31 12:46 | ED PDOC ---
Arrival/HPI - General Chief Complaint: Weakness/Neurological Deficit Time Seen by Provider: 03/31/17 10:27 Historian: Patient, Family - History of Present Illness Narrative History of Present Illness (Text): 03/31/17 10:30 A 76 year old female with a medical history which includes, but is not limited to Atrial Fibrillation, Diabetes Mellitus type 2, Coronary Artery Disease, and Pulmonary hypertension presents to the emergency department with difficulty ambulating for the past few days. She states symptoms of shortness of breath, chest pain, and shoulder pain. Patient denies any pain or other symptoms at this time. Daughter notes that patient was discharged last night from [facility] and prior to visit she prevented a fall by leaning against the wall and sliding down until she was in a sitting position. PMD: Dr. Cisneros Time/Duration: < week Symptom Onset: Gradual Symptom Course: Unchanged Associated Symptoms (Text): None Past Medical History - Provider Review Nursing Documentation Reviewed: Yes - Infectious Disease Hx of Infectious Diseases: None - Cardiac Hx Cardiac Disorders: Yes Hx Atrial Fibrillation: Yes Hx Congestive Heart Failure: No Hx Hypertension: Yes - Pulmonary Hx Respiratory Disorders: No Hx Chronic Obstructive Pulmonary Disease (COPD): No Hx Pneumonia: No - Neurological Hx Neurological Disorder: No HX Cerebrovascular Accident: No - HEENT Hx Blind: No Hx Cataracts: No Hx Deafness: (hard of hearing both ears) Hx Difficulty Chewing: (dentures at home) Hx Epistaxis: No Hx Glaucoma: No Hx Macular Degeneration: No - Renal Hx Renal Disorder: No Hx Renal Failure: No - Endocrine/Metabolic Hx Endocrine Disorders: Yes Hx Diabetes Mellitus Type 1: No Hx Diabetes Mellitus Type 2: Yes Hx Hypothyroidism: No - Hematological/Oncological Hx Blood Disorders: No Hx AIDS: No Hx Cancer: No - Integumentary Hx Basal Cell Carcinoma: No Hx Eczema: No Hx Melanoma: No Hx Psoriasis: No Hx Squamous Cell Carcinoma: No - Musculoskeletal/Rheumatological Hx Musculoskeletal Disorders: No Hx Arthritis: No Hx Rheumatoid Arthritis: No - Gastrointestinal Hx Gastrointestinal Disorders: No Hx Gastroesophageal Reflux: No - Genitourinary/Gynecological Hx Genitourinary Disorders: No Hx Reproductive Disorders: No - Psychiatric Hx Psychophysiologic Disorder: No Hx Anxiety: No Hx Bipolar Disorder: No Hx Depression: No Hx Emotional Abuse: No Hx Hallucinations: No Hx Panic Disorder: No Hx Post Traumatic Stress Disorder: No Hx Psychosis: No Hx Physical Abuse: No Hx Schizophrenia: No Hx Sexual Abuse: No Hx Substance Use: No - Surgical History Hx Amputation: No Hx Appendectomy: No Hx Cardiac Catheterization: Yes Hx Cholecystectomy: No Hx Coronary Stent: Yes Hx Gastric Bypass Surgery: No Hx Hysterectomy: No Hx Joint Replacement: No Hx Kidney Transplant: No Hx Liver Transplant: No Hx Mastectomy: No Hx Musculoskeletal Surgery: No Hx Open Heart Surgery: No Hx Orthopedic Surgery: No Hx Splenectomy: No Hx Valve Replacement: No - Anesthesia Hx Anesthesia: No Hx Anesthesia Reactions: No Hx Malignant Hyperthermia: No Family/Social History - Physician Review Nursing Documentation Reviewed: Yes Family/Social History: Unknown Family HX Smoking Status: Former Smoker Hx Alcohol Use: No Hx Substance Use: No Allergies/Home Meds Allergies/Adverse Reactions: Allergies Iodinated Contrast Media - Oral and [Iodinated Contrast Media - IV Dye] Allergy (Verified 03/31/17 10:24) ANAPHYLAXIS Home Medications: Home Meds Medication Instructions Recorded Confirmed Metoprolol Succinate [Toprol XL] 100 mg PO DAILY 12/25/15 03/31/17 Simvastatin [Zocor] 40 mg PO DAILY 12/25/15 03/31/17 metFORMIN [glucOPHAGE] 1,000 mg PO BID 12/25/15 03/31/17 Lasix 40 mg PO BID 12/28/15 03/31/17 Aspirin [Ecotrin] 81 mg PO DAILY 12/24/16 03/31/17 Spironolactone [Aldactone] 25 mg PO BID 12/24/16 03/31/17 Dabigatran [Pradaxa] 150 mg PO BID 02/15/17 03/31/17 Glimepiride [Amaryl] 4 mg PO BID 02/15/17 03/31/17 Review of Systems - Physician Review All systems were reviewed & negative as marked: Yes - Review of Systems Constitutional: Other (Generalized weakness ). absent: Fevers Respiratory: SOB Cardiovascular: Chest Pain Musculoskeletal: Other (Left shoulder pain) Physical Exam Vital Signs Reviewed: Yes Vital Signs Temp Pulse Resp BP Pulse Ox 03/31/17 18:25 118 H 18 133/71 99 03/31/17 16:44 112 H 18 149/75 99 03/31/17 15:34 113 H 19 120/50 L 99 03/31/17 15:18 98 H 18 131/68 100 03/31/17 13:33 100 H 19 133/70 100 03/31/17 12:19 110 H 18 131/71 97 03/31/17 11:56 131/71 03/31/17 11:31 112 H 18 122/85 97 03/31/17 10:32 98.7 F 101 H 16 124/88 97 Temperature: Afebrile Blood Pressure: Normal Pulse: Tachycardic Respiratory Rate: Normal Appearance: Positive for: Well-Appearing, Non-Toxic, Comfortable Pain Distress: None Mental Status: Positive for: Alert and Oriented X 3 - Systems Exam Head: Present: Atraumatic, Normocephalic Pupils: Present: PERRL Extroacular Muscles: Present: EOMI Conjunctiva: Present: Normal Mouth: Present: Moist Mucous Membranes Neck: Present: Normal Range of Motion Respiratory/Chest: Present: Good Air Exchange, Other. No: Respiratory Distress , Accessory Muscle Use Cardiovascular: Present: Regular Rate and Rhythm, Normal S1, S2. No: Murmurs Abdomen: Present: Normal Bowel Sounds. No: Tenderness, Distention, Peritoneal Signs Neurological: Present: GCS=15, CN II-XII Intact, Speech Normal, Motor Func Grossly Intact, Normal Sensory Function, Normal Cerebellar Funct, Norm Deep Tendon Reflexes, Memory Normal, Normal 2Pt Descrimination Skin: Present: Warm, Dry, Normal Color. No: Rashes Psychiatric: Present: Alert, Oriented x 3, Normal Insight, Normal Concentration Medical Decision Making ED Course and Treatment: Impression: A 76 year old female complaints of difficulty ambulating and chest pain with shortness of breath. Differential Diagnosis included but are not limited to: Plan: -- EKG -- Chest X-ray -- Lasix, Vancomycin, Pipercaillin -- Reassess and disposition Prior Visits: Notes and results from previous visits were reviewed. Patient was last seen in the Emergency department on 02/17/17 for a fall. Progress Notes: EKG: Ordered, reviewed, and independently interpreted the EKG. Rate : 112 BPM Rhythm : Irregularly Irregular Atrial Fibrillation Interpretation : Non specific ST/T changes Chest X-Ray Pharmacy Benefits Coordinator : Jeannette Pelaez MD IMPRESSION: Persistent left lower lobe pneumonia and worsening moderate left pleural effusion with suspected loculated component superiorly. 03/31/17 11:49 Dr. James accepted patient for admission. - Lab Interpretations Microbiology Results: Microbiology Results 03/31/17 11:16 Blood Blood Culture - Preliminary NO GROWTH AFTER 48 HOURS 03/31/17 11:12 Blood Blood Culture - Preliminary NO GROWTH AFTER 48 HOURS Lab Results: 03/31/17 10:34 03/31/17 11:03 Lab Results 03/31/17 11:03: Sodium 129 L, Potassium 3.8, Chloride 96 L, Carbon Dioxide 28, Anion Gap 9 L, BUN 15, Creatinine 0.7, Est GFR ( Amer) > 60, Est GFR (Non -Af Amer) > 60, Random Glucose 270 H, Calcium 8.0 L, Magnesium 2.0, Total Bilirubin 1.1, AST 25, ALT 27, Alkaline Phosphatase 152 H, Lactate Dehydrogenase 601, Total Creatine Kinase 20 L, Troponin I 0.04 D, NT-Pro-B Natriuret Pep 80925 H, Total Protein 6.1, Albumin 2.8 L, Globulin 3.3, Albumin/ Globulin Ratio 0.8 L 03/31/17 11:03: PT 14.2 H, INR 1.31 H, APTT 37.3 H 03/31/17 10:34: WBC 13.2 H, RBC 4.34, Hgb 12.4, Hct 38.6, MCV 88.9, MCH 28.6, MCHC 32.1, RDW 15.3 H, Plt Count 181, MPV 8.8, Gran % 90.6 H, Lymph % (Auto) 3.2 L, Green % (Auto) 5.3, Eos % (Auto) 0.7 L, Baso % (Auto) 0.2, Gran # 11.97 H , Lymph # 0.4 L, Green # 0.7 H, Eos # 0.1, Baso # 0.02 I have reviewed the lab results: Yes - RAD Interpretation Radiology Orders: 03/31/17 10:34 CHEST PORTABLE [RAD] Stat - EKG Interpretation Interpreted by ED Physician: Yes Type: 12 lead EKG - Medication Orders Current Medication Orders: Aspirin (Aspirin Chewable) 81 mg PO DAILY [facility] Last Admin: 04/02/17 09:12 Dose: 81 mg Atorvastatin Calcium (Lipitor) 20 mg PO DIN [facility] Last Admin: 04/02/17 17:41 Dose: 20 mg Dabigatran (Pradaxa) 150 mg PO BID [facility] PRN Reason: Protocol Last Admin: 04/02/17 17:41 Dose: 150 mg Doxycycline Hyclate (Doryx) 100 mg PO Q12 [facility] PRN Reason: Protocol Stop: 04/10/17 22:01 Last Admin: 04/02/17 22:03 Dose: 100 mg Furosemide (Lasix) 40 mg PO BID [facility] Last Admin: 04/02/17 17:41 Dose: 40 mg Meropenem 1g/NS 100mL IVPB (Meropenem 1g/Ns 100ml Ivpb) 1 gm in 100 mls @ 100 mls/hr IVPB Q8 [facility] PRN Reason: Protocol Stop: 04/10/17 22:01 Last Admin: 04/03/17 05:37 Dose: 100 mls/hr Insulin Human Regular (Humulin R Low) 0 units SC ACHS [facility] PRN Reason: Protocol Last Admin: 04/02/17 22:44 Dose: Not Given Non-Admin Reason: Blood Sugar Parameter Metoprolol Succinate (Toprol Xl) 100 mg PO DAILY [facility] Last Admin: 04/02/17 09:22 Dose: 100 mg Polyethylene Glycol (Miralax) 17 gm PO BID [facility] Last Admin: 04/02/17 17:41 Dose: 17 gm Spironolactone (Aldactone) 25 mg PO BID [facility] Last Admin: 04/02/17 17:41 Dose: 25 mg Discontinued Medications Diltiazem HCl (Cardizem) 10 mg IVP ONCE ONE Stop: 03/31/17 20:39 Last Admin: 03/31/17 20:59 Dose: 10 mg Furosemide (Lasix) 20 mg IVP STAT STA Stop: 03/31/17 11:37 Last Admin: 03/31/17 11:56 Dose: 20 mg Vancomycin HCl (Vancomycin 1gm) 1 gm in 250 mls @ 167 mls/hr IVPB STAT STA PRN Reason: Protocol Stop: 03/31/17 12:23 Last Admin: 03/31/17 11:56 Dose: 167 mls/hr Piperacillin Sod/Tazobactam Sod (Zosyn 3.375 In Ns 100ml) 100 mls @ 200 mls/hr IVPB STAT STA PRN Reason: Protocol Stop: 03/31/17 11:23 Last Admin: 03/31/17 11:11 Dose: 200 mls/hr Insulin Human Regular (Humulin R) Confirm Administered Dose 2 units .ROUTE .STK- MED ONE Stop: 04/02/17 12:51 Last Admin: 04/02/17 14:26 Dose: Metoprolol Succinate (Toprol Xl) 100 mg PO STAT STA Stop: 03/31/17 20:47 Last Admin: 03/31/17 20:59 Dose: 100 mg Pneumococcal Polyvalent Vaccine (Pneumovax 23 Vaccine) 0.5 ml IM .ONCE ONE Stop: 03/31/17 21:09 Last Admin: 04/01/17 07:55 Dose: - Scribe Statement The provider has reviewed the documentation as recorded by the Angel Mohan training under Ronan Justa Provider Scribe Attestation: All medical record entries made by the Allisonibe were at my direction and personally dictated by me. I have reviewed the chart and agree that the record accurately reflects my personal performance of the history, physical exam, medical decision making, and the department course for this patient. I have also personally directed, reviewed, and agree with the discharge instructions and disposition. Disposition/Present on Arrival - Present on Arrival Any Indicators Present on Arrival: No History of DVT/PE: No History of Uncontrolled Diabetes: No Urinary Catheter: No History of Decub. Ulcer: No History Surgical Site Infection Following: None - Disposition Have Diagnosis and Disposition been Completed?: Yes Diagnosis: Congestive heart failure, Pneumonia, Pleural effusion Disposition: HOSPITALIZED Disposition Time: 11:00 Patient Problems: Current Active Problems Problem Status Onset Congestive heart failure Acute Pleural effusion Acute Pneumonia Acute Condition: FAIR
[2017-03-31 12:56] LABS: PH,URINE 6.5 (4.7-8.0); URINE BILIRUBIN NEGATIVE (NEGATIVE); URINE BLOOD TRACE-INTACT (NEGATIVE); URINE GLUCOSE (UA) 250 mg/dL (NEGATIVE); URINE KETONE NEGATIVE (NEGATIVE); URINE LEUKOCYTE ESTERASE SMALL Leu/uL (NEGATIVE); URINE PROTEIN NEGATIVE mg/dL (<30 mg/dL); URINE UROBILINOGEN 0.2 E.U./dL (<1 E.U./dL)
[2017-03-31 12:57] LABS: URINE APPEARANCE CLEAR (CLEAR); URINE COLOR STRAW (YELLOW)
[2017-03-31 13:11] LABS: URINE BACTERIA FEW (NEG); URINE EPITHELIAL CELLS 0 - 2 /hpf (0-5); URINE RBC 0 - 2 /hpf (0-2)
--- NOTE | 2017-03-31 15:14 | CARD ---
APPROVED REPORT EKG Measurement Heart [id number] <Conclusion> Atrial fibrillation with rapid ventricular response with premature ventricular or aberrantly conducted complexes Cannot rule out Anterior infarct, age undetermined Abnormal ECG
[2017-03-31] MEDS ORDERED: Metoprolol Succinate 100 mg XL Tab PO STA (20:46)
[2017-03-31 21:08] VITALS: BMI 24.4
[2017-03-31] MEDS ORDERED: Pneumococcal 23-Valent Vaccine IM ONE (21:08)
[2017-03-31] MEDS: Insulin Reg-LOW-Coverage SC SCH (22:42)
[2017-04-01] MEDS: Insulin Reg-LOW-Coverage SC SCH ×4 (07:54→22:38)
[2017-04-01 08:41] LABS: ADD MANUAL DIFF? NO
[2017-04-01 08:51] LABS: BASO # 0.01 K/mm3 (0.0-2.0); BASO % 0.1 % (0.0-3.0); EOS # 0.2 (0.0-0.7); EOS % 1.3 % (1.5-5.0); GRAN # 10.64 (1.4-6.5); GRAN % 89.3 % (50.0-68.0); HEMATOCRIT 35.8 % (36.0-48.0); LYMPH # 0.4 (1.2-3.4); LYMPH % 3.3 % (22.0-35.0); MEAN CELL VOLUME 88.4 fL (80.0-105.0); MEAN CORPUSCULAR HEMOGLOBIN 28.9 pg (25.0-35.0); MEAN CORPUSCULAR HGB CONC 32.7 g/dl (31.0-37.0); MEAN PLATELET VOLUME 8.7 fl (7.0-11.0); MONO # 0.7 (0.1-0.6); PLATELET COUNT 163 10^3/uL (120.0-450.0); WHITE BLOOD COUNT 11.9 10^3/ul (4.5-11.0)
[2017-04-01 09:01] LABS: ALB/GLOB RATIO 0.8 (1.1-1.8); ALKALINE PHOSPHATASE 115 U/L (38-133); ALT/SGPT 21 U/L (7-56); AST/SGOT 20 U/L (15-39); BILIRUBIN,TOTAL 1.2 mg/dL (0.2-1.3); BLOOD UREA NITROGEN 12 mg/dL (7-21); CALCIUM 7.7 mg/dL (8.4-10.5); CARBON DIOXIDE 30 mmol/L (21-33); CHLORIDE 98 mmol/L (98-107); GFR AFRICAN-AMERICAN > 60; GLUCOSE,RANDOM 109 mg/dL (70-110); POTASSIUM 3.8 mmol/L (3.6-5.0); SODIUM 132 mmol/L (132-148); TOTAL PROTEIN 5.3 g/dL (5.8-8.3)
[2017-04-01 09:15] LABS: FREE T4 1.16 ng/dL (0.78-2.19)
[2017-04-01] MEDS: Metoprolol Succinate 100 mg XL Tab PO SCH (09:16)
[2017-04-01 09:29] LABS: THYROID STIMULATING HORMONE 3.84 mIU/mL (0.46-4.68)
--- NOTE | 2017-04-01 09:57 | HP ---
CHIEF COMPLAINT AND HISTORY OF PRESENT ILLNESS: This is a 76-year-old female who is coming into the hospital because of difficulty in walking. She says that she was discharged from [facility] the night before coming in to the ER. She had fallen. She was leaning against a wall and sl id down. The patient says that she was having shoulder pain. In the ER, she was complaining of shor tness of breath, but this morning, she says she is not short of breath. She has no fevers or chills, no nausea, no vomiting, no dysuria or frequency. She feels weak. She is fatigued. She has difficulty with recalling recent events. REVIEW OF SYMPTOMS: Limited because of the patient's confusion. ALLERGIES: TO IODINE. HOME MEDICATIONS: Toprol, Zocor, Glucophage, Lasix, aspirin, Aldactone, Pradaxa, Amaryl. PAST MEDICAL HISTORY: 1. Healthcare-associated pneumonia. 2. Sepsis. 3. Delirium. 4. Hyponatremia. 5. Atrial fibrillation. 6. Pulmonary hypertension. 7. Tricuspid regurg. 8. Diabetes type 2. FAMILY HISTORY: The mother had coronary disease and high blood pressure. SOCIAL HISTORY: No history of smoking or drinking. PHYSICAL EXAMINATION: VITAL SIGNS: She has a temperature of 98.7, pulse of 82, blood pressure is 113/68, respirations 20, O2 saturation 98%. GENERAL: The patient is lying in bed, flat, and in no apparent distress. HEAD AND NECK EXAM: Atraumatic, normocephalic. Conjunctivae are pink. Throat clear and mouth with moist mucosa. Oropharynx benign. EYES: Extraocular movements are intact. PERRLA. NECK: Supple. No JVD, thyromegaly, or adenopathy. No bruits. HEART: S1 and S2 regular rate and rhythm. No murmurs, rubs, or gallops. LUNGS: Clear to auscultation bilaterally. No wheezing rales or rhonchi appreciated. No retractions on exam. ABDOMEN: Soft, nontender, nondistended. Bowel sounds are positive in all quadrants. No rebound. No hepatosplenomegaly. EXTREMITIES: No cyanosis, clubbing, or edema. NEUROLOGIC: No facial asymmetry, tongue is midline, no uvula deviation. Power is 5/5 in upper extre mity and 5/5 in lower extremity. Sensation is normal in upper extremity and lower extremity. PSYCHIATRIC: The patient is alert, awake, oriented x 2. No anxiety or depression symptoms. Good in sight. Normal affect. GENITOURINARY: No CVA tenderness VASCULAR: 2+ pulses in carotid and pedal pulses. SKIN: No erythema or abnormal nodules noted. SPINE: Normal curvature. LYMPHADENOPATHY: No anterior cervical or posterior cervical adenopathy. No inguinal adenopathy. LABORATORY DATA: Sodium is 129, creatinine is 0.7. ProBNP is 12,800. White count of 13.2, hemoglobin is 12.4, platelet count is 181. INR is 1.3. Urine shows blood that is trace, nitrites are negative, bilirubin is negative. ____ left pleural effusion with left infiltrate. EKG shows a heart rate of 112. QTC of 395. ASSESSMENT: 1. Left-sided pleural effusion with possible loculation. 2. Delirium 3. Hyponatremia. 4. Atrial fibrillation, on anticoagulation. 5. Pulmonary hypertension. 6. Tricuspid regurgitation. 7. Diabetes type 2. 8. Coronary artery disease. PLAN: The patient is going to be admitted to the hospital. The patient is going to be on Lasix goldie y. We will continue the patient on Lipitor. I have placed the patient on sliding scale. She is goi ng to be on metoprolol. She had a rapid rate yesterday and she was given a dose of Cardizem. I will get Dr. Deal and Dr. Kong to evaluate the patient. I will also get ID evaluation. The patient was in [facility] yesterday. She is debilitated. She will most likely need physica l therapy. She may need subacute rehab. I will talk to the family to give them an update. Ben James MD cc: [id number] TT: 04/01/2017 09:56:11 mi
--- NOTE | 2017-04-01 10:24 | CON ---
DATE: 04/01/2017 INDICATIONS: Shortness of breath, chest pain, pneumonia, atrial fibrillation. HISTORY OF PRESENT ILLNESS: This is a 76-year-old woman known to us from prior admissions, admitted through the Emergency Room with shortness of breath, chest pain and shoulder pain. She had been in [facility] and was discharged. She felt weak and had a near syncope event. She was sent to the Emergency Room. She was admitted yesterday initially with atrial fibrillation with rapid ventricular response which responded to 1 dose of a Cardizem bolus. Currently, she is on telemetry with moderate atrial fibrillation, resting comfortably in bed. There is no chest pain or shortness of breath. There is no orthopnea, PND, vertigo, palpitations, edema, abdominal pain, nausea, vomiting, diarrhea, constipation, melena, fever, chills, cough, sputum production, hemoptysis. PAST MEDICAL HISTORY: Notable for several recent [facility] admissions. She has had falls. She has chronic AFib, diabetes, coronary artery disease with remote myocardial infarction and coronary intervention. There is a history of CHF, hyperlipidemia and gallstones. Echocardiography reveals moderate mitral regurgitation, mild functional mitral stenosis, moderate to severe tricuspid regurgitation and severe pulmonary hypertension. On admission, her chest x-ray revealed persistent left lower lobe pneumonia, worsening moderate left pleural effusion. MEDICATIONS: At the time of admission include metoprolol, simvastatin, metformin, Lasix, aspirin, Aldactone, Pradaxa, glimepiride. SOCIAL HISTORY: She lives at home. She does not smoke. She does not drink alcohol. ALLERGIES: SHE NOTES ALLERGIES TO CONTRAST MEDIA AND SHE HAS NOT TOLERATED WILBER INHIBITORS. FAMILY HISTORY: Positive for heart disease. REVIEW OF SYSTEMS: A 10-point review of systems is otherwise unremarkable except as noted above. PHYSICAL EXAMINATION: GENERAL: She is a well-developed elderly woman lying in bed in telemetry in no acute distress. VITAL SIGNS: Notable for atrial fibrillation with a moderate ventricular response, 82 beats per minute, afebrile, blood pressure 113/68, respirations 18- 20, O2 sat 95%-99% on nasal cannula and room air. HEENT: Reveals no neck vein distention, thyromegaly, or carotid bruits. Mucous membranes are moist. Conjunctivae are pink. NECK: Supple. LUNGS: Lung crane have scattered rhonchi, left greater than right, diminished breath sounds at the left base. HEART: Revealed an irregular rhythm, normal first and second heart sounds, which are distant. Systolic murmur along the left sternal border. ABDOMEN: Soft, bowel sounds present. No mass, organomegaly, tenderness, rebound, or guarding. No CVA tenderness. No palpable abdominal aortic aneurysm. EXTREMITIES: Revealed no cyanosis, clubbing, or edema. NEUROLOGIC: She is awake, alert and oriented. SKIN: Warm and dry. No rash or cellulitis. PSYCHIATRIC: Normal as to mood and affect. LABORATORY AND IMAGING: Chest x-ray as noted. EKG demonstrates atrial fibrillation with rapid ventricular response, nonspecific ST-wave changes. White count 13,200, repeat 11,900, hemoglobin 11.7, hematocrit 35.8, platelet count 163,000. PT 14.2, INR 1.31. PTT 37.3. Electrolytes abnormal. Initial sodium 129, repeat 132. BUN and creatinine unremarkable. Blood sugar is in the 100-200 range. Magnesium 2.0. LFTs unremarkable. CK 20, troponin 0.04. BNP 12,800. Urinalysis is abnormal. IMPRESSION: The patient is a 76-year-old woman status post [facility] admission, admitted with what appears to be left lower lobe pneumonia with pleural effusion as well as atrial fibrillation, rapid ventricular response, weakness, chest pain, shortness of breath. PLAN: She is on telemetry. She is cultured. She is getting antibiotics. She got IV Lasix in the Emergency Room. She got IV diltiazem as well. I would continue p.o. meds including spironolactone, aspirin, metoprolol, Lipitor in substitution for simvastatin, Lasix, aspirin, Pradaxa, diabetes meds. We will monitor I's and O's, stool for occult blood and daily labs. I will review her old records. Pulmonary and ID consultations are pending. She can be out of bed to a chair. I will follow along with you. I will make additional recommendations based on her clinical course. Alhaji Kong MD cc: [id number] TT: 04/01/2017 10:23:18 Confirmation # [id number] Dictation # [id number] steve NELSON
[2017-04-01 12:14] LABS: TROPONIN I 0.04 ng/mL
[2017-04-01] MEDS: POLYETHYLENE GLYCOL 3350 17 GM/Dose PACKET PO SCH (17:37)
--- NOTE | 2017-04-01 22:11 | CON ---
DATE: 04/01/2017 The patient seen earlier in room 267. CHIEF COMPLAINT: Weakness. 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 SHE IS ALLERGIC TO IODINATED CONTRAST MEDIA, ORAL. The patient admitted with a diagnosis of congestive heart failure, pleural effusion, and pneumonia. Infectious disease consultation requested. The patient denies any fevers and chills. She is weak. She was short of breath. There is no abdomi nal pain. There is shortness of breath. No nausea or vomiting. No dysuria or frequency. PAST MEDICAL HISTORY: Significant for diabetes mellitus, severe pulmonary hypertension, atrial fibri llation, coronary artery disease, cholecystitis, and splenic infarct. PAST SURGICAL HISTORY: Significant for cardiac catheterization with PCI. ALLERGIES: THE PATIENT IS ALLERGIC TO IODINATED CONTRAST MEDIA, AND IT IS ORAL. MEDICATIONS AT HOME: Reveal the patient to be on metformin, Aldactone, Zocor. PHYSICAL EXAMINATION: VITAL SIGNS: The patient is in bed with a temperature of 98, heart rate of 100, respiratory rate of 18, blood pressure is 120/70, and an oxygen saturation of 97%. HEENT: Unremarkable. NECK: Supple. LUNGS: Have decreased breath sounds. HEART: Normal S1, S2. ABDOMEN: Soft, nontender. LABORATORY EXAMINATION: Reveals a white count of 13,200, hemoglobin of 12, platelets of 182. Chemis tries are noted with BNP over 11,000. Glucose is 230. LFTs are normal. Urinalysis is unremarkable. Chest x-ray is noted. The patient does have a positive infiltrate and persistent left retrocardiac opacity, moderate left pleural effusion, questionable loculated effusion. The right lung is clear. Dr. Alhaji Kong's consultation is reviewed. Dr. James's history and physical examination is also reviewed. ASSESSMENT AND PLAN: A 76-year-old female with coronary artery disease, atrial fibrillation, pulmona ry hypertension, diabetes mellitus, and history of splenic infarct, now presenting with tachycardia, leukocytosis, infiltrate, recent hospitalization. Sepsis with a left lower lobe healthcare-associated possible gram-positive cocci, possible gram-negat aniceto nessa pneumonia, in face of acute diastolic ejection fraction preserved, congestive heart failure o n top of chronic congestive heart failure with ejection fraction of 50% in the last echo done. Will start the patient on meropenem, doxycycline. Blood cultures, urine cultures, sputum cultures. Will order a procalcitonin. Will order a CAT scan of the chest to rule out a loculated effusion. Will ma ke further recommendations upon availability of initial results. Denver Scott MD cc: 350 TT: 04/01/2017 22:10:22 Confirmation # [id number] Dictation # [id number] dn
[2017-04-01] MEDS: Meropenem 1g/NS 100mL IVPB 1 GM/100 ML PIGGYBACK IVPB SCH (22:39)
[2017-04-02] MEDS: Meropenem 1g/NS 100mL IVPB 1 GM/100 ML PIGGYBACK IVPB SCH ×3 (06:42→22:02)
[2017-04-02 07:03] LABS: HEMATOCRIT 34.3 % (36.0-48.0); MEAN CELL VOLUME 88.4 fL (80.0-105.0); MEAN CORPUSCULAR HEMOGLOBIN 28.9 pg (25.0-35.0); MEAN CORPUSCULAR HGB CONC 32.7 g/dl (31.0-37.0); MEAN PLATELET VOLUME 8.7 fl (7.0-11.0); RED CELL DISTRIBUTION WIDTH 14.9 % (11.5-14.5); WHITE BLOOD COUNT 10.5 10^3/ul (4.5-11.0)
[2017-04-02 07:13] LABS: ALB/GLOB RATIO 0.8 (1.1-1.8); ALKALINE PHOSPHATASE 110 U/L (38-133); ALT/SGPT 19 U/L (7-56); AST/SGOT 18 U/L (15-39); BILIRUBIN,TOTAL 1.3 mg/dL (0.2-1.3); BLOOD UREA NITROGEN 13 mg/dL (7-21); CALCIUM 7.4 mg/dL (8.4-10.5); CARBON DIOXIDE 28 mmol/L (21-33); CHLORIDE 97 mmol/L (98-107); GFR AFRICAN-AMERICAN > 60; GLUCOSE,RANDOM 150 mg/dL (70-110); SODIUM 130 mmol/L (132-148); TOTAL PROTEIN 5.2 g/dL (5.8-8.3)
--- NOTE | 2017-04-02 09:04 | CP.PCM.PN ---
Subjective - Date & Time of Evaluation Date of Evaluation: 04/02/17 Time of Evaluation: 07:00 - Subjective Subjective: Stable on 2R. No CP or SOB. V/S noted. AF with mod. VR PE: Lungs: rhonchi Cor.: irreg., S1S2 Abd.: soft Ext.: no edema Neuro.: alert I/O = 430/450 Labs noted: na+= 130 BC x2 NG at 24 hrs. Objective - Vital Signs/Intake and Output Vital Signs (last 24 hours): Temp Pulse Resp BP Pulse Ox 97.6 F 96 H 20 102/65 98 04/02/17 06:00 04/02/17 06:00 04/02/17 06:00 04/02/17 06:00 04/01/17 05:43 Intake and Output: 04/02/17 04/02/17 06:59 18:59 Intake Total 180 Output Total 250 Balance -70 - Medications Medications: Current Medications Aspirin (Aspirin Chewable) 81 mg PO DAILY [facility] Last Admin: 04/01/17 11:47 Dose: 81 mg Atorvastatin Calcium (Lipitor) 20 mg PO DIN [facility] Last Admin: 04/01/17 17:35 Dose: 20 mg Dabigatran (Pradaxa) 150 mg PO BID [facility] PRN Reason: Protocol Last Admin: 04/01/17 17:35 Dose: 150 mg Doxycycline Hyclate (Doryx) 100 mg PO Q12 [facility] PRN Reason: Protocol Stop: 04/10/17 22:01 Last Admin: 04/01/17 22:38 Dose: 100 mg Furosemide (Lasix) 40 mg PO BID [facility] Last Admin: 04/01/17 17:35 Dose: 40 mg Meropenem 1g/NS 100mL IVPB (Meropenem 1g/Ns 100ml Ivpb) 1 gm in 100 mls @ 100 mls/hr IVPB Q8 [facility] PRN Reason: Protocol Stop: 04/10/17 22:01 Last Admin: 04/02/17 06:42 Dose: 100 mls/hr Insulin Human Regular (Humulin R Low) 0 units SC ACHS [facility] PRN Reason: Protocol Last Admin: 04/01/17 22:38 Dose: Not Given Metoprolol Succinate (Toprol Xl) 100 mg PO DAILY [facility] Last Admin: 04/01/17 09:16 Dose: 100 mg Polyethylene Glycol (Miralax) 17 gm PO BID [facility] Last Admin: 04/01/17 17:37 Dose: 17 gm Spironolactone (Aldactone) 25 mg PO BID [facility] Last Admin: 04/01/17 17:34 Dose: 25 mg - Labs Labs: 04/02/17 06:15 04/02/17 06:15 PT 14.2 Seconds (9.9-11.8) H 03/31/17 11:03 INR 1.31 (0.93-1.08) H 03/31/17 11:03 APTT 37.3 Seconds (23.7-30.8) H 03/31/17 11:03 Assessment and Plan - Assessment and Plan (Free Text) Assessment: SOB/CP/Shoulder pain AF with RVR Pneumonia Pleural effusion CAD/remote FL and PCI Diabetes Falls CHF HLD Gall Stones Echo: Nl LV, Mild/Mod. MR, Mod. TR and Sev. PH Plan: Continue metoprolol As per pulmonary, ID OOB as jeremiah. Check CT Chest Monitor: I/O, Na.+, labs, sats., etc.
[2017-04-02] MEDS: Insulin Reg-LOW-Coverage SC SCH ×4 (09:11→22:44)
[2017-04-02] MEDS: POLYETHYLENE GLYCOL 3350 17 GM/Dose PACKET PO SCH ×2 (09:18→17:41)
[2017-04-02] MEDS: Metoprolol Succinate 100 mg XL Tab PO SCH (09:22)
--- NOTE | 2017-04-02 10:17 | CT ---
PROCEDURE: HISTORY: r/o loculated effusion COMPARISON: Two thousand fourteen TECHNIQUE: Noncontrast radiation dose 502 mGy. FINDINGS: There is a large left pleural effusion which is partially loculated along the lateral margin associated infiltrate throughout the left upper lung field along with compressive atelectasis the left base. There is a small right pleural effusion. There is no significant mediastinal or hilar lymphadenopathy. The proximal tracheobronchial tree is patent. The right lung is relatively clear. There are diffuse vascular calcifications. There is a small pericardial effusion. The heart is enlarged. Scans through the upper abdomen demonstrate a questionable splenic/left upper quadrant mass with infiltration in the left upper quadrant mesenteric fat. No rib lesion is observed. IMPRESSION: Large loculated left pleural effusion with almost complete opacification of left hemithorax common association with compressive atelectasis and infiltrate. Associated small right pleural effusion. Suggestion of a splenic/left upper quadrant mass with infiltration of the mesenteric fat. Correlation with dedicated contrast-enhanced CT scan of the abdomen pelvis is recommended. The
--- NOTE | 2017-04-02 11:03 | PN ---
DATE: 04/02/2017 SUBJECTIVE: The patient is in bed in no acute distress, nontoxic, was seen earlier, had an uneventfu l night. PHYSICAL EXAMINATION: VITAL SIGNS: Temperature is 97, blood pressure is 110/60, respiratory rate of 20, heart rate of 94. HEENT: Unremarkable. NECK: Supple. LUNGS: Have decreased breath sounds. HEART: Normal S1, S2. ABDOMEN: Soft, nontender. LABORATORY DATA: Reveals a white count of 10,500, hemoglobin of 11 and platelets of 183. Chemistrie s are noted, BUN of 13, creatinine of 0.8. The BNP is 11,400. Urinalysis is unremarkable. Microbio logy reveals the blood cultures are negative. Urine culture is mixed organisms. Review of the order s reveals the procalcitonin is pending and patient is on p.o. doxycycline and IV meropenem day #2. T he patient had a CT scan of the chest, which was read by Dr. Darwin Duval, a large loculated left pl eural effusion, almost complete opacification of the left hemithorax, associated small right pleural effusion, suggestion of a splenic left upper quadrant mass, infiltration of the mesenteric fat. 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 We steve l continue day #2 of meropenem and doxycycline. Should have Dr. Nick Colinders review the CT scan and p ulmonary evaluation. Dr. Alhaji Kong's note is reviewed. Dr. James's history and physical exami [facility] [place] is reviewed. Denver Scott MD cc: [id number] TT: 04/02/2017 11:02:52 Confirmation # [id number] Dictation # [id number] cn
[2017-04-02] MEDS ORDERED: Insulin Regular 1 UNITS/0.01 ML ML ONE (12:50)
--- NOTE | 2017-04-02 14:58 | CT ---
PROCEDURE: CT Abdomen and Pelvis without intravenous contrast HISTORY: lft upper quad mass on CT chest COMPARISON: CT chest 04/02/2017 TECHNIQUE: Without contrast.. Contrast Dose: 0 Radiation dose: Total exam DLP = 663.70 mGy-cm. This CT exam was performed using one or more of the following dose reduction techniques: Automated exposure control, adjustment of the mA and/or kV according to patient size, and/or use of iterative reconstruction technique. FINDINGS: LOWER THORAX: Small right pleural effusion. Moderate left pleural effusion. Left lower lobe subsegmental atelectasis, likely compressive. Cardiomegaly. Mitral annular calcification. LIVER: Unremarkable. No gross lesion or ductal dilatation. GALLBLADDER AND BILE DUCTS: Cholelithiasis. No mural thickening. PANCREAS: Unremarkable. No gross lesion or ductal dilatation. SPLEEN: The spleen is significant for band like low-attenuation as seen on prior abdominal/pelvic CT. However, in addition, there is soft tissue density arising from the superior/lateral spleen extending into adjacent mesenteric fat anteriorly and posteriorly to the diaphragm. Concerning for neoplasm. Recommend contrast enhanced computed tomography of the abdomen. The band -like low attenuation likely represents old splenic infarct as previously described. ADRENALS: Unremarkable. No mass. KIDNEYS AND URETERS: Unremarkable. No hydronephrosis. No solid mass. VASCULATURE: Unremarkable. No aortic aneurysm. BOWEL: Unremarkable. No obstruction. No gross mural thickening. APPENDIX: Not positively identified. PERITONEUM: No ascites. Mild presacral edema, nonspecific. LYMPH NODES: Unremarkable. No enlarged lymph nodes. BLADDER: Unremarkable. REPRODUCTIVE: Unremarkable uterus. Few coarse calcifications likely representing old calcified degenerated fibroids. BONES: Mild lumbar levoscoliosis. No acute fracture. OTHER FINDINGS: None. IMPRESSION: Suspicion of neoplastic process involving the superior/lateral spleen extending into adjacent mesenteric fat and to the diaphragm. Concerning for neoplastic process. Recommend evaluation with contrast-enhanced computed tomography. Moderate left and small right pleural effusion. Left lower lobe subsegmental atelectasis. Cholelithiasis. Additional minor findings as above.
--- NOTE | 2017-04-02 23:06 | HP ---
HISTORY OF PRESENT ILLNESS: The patient is a 76-year-old female admitted to the hospital with difficulty in walking. She felt weak. She was discharged from [facility] (Formerly [facility]) when she fell at home. CAT scan of the chest showed left-sided loculated pleural effusion, ill-defined mass was identified in the left upper quadrant. She denies any fever, no chills, no rigors. She has a history of diabetes mellitus. Blood sugars are controlled with the current regimen. She also has a history of pulmonary hypertension and atrial fibrillation. She was complaining of shortness of breath also, increased for the past few days. No bleeding from any site. No weight loss. She feels fatigued and weak. ALLERGIES: IODINE CONTRAST. HOME MEDICATIONS: , Zocor, Glucophage, Lasix, aspirin, Aldactone, Pradaxa, Amaryl. PAST MEDICAL HISTORY: Sepsis, hyponatremia, atrial fibrillation, pulmonary hypertension, tricuspid regurgitation, diabetes mellitus type 2, healthcare- associated pneumonia. FAMILY HISTORY: Mother had coronary artery disease and hypertension. SOCIAL HISTORY: No history of smoking or drinking. Lives with a son. REVIEW OF SYSTEMS: As per HPI. The rest of 12-point review of systems reviewed and negative. PHYSICAL EXAMINATION: GENERAL: Comfortable in bed, in no acute distress. VITAL SIGNS: Temperature is 98.8, heart rate is 80 per minute, blood pressure 110/70, respiratory 18 per minute, oxygen saturation 98% on room air. HEENT: Normal. No lymphadenopathy. CARDIOVASCULAR: S1, S2 normal. No murmur, no gallop. ABDOMEN: Soft, nontender, no hepatosplenomegaly. Nontender abdomen. EXTREMITIES: No clubbing, no cyanosis, no edema. CENTRAL NERVOUS SYSTEM: Alert, oriented x 3, no focal or sensorimotor deficit. SKIN: No petechia, no rash. SPINE: Normal. LYMPHADENOPATHY: None. LABORATORY DATA: White count 13.2, hemoglobin 12.4, platelet count 181. INR 1.3. UA positive. BNP 12,000. Sodium 129, creatinine 0.7. CAT scan of the chest showed a loculated left pleural effusion. ASSESSMENT AND PLAN: 1. Loculated left pleural effusion. 2. Left upper quadrant mass. 3. Hyponatremia. 4. Atrial fibrillation on anticoagulation. 5. Pulmonary hypertension. 6. Tricuspid regurgitation. 7. Diabetes mellitus type 2. 8. Coronary artery disease. PLAN: She has a loculated left pleural effusion. There was an ill-defined mass identified on the left upper quadrant. She is ALLERGIC TO IODINE, IV CONTRAST CANNOT BE GIVEN. CAT scan of the abdomen without p.o. or IV contrast were ordered. Again an ill-defined mass was identified around the spleen with splenic infarct, etiology uncertain whether it is a mass or fluid collection in the abdomen. Discussed with Dr. Nick Colindres for aspiration of left-sided loculated effusion. A left upper quadrant mass cannot be defined, questionable cyst or mass. Ultrasound of the abdomen ordered. Pulmonary consultation with Dr. Deal requested. Will continue Lipitor 20 mg daily. Continue anticoagulation with Pradaxa 150 mg p.o. b.i.d. for atrial fibrillation. She is on doxycycline 100 mg p.o. q.12 hours and meropenem. ID following. Metoprolol 100 mg daily, MiraLax 17 mg p.o. b.i.d. Continue Aldactone 25 mg p.o. b.i.d. She has mild anemia and will do the work-up for anemia; leukocytosis, white count elevated at 15k declined to 10.5 today. Will continue IV antibiotic. I discussed with the son telephonically and updated him on the CAT scan results of the chest and abdomen. Also indicated to him that she might need a CT- guided biopsy if ultrasound showed a definitive mass in the left upper quadrant , possibility of malignancy is being ruled out . . He agreed with left-sided pleural drainage and CT-guided biopsy if needed. I discussed with the staff nurse. Nancy Chow MD cc: [id number] TT: 04/02/2017 23:05:30 chilango NELSON
[2017-04-03] MEDS: Meropenem 1g/NS 100mL IVPB 1 GM/100 ML PIGGYBACK IVPB SCH ×3 (05:37→22:22)
[2017-04-03 08:03] LABS: ADD MANUAL DIFF? NO
[2017-04-03 08:08] LABS: BASO # 0.05 K/mm3 (0.0-2.0); BASO % 0.5 % (0.0-3.0); EOS # 0.1 (0.0-0.7); EOS % 1.3 % (1.5-5.0); GRAN # 9.02 (1.4-6.5); GRAN % 86.4 % (50.0-68.0); LYMPH # 0.6 (1.2-3.4); LYMPH % 5.5 % (22.0-35.0); MEAN CELL VOLUME 88.5 fL (80.0-105.0); MEAN CORPUSCULAR HEMOGLOBIN 28.7 pg (25.0-35.0); MEAN CORPUSCULAR HGB CONC 32.5 g/dl (31.0-37.0); MEAN PLATELET VOLUME 8.8 fl (7.0-11.0); MONO # 0.7 (0.1-0.6); MONO % 6.3 % (1.0-6.0); PLATELET COUNT 205 10^3/uL (120.0-450.0); RED CELL DISTRIBUTION WIDTH 14.9 % (11.5-14.5); WHITE BLOOD COUNT 10.4 10^3/ul (4.5-11.0)
[2017-04-03 08:19] LABS: BLOOD UREA NITROGEN 16 mg/dL (7-21); CALCIUM 7.7 mg/dL (8.4-10.5); CARBON DIOXIDE 31 mmol/L (21-33); CHLORIDE 94 mmol/L (95-110); GFR AFRICAN-AMERICAN > 60; GLUCOSE,RANDOM 155 mg/dL (70-110); POTASSIUM 3.9 mmol/L (3.6-5.0); SODIUM 131 mmol/L (132-148)
[2017-04-03 08:26] LABS: IRON 36 ug/dL (45-180)
--- NOTE | 2017-04-03 08:30 | CP.PCM.PN ---
Subjective - Date & Time of Evaluation Date of Evaluation: 04/03/17 Time of Evaluation: 07:00 - Subjective Subjective: Stable on 2R. No CP or SOB. V/S noted. AF with mod. VR PE: Lungs: rhonchi Cor.: irreg., S1S2 Abd.: soft Ext.: no edema Neuro.: alert Labs noted 04/02: na+= 130. Today's labs pending. BC x2 NG at [address] Chest, A+P noted. Objective - Vital Signs/Intake and Output Vital Signs (last 24 hours): Temp Pulse Resp BP Pulse Ox 98.6 F 68 20 109/55 L 99 04/03/17 05:58 04/03/17 05:58 04/03/17 05:58 04/03/17 05:58 04/03/17 05:58 Intake and Output: 04/03/17 04/03/17 06:59 18:59 Intake Total 200 Balance 200 - Medications Medications: Current Medications Aspirin (Aspirin Chewable) 81 mg PO DAILY [facility] Last Admin: 04/02/17 09:12 Dose: 81 mg Atorvastatin Calcium (Lipitor) 20 mg PO DIN [facility] Last Admin: 04/02/17 17:41 Dose: 20 mg Dabigatran (Pradaxa) 150 mg PO BID [facility] PRN Reason: Protocol Last Admin: 04/02/17 17:41 Dose: 150 mg Doxycycline Hyclate (Doryx) 100 mg PO Q12 [facility] PRN Reason: Protocol Stop: 04/10/17 22:01 Last Admin: 04/02/17 22:03 Dose: 100 mg Furosemide (Lasix) 40 mg PO BID [facility] Last Admin: 04/02/17 17:41 Dose: 40 mg Meropenem 1g/NS 100mL IVPB (Meropenem 1g/Ns 100ml Ivpb) 1 gm in 100 mls @ 100 mls/hr IVPB Q8 [facility] PRN Reason: Protocol Stop: 04/10/17 22:01 Last Admin: 04/03/17 05:37 Dose: 100 mls/hr Insulin Human Regular (Humulin R Low) 0 units SC ACHS [facility] PRN Reason: Protocol Last Admin: 04/02/17 22:44 Dose: Not Given Metoprolol Succinate (Toprol Xl) 100 mg PO DAILY [facility] Last Admin: 04/02/17 09:22 Dose: 100 mg Polyethylene Glycol (Miralax) 17 gm PO BID [facility] Last Admin: 04/02/17 17:41 Dose: 17 gm Spironolactone (Aldactone) 25 mg PO BID [facility] Last Admin: 04/02/17 17:41 Dose: 25 mg - Labs Labs: 04/03/17 06:30 04/02/17 06:15 PT 14.2 Seconds (9.9-11.8) H 03/31/17 11:03 INR 1.31 (0.93-1.08) H 03/31/17 11:03 APTT 37.3 Seconds (23.7-30.8) H 03/31/17 11:03 Assessment and Plan - Assessment and Plan (Free Text) Assessment: SOB/CP/Shoulder pain AF with RVR Pneumonia Pleural effusion Splenic Mass: R/O neoplasm CAD/remote [place] and PCI Diabetes Falls CHF HLD Gall Stones Echo: Nl LV, Mild/Mod. MR, Mod. TR and Sev. PH Plan: Await AM labs. Continue metoprolol Reduce Lasix to 40 mg. PO Daily As per pulmonary, ID, Dr. Chow, Interventional Radiology OOB as jeremiah. Monitor: I/O, Na.+, labs, sats., etc.
--- NOTE | 2017-04-03 09:20 | PN ---
DATE: 04/03/2017 The patient was seen and examined at bedside. She appears comfortable with no respiratory distress. She does not complain of cough or sputum production. PHYSICAL EXAMINATION: VITAL SIGNS: Her temperature is 98.6, pulse 68, respirations 20, pulse oximetry is 99 on nasal cannu la, blood pressure is 109/55. LABORATORY DATA: Reviewed the patient's blood work from today. Her serum sodium is slightly reduced to 131, potassium 3.9, chloride 94. WBC is 10.4, hemoglobin of 11.7. HEAD, EARS, NOSE AND THROAT: Within normal limits. NECK: Supple with no jugular vein distention. CHEST: Symmetrical. HEART: S1, S2. No S3. Regular. LUNGS: Diminished breath sounds at both lung bases, a few rhonchi. No wheezing. GASTROINTESTINAL: Abdomen soft, nontender with no organomegaly. EXTREMITIES: No edema. CHEST: On percussion there is dullness in the left lower hemithorax. ASSESSMENT AND PLAN: The patient with a large left pleural effusion, small right pleural effusion, a lso suggestion of splenic left upper quadrant mass with infiltration of mesenteric fat. The decision on evacuation of pleural effusion will be up to her primary care physician. A.m. labs reviewed. Re viewed Dr. Kong's input is reviewed. FINAL DIAGNOSES: Large left pleural effusion, left upper quadrant mass, hyponatremia, atrial fibrill ation, pulmonary hypertension. The patient is minimally symptomatic. The case was discussed between the attending physician and Dr. Nick Colindres. Lul Lawrence MD cc: [id number] TT: 04/03/2017 09:20:10 Confirmation # [id number] Dictation # [id number] laura
[2017-04-03] MEDS: Insulin Reg-LOW-Coverage SC SCH ×4 (09:41→22:33)
[2017-04-03] MEDS: POLYETHYLENE GLYCOL 3350 17 GM/Dose PACKET PO SCH ×2 (09:41→18:54)
[2017-04-03] MEDS: Metoprolol Succinate 100 mg XL Tab PO SCH (10:27)
--- NOTE | 2017-04-03 15:26 | PN ---
DATE: 04/03/2017 The patient is in bed, seen earlier this morning. No fevers and no chills, no nausea or vomiting. PHYSICAL EXAMINATION: VITAL SIGNS: Temperature is 98, blood pressure is 120/70, respiratory rate of 16. HEENT: Unremarkable. NECK: Supple. LUNGS: Have decreased breath sounds. HEART: Normal S1, S2. ABDOMEN: Soft, nontender. LABORATORY DATA: Reveals the patient's white count is 10,000, hemoglobin of 11, platelets of 205. C hemistries are noted. BUN of 16, creatinine of 0.7, procalcitonin is 0.22. The urinalysis is noted. Microbiology reveals the blood cultures are negative. Urine cultures negative. Dr. Lawrence's progress note is reviewed from this morning. Dr. Kong's note is reviewed. Dr. Chow's history and physical examination is reviewed. The patient had a CAT scan of the chest, large left pleural effusion, partially loculated, along with a left lateral margin associated infiltrate throughout the left upper lung. CAT scan of the abdomen and pelvis is also reviewed, neoplastic process involving the superior lateral spleen suspected soft tissue density. ASSESSMENT AND PLAN: This is a 76-year-old with coronary artery disease, history of percutaneous cor onary intervention and cardiac catheterization, severe pulmonary hypertension, diabetes mellitus, cho lecystitis, atrial fibrillation, history of splenic infarct documented on CAT scan in the past. Work up for endocarditis was negative at the time. Admitted with sepsis with a left healthcare-associated possible gram-positive cocci, possible gram-negative nessa, pneumonia with a loculated pleural effusio n seen on CAT scan and a questionable mass on the CAT scan of the abdomen, day #3 of meropenem and do xycycline. Awaiting for evaluation of the pleural effusion and biopsy of the intraabdominal mass. Th e patient's procalcitonin is 0.22, which speaks against bacterial pneumonia with negative cultures an d awaiting for tissue diagnosis. Review of the orders reveals meropenem and doxycycline is active. Denver Scott MD cc: [id number] TT: 04/03/2017 15:25:53 Confirmation # [id number] Dictation # [id number] laura
--- NOTE | 2017-04-03 23:48 | CP.PCM.PN ---
Subjective - Date & Time of Evaluation Date of Evaluation: 04/03/17 Time of Evaluation: 13:00 - Subjective Subjective: HISTORY OF PRESENT ILLNESS: The patient is a 76-year-old female admitted to the hospital with difficulty in walking. She felt weak. She was discharged from [facility] when she fell at home. CAT scan of the chest showed left-sided loculated pleural effusion, ill-defined mass was identified in the left upper quadrant. She denies any fever, no chills, no rigors. She has a history of diabetes mellitus. Blood sugars are controlled with the current regimen. She also has a history of pulmonary hypertension and atrial fibrillation. She was complaining of shortness of breath also, increased for the past few days. No bleeding from any site. No weight loss. She feels fatigued and weak. CT abdomen showed mass in left upper quadrant. US of abdomen done today. ALLERGIES: IODINE CONTRAST. HOME MEDICATIONS: , Zocor, Glucophage, Lasix, aspirin, Aldactone, Pradaxa, Amaryl. PAST MEDICAL HISTORY: Sepsis, hyponatremia, atrial fibrillation, pulmonary hypertension, tricuspid regurgitation, diabetes mellitus type 2, healthcare- associated pneumonia. FAMILY HISTORY: Mother had coronary artery disease and hypertension. SOCIAL HISTORY: No history of smoking or drinking. Lives with a son. REVIEW OF SYSTEMS: As per HPI. The rest of 12-point review of systems reviewed and negative. PHYSICAL EXAMINATION: GENERAL: Comfortable in bed, in no acute distress. VITAL SIGNS: reviewed. HEENT: Normal. No lymphadenopathy. CARDIOVASCULAR: S1, S2 normal. No murmur, no gallop. ABDOMEN: Soft, nontender, no hepatosplenomegaly. Nontender abdomen. EXTREMITIES: No clubbing, no cyanosis, no edema. CENTRAL NERVOUS SYSTEM: Alert, oriented x 3, no focal or sensorimotor deficit. SKIN: No petechia, no rash. SPINE: Normal. LYMPHADENOPATHY: None. LABORATORY DATA: reviewed. ASSESSMENT AND PLAN: 1. Loculated left pleural effusion. 2. Left upper quadrant mass. 3. Hyponatremia. 4. Atrial fibrillation on anticoagulation. 5. Pulmonary hypertension. 6. Tricuspid regurgitation. 7. Diabetes mellitus type 2. 8. Coronary artery disease. 9. Severe iron deficiency PLAN: She has a loculated left pleural effusion. There was an ill-defined mass identified on the left upper quadrant. She is ALLERGIC TO IODINE, IV CONTRAST CANNOT BE GIVEN. CAT scan of the abdomen without p.o. or IV contrast were ordered. Again an ill-defined mass was identified around the spleen with splenic infarct, etiology uncertain whether it is a mass or fluid collection in the abdomen. Discussed with Dr. Nick Colindres for aspiration of left-sided loculated effusion. Ultrasound of the abdomen done today . report pending . Pulmonary consultation with Dr. Deal requested. Will continue Lipitor 20 mg daily. Continue anticoagulation with Pradaxa 150 mg p.o. b.i.d. for atrial fibrillation. She is on doxycycline 100 mg p.o. q.12 hours and meropenem. ID following. Metoprolol 100 mg daily, MiraLax 17 mg p.o. b.i.d. Continue Aldactone 25 mg p.o. b.i.d. leukocytosis, white count declining. Will continue IV antibiotic. Anemia work up showed severe iron deficiency. Stool occult ordered. GI consult Dr. Ortega requested. Nancy Chow MD Objective - Vital Signs/Intake and Output Vital Signs (last 24 hours): Temp Pulse Resp BP Pulse Ox 97.9 F 87 18 112/67 99 04/03/17 18:00 04/03/17 18:00 04/03/17 18:00 04/03/17 18:00 04/03/17 05:58 - Medications Medications: Current Medications Aspirin (Aspirin Chewable) 81 mg PO DAILY [facility] Last Admin: 04/03/17 09:41 Dose: 81 mg Atorvastatin Calcium (Lipitor) 20 mg PO DIN [facility] Last Admin: 04/03/17 17:33 Dose: 20 mg Dabigatran (Pradaxa) 150 mg PO BID [facility] PRN Reason: Protocol Last Admin: 04/03/17 17:33 Dose: 150 mg Doxycycline Hyclate (Doryx) 100 mg PO Q12 [facility] PRN Reason: Protocol Stop: 04/10/17 22:01 Last Admin: 04/03/17 22:22 Dose: 100 mg Furosemide (Lasix) 40 mg PO BID [facility] Last Admin: 04/03/17 17:32 Dose: 40 mg Meropenem 1g/NS 100mL IVPB (Meropenem 1g/Ns 100ml Ivpb) 1 gm in 100 mls @ 100 mls/hr IVPB Q8 [facility] PRN Reason: Protocol Stop: 04/10/17 22:01 Last Admin: 04/03/17 22:22 Dose: 100 mls/hr Insulin Human Regular (Humulin R Low) 0 units SC ACHS [facility] PRN Reason: Protocol Last Admin: 04/03/17 22:33 Dose: Not Given Metoprolol Succinate (Toprol Xl) 100 mg PO DAILY [facility] Last Admin: 04/03/17 10:27 Dose: 100 mg Polyethylene Glycol (Miralax) 17 gm PO BID [facility] Last Admin: 04/03/17 18:54 Dose: Not Given Spironolactone (Aldactone) 25 mg PO BID [facility] Last Admin: 04/03/17 17:33 Dose: 25 mg - Labs Labs: 04/03/17 06:30 04/03/17 06:30 PT 14.2 Seconds (9.9-11.8) H 03/31/17 11:03 INR 1.31 (0.93-1.08) H 03/31/17 11:03 APTT 37.3 Seconds (23.7-30.8) H 03/31/17 11:03
[2017-04-04] MEDS: Meropenem 1g/NS 100mL IVPB 1 GM/100 ML PIGGYBACK IVPB SCH ×3 (05:29→21:43)
--- NOTE | 2017-04-04 08:05 | CP.PCM.PN ---
Subjective - Date & Time of Evaluation Date of Evaluation: 04/04/17 Time of Evaluation: 07:00 - Subjective Subjective: Stable on 2R. No CP or SOB. V/S noted. AF with mod. VR PE: Lungs: rhonchi Cor.: irreg., S1S2 Abd.: soft Ext.: no edema Neuro.: alert Labs noted 04/03: na+= 131. Today's labs pending. BC x2 NG at [address] Chest, A+P noted. Objective - Vital Signs/Intake and Output Vital Signs (last 24 hours): Temp Pulse Resp BP Pulse Ox 97.4 F L 111 H 19 108/61 98 04/04/17 05:50 04/04/17 05:50 04/04/17 05:50 04/04/17 05:50 04/04/17 05:50 Intake and Output: 04/04/17 04/04/17 06:59 18:59 Intake Total 120 Balance 120 - Medications Medications: Current Medications Aspirin (Aspirin Chewable) 81 mg PO DAILY [facility] Last Admin: 04/03/17 09:41 Dose: 81 mg Atorvastatin Calcium (Lipitor) 20 mg PO DIN [facility] Last Admin: 04/03/17 17:33 Dose: 20 mg Dabigatran (Pradaxa) 150 mg PO BID [facility] PRN Reason: Protocol Last Admin: 04/03/17 17:33 Dose: 150 mg Doxycycline Hyclate (Doryx) 100 mg PO Q12 [facility] PRN Reason: Protocol Stop: 04/10/17 22:01 Last Admin: 04/03/17 22:22 Dose: 100 mg Furosemide (Lasix) 40 mg PO BID [facility] Last Admin: 04/03/17 17:32 Dose: 40 mg Meropenem 1g/NS 100mL IVPB (Meropenem 1g/Ns 100ml Ivpb) 1 gm in 100 mls @ 100 mls/hr IVPB Q8 [facility] PRN Reason: Protocol Stop: 04/10/17 22:01 Last Admin: 04/04/17 05:29 Dose: 100 mls/hr Insulin Human Regular (Humulin R Low) 0 units SC ACHS [facility] PRN Reason: Protocol Last Admin: 04/03/17 22:33 Dose: Not Given Metoprolol Succinate (Toprol Xl) 100 mg PO DAILY [facility] Last Admin: 04/03/17 10:27 Dose: 100 mg Polyethylene Glycol (Miralax) 17 gm PO BID [facility] Last Admin: 04/03/17 18:54 Dose: Not Given Spironolactone (Aldactone) 25 mg PO BID [facility] Last Admin: 04/03/17 17:33 Dose: 25 mg - Labs Labs: 04/03/17 06:30 04/03/17 06:30 PT 14.2 Seconds (9.9-11.8) H 03/31/17 11:03 INR 1.31 (0.93-1.08) H 03/31/17 11:03 APTT 37.3 Seconds (23.7-30.8) H 03/31/17 11:03 Assessment and Plan - Assessment and Plan (Free Text) Assessment: SOB/CP/Shoulder pain AF with RVR Pneumonia Pleural effusion Splenic Mass: R/O neoplasm CAD/remote IA and PCI Diabetes Falls CHF HLD Gall Stones Echo: Nl LV, Mild/Mod. MR, Mod. TR and Sev. PH Plan: Await AM labs. Continue metoprolol Reduce Lasix to 40 mg. PO Daily As per pulmonary, ID, Dr. Chow, Interventional Radiology-(hold Pradaxa for 2 days prior to intervention). OOB as jeremiah. Monitor: I/O, Na.+, labs, sats., etc.
--- NOTE | 2017-04-04 08:41 | PN ---
DATE: 04/04/2017 The patient was seen and examined at bedside. She states she is not short of breath. She has no cou gh and no difficulty breathing whatsoever. She is receiving diuretics in the form of Lasix and Aldac tone as well as doxycycline and meropenem for antibiotics. PHYSICAL EXAMINATION: VITAL SIGNS: Her temperature is 97.4, pulse 85, respirations 20, pulse oximetry is 98 on room air. Blood pressure is 108/61. LABORATORY DATA: There are no new labs. HEAD, EARS, NOSE AND THROAT: Within normal limits. NECK: Supple with no jugular vein distention. CHEST: Symmetrical. HEART: S1, S2. No S3. Irregular. LUNGS: Diminished breath sounds with few rhonchi. No wheezing. Dullness to percussion in the left lower hemithorax. GASTROINTESTINAL: Soft, nontender, no organomegaly. EXTREMITIES: No pedal edema. SKIN: Clear with no cyanosis or skin rashes. NEUROLOGIC: No focal deficits. As per discussion and/or yesterday's note, patient's CT scan revealed a rather large pleural effusion . However, on the chest x-ray this is, at most, moderate. CT scan often exaggerates the magnitude o f a loculated pleural effusion. This is what we are dealing with. However, there is an additional p athology in the form of an intra-abdominal mass. The patient's procalcitonin is normal. I doubt any significant infection or pneumonia. Pulmonary status is absolutely normal. She is asymptomatic. A wait biopsy results. In the interim, she will continue with antibiotics as per infectious disease. Lul Lawrence MD cc: [id number] TT: 04/04/2017 08:40:07 Confirmation # [id number] Dictation # [id number] sn
[2017-04-04] MEDS: Insulin Reg-LOW-Coverage SC SCH ×4 (10:03→21:32)
[2017-04-04] MEDS: POLYETHYLENE GLYCOL 3350 17 GM/Dose PACKET PO SCH ×2 (10:11→18:25)
--- NOTE | 2017-04-04 11:56 | PN ---
DATE: 04/04/2017 The patient is in bed, in no acute distress, nontoxic. PHYSICAL EXAMINATION: VITAL SIGNS: Temperature is 97, blood pressure is 108/60, respiratory rate 19, heart rate of 85. HEENT: Unremarkable. NECK: Supple. LUNGS: Have decreased breath sounds. HEART: Normal S1, S2. ABDOMEN: Soft, nontender. LABORATORY EXAMINATION: Reveals a white count of 10,000, hemoglobin of 11, platelets of 205. Chemis tries reveals the creatinine is 0.7. Microbiology reveals the cultures are negative. The procalcito lizzie is 0.22. CURRENT MEDICATIONS: Reveals the patient to be on p.o. doxycycline and IV meropenem. 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 Admitted with sepsis w ith a left healthcare-associated possible gram-positive cocci, possible gram-negative nessa and a locul ated pleural effusion on CAT scan and a mass on the CAT scan of the abdomen. Day #4 of meropenem and doxycycline and with a normal procalcitonin, makes the bacterial pneumonia less likely. Dr. Lul herrera's note is appreciated and Dr. Alhaji Kong's note is also reviewed. We will follow closely with you. Awaiting a decision regarding the biopsy of the mass and the loculated effusion on CAT scan. Mitali Chow states that she had discussed with Dr. Nick Colindres for aspiration of the left-sided loculate d effusion and biopsy, possible CAT scan biopsy of the mass. Denver Scott MD cc: [id number] TT: 04/04/2017 11:55:51 Confirmation # [id number] Dictation # [id number] en
[2017-04-04] MEDS: Metoprolol Succinate 100 mg XL Tab PO SCH (12:27)
--- NOTE | 2017-04-04 12:47 | US ---
HISTORY: left upper quad mass/cyst COMPARISON: None. TECHNIQUE: Sonographic evaluation of the abdomen. FINDINGS: LIVER: Measures 13 x 12 cm. Increased echogenicity of the liver parenchyma. No mass. No intrahepatic bile duct dilatation. GALLBLADDER: Multiple gallstones. COMMON BILE DUCT: Measures 3.4 mm. No stones. No dilatation. PANCREAS: Unremarkable as visualized. No mass. No ductal dilatation. RIGHT KIDNEY: Measures 9.8 x 3.9 x 4.7cm. Normal echogenicity. No calculus, mass, or hydronephrosis. LEFT KIDNEY: Measures 10.8 x 4.7 x 5.1cm. Normal echogenicity. No calculus, mass, or hydronephrosis. SPLEEN: Normal in size and contour. No mass. AORTA: No aneurysmal dilatation. IVC: Unremarkable. OTHER FINDINGS: Bilateral pleural effusions IMPRESSION: Mild fatty infiltration of the liver. Multiple gallstones.
--- NOTE | 2017-04-04 15:24 | PN ---
DATE: 04/04/2017 DATE OF EVALUATION: 04/04/2017. SUBJECTIVE: The patient is comfortable, in no acute distress. Denies any chest pain. No shortness of breath, no abdominal pain, no nausea, no vomiting. She has ill-defined left-sided loculated effusion. CAT scan of the abdomen also showed left upper quadrant mass. The scan was noncontrast, without p.o. or IV contrast. Ultrasound of the abdomen was done to confirm the cystic or solid mass. Ultrasound of the abdomen does not show any mass in the left upper quadrant. She is currently on IV antibiotic for left-sided loculated effusion. REVIEW OF SYSTEMS: As per HPI. The rest of the 12-point review of systems was reviewed and negative. PHYSICAL EXAMINATION: GENERAL: Comfortable in bed, in no acute distress. VITAL SIGNS: Temperature 98.7, heart rate is 80 per minute, blood pressure 130/ 70. HEENT: Pallor positive. The rest of the HEENT exam is normal. CHEST: Air entry present, equal bilateral. No added sound. CARDIOVASCULAR: S1, S2 normal. No murmur, no gallop. ABDOMEN: Soft, nontender, no hepatosplenomegaly. EXTREMITIES: No edema. CENTRAL NERVOUS SYSTEM: Alert, oriented x 3. No focal or sensorimotor deficit. LABORATORY DATA: White count 10.4, hemoglobin 11.7, glucose 185. Coags normal. UA: Small leukocyte esterase. MEDICATIONS: Aspirin 81 mg daily, Lipitor 20 mg daily, Pradaxa 150 mg p.o. b.i.d., doxycycline 100 mg p.o. q.12 hours, Lasix 40 mg daily, meropenem, metoprolol 100 mg daily, MiraLax 17 grams p.o. b.i.d., Aldactone 25 mg p.o. b.i.d. ASSESSMENT: Loculated left pleural effusion, questionable left upper quadrant mass, hyponatremia, atrial fibrillation, pulmonary hypertension, diabetes mellitus type 2, coronary artery disease, severe iron deficiency. She has loculated effusion on the left side. As per pulmonary note by Dr. Lawrence she does not need aspiration. I will leave the decision of aspiration of left-sided effusion as per pulmonary team and Dr. James. She had a CAT scan of the abdomen done without contrast, which showed left upper quadrant mass. Ultrasound of the abdomen did not show any mass lesion in the left upper quadrant. GI consultation with Dr. Ortega requested. Discussed with Dr. Ortega. MRI upper abdomen to further characterize the mass. It looks like splenic infarction or hematoma around spleen. There is history prior trauma on left upper abdomen, she hit herself against some objects at home. She has severe iron deficiency, which might be related to occult gastrointestinal bleed because of anticoagulation use for atrial fibrillation. Stool occult blood ordered yesterday, still to be sent. She will need IV iron to replete blood iron stores. The son is at bedside. Discussed with the son the status. CAD : stable. no issues. Nancy Chow MD cc: [id number] TT: 04/04/2017 15:24:02 Confirmation # [id number] Dictation # [id number] chilango NELSON
--- NOTE | 2017-04-05 00:40 | CON ---
DATE: 04/04/2017 SUBJECTIVE: This patient was seen and evaluated earlier. This 76-year-old patient admitted for complaints of difficult and weak walking, weakness, history of fall. The patient was also complaining of shortness of breath. The patient was found to have atrial fibrillation with rapid ventricular response, which is controlled with Cardizem. The patient was found to have a left lower lobe pneumonia with effusion. Imaging studies also revealed some questionable soft tissue. The CAT scan showed some questionable splenic left upper quadrant mass. GI consultation was requested to evaluate this. PAST MEDICAL HISTORY: The patient was in the hospital in the past with a history of pulmonary hypertension and tricuspid regurgitation, hyponatremia, history of abnormal LFTs, improved, gallstones, diabetes mellitus. FAMILY HISTORY: Noncontributory. SOCIAL HISTORY: Denies smoking, no alcohol. REVIEW OF SYSTEMS: Positive as above. Other systems reviewed and negative. PHYSICAL EXAMINATION: GENERAL: The patient is lying on the bed. VITAL SIGNS: Temperature is 97.4, blood pressure 131/67, O2 Saturation 99, respirations 20. HEENT: Atraumatic, anicteric. NECK: Supple. HEART: S1, S2 heard. LUNGS: Bilateral air entry present, reduced in the base. ABDOMEN: Soft. There is no mass palpable. No tenderness. EXTREMITIES: No cyanosis, no clubbing. NEUROLOGIC: Alert, oriented. Moves all the extremities. LABORATORY DATA: Hemoglobin 11.7, hematocrit 36, WBC is 10.4, platelets 205. Chemistry is essentially unremarkable. LFTs are essentially unremarkable. The CT scan of the abdomen and pelvis, CAT scan, which is done with contrast. revealed a low attenuation in the spleen. Also, found to have soft tissue density arising from the superolateral aspect of the spleen. There is suspicion of abnormal of the superior and lateral aspect of the spleen extending into the adjacent mesenteric fat. IMPRESSION: A 76-year-old patient admitted with a near syncopal episode, weakness and the patient was found to have pneumonia, atrial fibrillation with rapid ventricular response, controlled. The patient's imaging studies also showed low attenuation lesion in the spleen. In addition, also soft tissue density erythema of the superolateral aspect of the spleen extending mesenteric fat was noticed. IMPRESSION: Splenic lesion, low attenuation area and soft tissue density areas arising from the superolateral aspect of the spleen. Rule out neoplastic process, rule out hematoma. RECOMMENDATIONS: 1. Followup of the hemoglobin and hematocrit. 2. We will get an MRI of the abdomen with attention to the splint to further evaluate. RECOMMENDATION: 1. Followup of the hematocrit. 2. MRI to further evaluate. His other comorbidities include history of atrial fibrillation, pneumonia, pleural effusion. Thank you very much for allowing us to participate in the care of the patient. Marleen Ortega MD cc: [id number] TT: 04/05/2017 00:38:57 Confirmation # [id number] Dictation # [id number] eladio NELSON
[2017-04-05] MEDS: Meropenem 1g/NS 100mL IVPB 1 GM/100 ML PIGGYBACK IVPB SCH ×3 (05:01→22:13)
[2017-04-05] MEDS: Insulin Reg-LOW-Coverage SC SCH ×4 (07:55→22:13)
--- NOTE | 2017-04-05 08:36 | PN ---
DATE: 04/05/2017 SUBJECTIVE: The patient appears comfortable this morning. She is not short of breath at rest. OBJECTIVE: VITAL SIGNS: Temperature is 98.4, pulse on the monitor 101, respiratory rate 17 , blood pressure 103/70. Oxygen saturation on nasal cannula is 100%. HEENT: Normocephalic, atraumatic. NECK: No JVD. CARDIOVASCULAR: Systolic ejection murmur at the lower left sternal border. Questionable S3 gallop. LUNGS: Decreased breath sounds at the bases with crackles--left worse than right. No rhonchi. No wheezing. EXTREMITIES: Mild edema. No cyanosis, no clubbing. Calves are nontender to palpation. GASTROINTESTINAL: Abdomen is soft, nontender, nondistended. Bowel sounds are positive. SKIN: No acute rash. NEUROLOGIC: Limited at the present time. IMPRESSION: 1. Recurrent congestive heart failure. 2. Chronic atrial fibrillation. 3. Chronic loculated left pleural effusion. 4. Coronary artery disease. 5. Valvular heart disease. 6. Rule out left upper quadrant mass. PLAN: The patient appears comfortable this morning. She is not short of breath at rest. She states she is feeling much better overall. Oxygen saturation on nasal cannula is now 100%. I would continue with the treatment for congestive heart failure and cardiac arrhythmias as per cardiology. Input by Dr. Kong is noted. There is also an MRI of the abdomen ordered for today. GI evaluation is noted. Clinical status of the patient appears significantly improved - compared to the initial presentation. I will discuss the above, and the case in entirety, with Dr. James later this morning. I have also discussed the case with Dr. Lawrence at length. Dev Deal MD cc: [id number] TT: 04/05/2017 08:36:06 Confirmation # [id number] Dictation # [id number] eladio NELSON
--- NOTE | 2017-04-05 08:52 | CP.PCM.PN ---
Subjective - Date & Time of Evaluation Date of Evaluation: 04/05/17 Time of Evaluation: 07:00 - Subjective Subjective: Stable on 2R. No CP or SOB. V/S noted. AF with rapid VR at times (130s) PE: Lungs: rhonchi Cor.: irreg., S1S2 Abd.: soft Ext.: no edema Neuro.: alert BC x2 NG at [address] Chest, A+P noted. Objective - Vital Signs/Intake and Output Vital Signs (last 24 hours): Temp Pulse Resp BP Pulse Ox 98 F 73 20 102/51 L 97 04/05/17 06:00 04/05/17 06:00 04/05/17 06:00 04/05/17 06:00 04/05/17 06:00 Intake and Output: 04/05/17 04/05/17 06:59 18:59 Intake Total 200 Balance 200 - Medications Medications: Current Medications Aspirin (Aspirin Chewable) 81 mg PO DAILY [facility] Last Admin: 04/04/17 10:11 Dose: 81 mg Atorvastatin Calcium (Lipitor) 20 mg PO DIN [facility] Last Admin: 04/04/17 18:25 Dose: 20 mg Dabigatran (Pradaxa) 150 mg PO BID [facility] PRN Reason: Protocol Last Admin: 04/04/17 18:25 Dose: 150 mg Doxycycline Hyclate (Doryx) 100 mg PO Q12 [facility] PRN Reason: Protocol Stop: 04/10/17 22:01 Last Admin: 04/04/17 21:43 Dose: 100 mg Furosemide (Lasix) 40 mg PO DAILY [facility] Last Admin: 04/04/17 10:12 Dose: 40 mg Meropenem 1g/NS 100mL IVPB (Meropenem 1g/Ns 100ml Ivpb) 1 gm in 100 mls @ 100 mls/hr IVPB Q8 [facility] PRN Reason: Protocol Stop: 04/10/17 22:01 Last Admin: 04/05/17 05:01 Dose: 100 mls/hr Insulin Human Regular (Humulin R Low) 0 units SC ACHS [facility] PRN Reason: Protocol Last Admin: 04/05/17 07:55 Dose: 1 units Metoprolol Succinate (Toprol Xl) 100 mg PO DAILY [facility] Last Admin: 04/04/17 12:27 Dose: 100 mg Polyethylene Glycol (Miralax) 17 gm PO BID [facility] Last Admin: 04/04/17 18:25 Dose: 17 gm Spironolactone (Aldactone) 25 mg PO BID [facility] Last Admin: 04/04/17 18:25 Dose: 25 mg - Labs Labs: 04/03/17 06:30 04/03/17 06:30 PT 14.2 Seconds (9.9-11.8) H 03/31/17 11:03 INR 1.31 (0.93-1.08) H 03/31/17 11:03 APTT 37.3 Seconds (23.7-30.8) H 03/31/17 11:03 Assessment and Plan - Assessment and Plan (Free Text) Assessment: SOB/CP/Shoulder pain AF with RVR Pneumonia Pleural effusion Splenic Mass: R/O neoplasm CAD/remote [place] and PCI Diabetes Falls CHF HLD Gall Stones Echo: Nl LV, Mild/Mod. MR, Mod. TR and Sev. PH Plan: Increase metoprolol 150/day As per pulmonary, ID, Dr. Chow, Interventional Radiology-(hold Pradaxa for 2 days prior to intervention). OOB as jeremiah. Monitor: I/O, Na.+, labs, sats., etc.
[2017-04-05] MEDS: POLYETHYLENE GLYCOL 3350 17 GM/Dose PACKET PO SCH ×2 (09:53→17:25)
--- NOTE | 2017-04-05 14:58 | MRI ---
PROCEDURE: MRI Abdomen without contrast HISTORY: Splenic abnormality. Compare to prior MRI COMPARISON: 12/03/2016 TECHNIQUE: Multisequence, multiplanar MR images of the abdomen without gadolinium contrast enhancement. FINDINGS: LIVER: Unremarkable. GALLBLADDER: Multiple gallstones SPLEEN: The splenic abnormality seen previously have decreased in size. There is a focal area of high signal intensity on T2 weighted imaging that extends beyond the border of the spleen. 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 The large area of abnormal signal intensity seen in the anterior 1/3 of the spleen is no longer seen. The spleen is otherwise normal in size. ADRENALS: Unremarkable. KIDNEYS: Unremarkable. PANCREAS: Severe atrophy of the pancreas AORTA: No aneurysm. ASCITES: None. PERITONEUM: Unremarkable. LYMPH NODES: Unremarkable. OTHER FINDINGS: There is a loculated pleural effusion at the left lung base IMPRESSION: Decreased size of splenic abnormalities compared to study dated 12/03/2016.
--- NOTE | 2017-04-05 15:37 | PN ---
DATE: 04/05/2017 The patient is in bed, in no acute distress, nontoxic. PHYSICAL EXAMINATION: VITAL SIGNS: Temperature is 97, blood pressure is 107/70, respiratory rate of 16. HEENT: Unremarkable. NECK: Supple. LUNGS: Have decreased breath sounds. HEART: Normal S1, S2. ABDOMEN: Soft, nontender. LABORATORY EXAMINATION: Reveals the patient's white count of 10,000, hemoglobin of 11, platelets of 205. Creatinine is 0.7. Urinalysis is noted. Microbiology reveals the blood cultures are negative, urine cultures are negative. ASSESSMENT AND PLAN: A 76-year-old female, coronary artery disease, percutaneous coronary interventi on, cardiac catheterization, severe pulmonary hypertension, diabetes mellitus, cholecystitis, atrial fibrillation, history of splenic infarct. Admitted with sepsis with left-sided healthcare associated possible gram-positive cocci, possible gram-negative nessa, loculated pleural effusion. Day #5 of rosendo openem and doxycycline. The patient is scheduled to have MRI of the abdomen. Dr. Deal's note is reviewed and appreciated. We will make further recommendations. On doxycycline, meropenem. Denver Scott MD cc: [id number] TT: 04/05/2017 15:36:29 Confirmation # [id number] Dictation # [id number] en
[2017-04-05] MEDS ORDERED: Metoprolol Succinate 50 mg XL Tab PO ONE (16:00)
--- NOTE | 2017-04-05 16:33 | PN ---
DATE: 04/05/2017 Seen and examined at the bedside earlier today. The patient is awaiting to go for MRI. She denies a ny shortness of breath or chest pain. No acute overnight events. The patient with no new complaints . VITAL SIGNS: Temperature is 97.4, blood pressure is 107/71, pulse is 56, respirations 18, 97% on O2. LABORATORY DATA: Only labs noted is POC glucose 168. PHYSICAL EXAMINATION: HEENT: Sclerae anicteric. NECK: Supple. CARDIAC: S1, S2. LUNGS: Sounds with decreased breath sounds at the bases with positive crackles. No wheezing. ABDOMEN: With bowel sounds, soft, not distended, nontender on palpation. EXTREMITIES: Mild edema. ASSESSMENT AND PLAN: Recurrent congestive heart failure. She also has chronic atrial fibrillation, coronary artery disease, history of pulmonary hypertension and abnormal LFTs. The patient had a near syncopal episode, abnormal CT scan showing splenic lesion, rule out any neoplastic process or rule o ut hematoma. CT scan was done, again reviewed with radiologist. The patient is going to have an MRI for further evaluation of this area. Continue current treatment for now. The patient is on Pradaxa , aspirin, oral antibiotics of doxycycline, IV meropenem. We will continue the patient also on bowel regimen of MiraLax and Aldactone. Follow up the MRI report. The patient was seen and case discusse d with Dr. Ortega. Jemma TAPIA cc: [phone] TT: 04/05/2017 16:32:27 Confirmation # [id number] Dictation # [id number] eladio
--- NOTE | 2017-04-05 17:48 | PN ---
DATE: 04/05/2017 SUBJECTIVE: The patient has no complaints of any chest pain or shortness of breath, no headaches or dizziness. PHYSICAL EXAMINATION: VITAL SIGNS: Temperature is 97.4, pulse is 56, blood pressure is 107/71, respirations 18. GENERAL: The patient is comfortable, in no acute distress. HEENT: Anicteric sclerae. Moist mucosa. NECK: No JVD or adenopathy. CARDIAC: S1/S2. No murmurs. No rubs. Regular. RESPIRATORY: Clear to auscultation bilaterally. No wheezes, rales, or rhonchi. Good air entry. ABDOMEN: Bowel sounds are positive, soft, nontender, and nondistended. EXTREMITIES: No edema. Has 1+ pulses. LABORATORY DATA: Creatinine 0.7. Sodium is 131. Abdominal shows a decrease in size of splenic abnormalities compared to prior date. ASSESSMENT: 1. Left-sided pleural effusion with possible loculation. 2. Delirium. 3. Hyponatremia. 4. Atrial fibrillation, on anticoagulation. 5. Pulmonary hypertension. 6. Tricuspid regurgitation. 7. Diabetes type 2. 8. Coronary artery disease. 9. Splenic abnormality. PLAN: The patient is on Aldactone, which she is going to continue. She is going to continue with do xycycline for antibiotics. She is on Lasix daily. She is on metoprolol. The patient is on meropenem for antibiotics. Blood cultures and urine cultures have been negative. The patient is going to con tinue with Pradaxa for anticoagulation. She is currently comfortable. Ben James MD cc: [phone] TT: 04/05/2017 17:47:32 Confirmation # [id number] Dictation # [id number] ln
[2017-04-05 20:17] LABS: BODY FLUID TYPE PLEURAL
[2017-04-05 20:35] LABS: BF GROSS APPEARANCE TURBID (CLEAR)
[2017-04-05 20:36] LABS: BODY FLUID TOTAL COUNT 100 (0-0)
--- NOTE | 2017-04-05 21:51 | PN ---
DATE: 04/05/2017 ADDENDUM This is an addendum to the GI progress report dictated by Jemma Ricks APN. The patient denies any a bdominal pain. On exam, the abdomen is soft. There is no tenderness. No mass. I did discuss with Dr. Coronado regarding the previous radiological studies with specific attention to the splenic lesion. The previous MRIs and the CAT scans were reviewed. The repeat MRI was compared with the previous s tudies. The recent MRI study appears to have a decrease in the size of the splenic lesion. With el se attention is more suggestive of hematoma rather than a neoplastic lesion. It appears to have impr arturo. The large area of abnormal signal density seen in the anterior one-third of the spleen was no longer seen. The patient is on Pradaxa. The concern now is in view of this splenic hematoma, probably contained r upture now more organized. anticoagulant could be used very cautiously in this setting. Histo ry of inadvertent fall or local trauma could be the contributory factor to the splenic lesion. We wi ll discuss with Dr. James and also with the psychologist experimental regarding this. The patient also has a history of gallstones and LFTs have been normal, remains asymptomatic. Other comorbidities are CHF, atrial fibrillation, pneumonia and pleural effusion. Continue with the presen t management. Thank you very much for allowing us to participate in the care of the patient. Marleen Ortega MD cc: [phone] TT: 04/05/2017 21:50:27 Confirmation # [id number] Dictation # [id number] mn
--- NOTE | 2017-04-05 23:14 | CP.PCM.PN ---
Subjective - Date & Time of Evaluation Date of Evaluation: 04/05/17 Time of Evaluation: 17:00 - Subjective Subjective: 04/05/2017 Subjective: She is comfortable. No nausea vomiting. No abdominal pain. CT abdomen showed mass in left upper quadrant. US of abdomen did not show any lesion. She also has loculated pleural effusion on left side. No chest pain. MRI abdomen done today. ALLERGIES: IODINE CONTRAST. HOME MEDICATIONS: , Zocor, Glucophage, Lasix, aspirin, Aldactone, Pradaxa, Amaryl. PAST MEDICAL HISTORY: Sepsis, hyponatremia, atrial fibrillation, pulmonary hypertension, tricuspid regurgitation, diabetes mellitus type 2, healthcare- associated pneumonia. FAMILY HISTORY: Mother had coronary artery disease and hypertension. SOCIAL HISTORY: No history of smoking or drinking. Lives with a son. REVIEW OF SYSTEMS: As per HPI. The rest of 12-point review of systems reviewed and negative. PHYSICAL EXAMINATION: GENERAL: Comfortable in bed, in no acute distress. VITAL SIGNS: reviewed. HEENT: Normal. No lymphadenopathy. CARDIOVASCULAR: S1, S2 normal. No murmur, no gallop. ABDOMEN: Soft, nontender, no hepatosplenomegaly. Nontender abdomen. EXTREMITIES: No clubbing, no cyanosis, no edema. CENTRAL NERVOUS SYSTEM: Alert, oriented x 3, no focal or sensorimotor deficit. SKIN: No petechia, no rash. SPINE: Normal. LYMPHADENOPATHY: None. LABORATORY DATA: reviewed. ASSESSMENT AND PLAN: 1. Loculated left pleural effusion. 2. Left upper quadrant mass. 3. Hyponatremia. 4. Atrial fibrillation on anticoagulation. 5. Pulmonary hypertension. 6. Tricuspid regurgitation. 7. Diabetes mellitus type 2. 8. Coronary artery disease. 9. Severe iron deficiency PLAN: 1. She has a loculated left pleural effusion. Pulmonary following. 2. There was an ill-defined mass identified on the left upper quadrant. MRI of abdomen done today showed decrease in size of the lesion around the spleen. It is more consistent with hematoma. I would recommend follow up imaging in 3-6 months to assess the size of the lesion. 3. Iron deficiency anemia: She is on pradaxa for A-Fib. She might have occult GI bleed. iron repletion PO/IV. 4. DM II : mgm as per Dr. James. Discussed with Dr. Haddad, Dr. James. Nancy Chow MD Objective - Vital Signs/Intake and Output Vital Signs (last 24 hours): Temp Pulse Resp BP Pulse Ox 97.6 F 110 H 20 99/67 L 97 04/05/17 18:00 04/05/17 18:00 04/05/17 18:00 04/05/17 18:00 04/05/17 06:00 - Medications Medications: Current Medications Aspirin (Aspirin Chewable) 81 mg PO DAILY [facility] Last Admin: 04/05/17 09:53 Dose: 81 mg Atorvastatin Calcium (Lipitor) 20 mg PO DIN [facility] Last Admin: 04/05/17 17:26 Dose: 20 mg Dabigatran (Pradaxa) 150 mg PO BID [facility] PRN Reason: Protocol Last Admin: 04/05/17 17:25 Dose: 150 mg Doxycycline Hyclate (Doryx) 100 mg PO Q12 [facility] PRN Reason: Protocol Stop: 04/10/17 22:01 Last Admin: 04/05/17 22:12 Dose: 100 mg Furosemide (Lasix) 40 mg PO DAILY [facility] Last Admin: 04/05/17 09:53 Dose: 40 mg Meropenem 1g/NS 100mL IVPB (Meropenem 1g/Ns 100ml Ivpb) 1 gm in 100 mls @ 100 mls/hr IVPB Q8 [facility] PRN Reason: Protocol Stop: 04/10/17 22:01 Last Admin: 04/05/17 22:13 Dose: 100 mls/hr Insulin Human Regular (Humulin R Low) 0 units SC ACHS [facility] PRN Reason: Protocol Last Admin: 04/05/17 22:13 Dose: Not Given Metoprolol Succinate (Toprol Xl) 100 mg PO DAILY [facility] Last Admin: 04/04/17 12:27 Dose: 100 mg Metoprolol Tartrate (Lopressor) 75 mg PO BID [facility] Polyethylene Glycol (Miralax) 17 gm PO BID [facility] Last Admin: 04/05/17 17:25 Dose: 17 gm Spironolactone (Aldactone) 25 mg PO BID [facility] Last Admin: 04/05/17 17:26 Dose: 25 mg - Labs Labs: 04/03/17 06:30 04/03/17 06:30 PT 14.2 Seconds (9.9-11.8) H 03/31/17 11:03 INR 1.31 (0.93-1.08) H 03/31/17 11:03 APTT 37.3 Seconds (23.7-30.8) H 03/31/17 11:03
[2017-04-06] MEDS: Meropenem 1g/NS 100mL IVPB 1 GM/100 ML PIGGYBACK IVPB SCH ×3 (05:19→21:44)
[2017-04-06 06:38] LABS: BLOOD UREA NITROGEN 20 mg/dL (7-21); CALCIUM 7.8 mg/dL (8.4-10.5); CARBON DIOXIDE 30 mmol/L (21-33); CHLORIDE 94 mmol/L (95-110); GFR AFRICAN-AMERICAN > 60; GLUCOSE,RANDOM 163 mg/dL (70-110); POTASSIUM 4.1 mmol/L (3.6-5.0); SODIUM 128 mmol/L (132-148)
[2017-04-06] MEDS: Insulin Reg-LOW-Coverage SC SCH ×4 (08:10→22:00)
--- NOTE | 2017-04-06 08:38 | CP.PCM.PN ---
Subjective - Date & Time of Evaluation Date of Evaluation: 04/06/17 Time of Evaluation: 07:00 - Subjective Subjective: Stable on 2R. No CP or SOB. S/P thoracentesis V/S noted. AF with mod VR. PE: Lungs: rhonchi Cor.: irreg., S1S2 Abd.: soft Ext.: no edema Neuro.: alert BC x2 NG at [address] Chest, A+P noted. MRI noted. Splenic hematoma, smaller Objective - Vital Signs/Intake and Output Vital Signs (last 24 hours): Temp Pulse Resp BP Pulse Ox 97.4 F L 103 H 20 95/62 L 99 04/06/17 06:00 04/06/17 06:00 04/06/17 06:00 04/06/17 06:00 04/06/17 06:00 Intake and Output: 04/06/17 04/06/17 06:59 18:59 Intake Total 100 Balance 100 - Medications Medications: Current Medications Aspirin (Aspirin Chewable) 81 mg PO DAILY [facility] Last Admin: 04/05/17 09:53 Dose: 81 mg Atorvastatin Calcium (Lipitor) 20 mg PO DIN [facility] Last Admin: 04/05/17 17:26 Dose: 20 mg Dabigatran (Pradaxa) 150 mg PO BID [facility] PRN Reason: Protocol Last Admin: 04/05/17 17:25 Dose: 150 mg Doxycycline Hyclate (Doryx) 100 mg PO Q12 [facility] PRN Reason: Protocol Stop: 04/10/17 22:01 Last Admin: 04/05/17 22:12 Dose: 100 mg Furosemide (Lasix) 40 mg PO DAILY [facility] Last Admin: 04/05/17 09:53 Dose: 40 mg Meropenem 1g/NS 100mL IVPB (Meropenem 1g/Ns 100ml Ivpb) 1 gm in 100 mls @ 100 mls/hr IVPB Q8 [facility] PRN Reason: Protocol Stop: 04/10/17 22:01 Last Admin: 04/06/17 05:19 Dose: 100 mls/hr Insulin Human Regular (Humulin R Low) 0 units SC ACHS [facility] PRN Reason: Protocol Last Admin: 04/06/17 08:10 Dose: 1 units Metoprolol Tartrate (Lopressor) 75 mg PO BID [facility] Polyethylene Glycol (Miralax) 17 gm PO BID [facility] Last Admin: 04/05/17 17:25 Dose: 17 gm Spironolactone (Aldactone) 25 mg PO BID [facility] Last Admin: 04/05/17 17:26 Dose: 25 mg - Labs Labs: 04/03/17 06:30 04/06/17 06:00 PT 14.2 Seconds (9.9-11.8) H 03/31/17 11:03 INR 1.31 (0.93-1.08) H 03/31/17 11:03 APTT 37.3 Seconds (23.7-30.8) H 03/31/17 11:03 Assessment and Plan - Assessment and Plan (Free Text) Assessment: SOB/CP/Shoulder pain AF with RVR Pneumonia Pleural effusion Splenic Mass: R/O hematoma CAD/remote [place] and PCI Diabetes Falls CHF HLD Gall Stones Echo: Nl LV, Mild/Mod. MR, Mod. TR and Sev. PH Plan: Continue metoprolol 75 BID Hold Lasix, spironolactone Probably d/c Pradaxa. Will d/w you. F/U on pl. fluid studies As per pulmonary, ID, Dr. Chow, Interventional Radiology. OOB as jeremiah. Monitor: I/O, Na.+, labs, sats., etc.
[2017-04-06] MEDS: POLYETHYLENE GLYCOL 3350 17 GM/Dose PACKET PO SCH ×2 (10:26→17:52)
[2017-04-06] MEDS ORDERED: Sodium Chloride 0.9% 500 ML IV STA (10:30)
--- NOTE | 2017-04-06 12:21 | US ---
PROCEDURE: Ultrasound guided left thoracentesis. CLINICAL HISTORY: Complex left pleural effusion. Shortness of breath. Evaluate for malignant or infectious etiologies. PHYSICIAN(S): Nick Colindres MD. TECHNIQUE: The relative risks and indications of the procedure were explained to the patient and consent obtained. The patient was placed in a sitting position on the stretcher and sonography of the right chest performed. This revealed a small to moderate complex leftpleural effusion. A right posterolateral intercostal approach was selected and the area prepped and draped usual sterile fashion. 1% Xylocaine was used to anesthetize the skin and soft tissues. A 7 [place] thoracentesis catheter was trocared into the left pleural cavity and 200 ccof creamy puente fluid aspirated. Specimens were sent to the lab. IMPRESSION: 1. Ultrasound guided left thoracentesis. 200cc of creamy tanfluid were aspirated. The appropriate labs were sent.
--- NOTE | 2017-04-06 15:15 | CP.PCM.PN ---
Subjective - Date & Time of Evaluation Date of Evaluation: 04/06/17 Time of Evaluation: 09:25 - Subjective Subjective: S&E earlier today. Had MRI yesterday and splenic abnormality decrease in size, chronic hematoma, abnormal signal not seen on this study otherwise reported as normal. Patient no new complaints or overnight issues. Had BM this am, no bleeding reported. Objective - Vital Signs/Intake and Output Vital Signs (last 24 hours): Temp Pulse Resp BP Pulse Ox 97.8 F 78 18 108/54 L 99 04/06/17 12:00 04/06/17 12:00 04/06/17 12:00 04/06/17 12:00 04/06/17 06:00 Intake and Output: 04/06/17 04/06/17 06:59 18:59 Intake Total 100 300 Output Total 100 Balance 100 200 - Medications Medications: Current Medications Aspirin (Aspirin Chewable) 81 mg PO DAILY [facility] Last Admin: 04/06/17 10:26 Dose: 81 mg Atorvastatin Calcium (Lipitor) 20 mg PO DIN [facility] Last Admin: 04/05/17 17:26 Dose: 20 mg Dabigatran (Pradaxa) 150 mg PO BID [facility] PRN Reason: Protocol Last Admin: 04/05/17 17:25 Dose: 150 mg Doxycycline Hyclate (Doryx) 100 mg PO Q12 [facility] PRN Reason: Protocol Stop: 04/10/17 22:01 Last Admin: 04/06/17 10:26 Dose: 100 mg Furosemide (Lasix) 40 mg PO DAILY [facility] Last Admin: 04/05/17 09:53 Dose: 40 mg Meropenem 1g/NS 100mL IVPB (Meropenem 1g/Ns 100ml Ivpb) 1 gm in 100 mls @ 100 mls/hr IVPB Q8 [facility] PRN Reason: Protocol Stop: 04/10/17 22:01 Last Admin: 04/06/17 13:54 Dose: 100 mls/hr Insulin Human Regular (Humulin R Low) 0 units SC ACHS [facility] PRN Reason: Protocol Last Admin: 04/06/17 12:30 Dose: 3 units Metoprolol Tartrate (Lopressor) 75 mg PO BID [facility] Last Admin: 04/06/17 10:20 Dose: Not Given Polyethylene Glycol (Miralax) 17 gm PO BID [facility] Last Admin: 04/06/17 10:26 Dose: 17 gm Spironolactone (Aldactone) 25 mg PO BID [facility] Last Admin: 04/05/17 17:26 Dose: 25 mg - Labs Labs: 04/03/17 06:30 04/06/17 06:00 PT 14.2 Seconds (9.9-11.8) H 03/31/17 11:03 INR 1.31 (0.93-1.08) H 03/31/17 11:03 APTT 37.3 Seconds (23.7-30.8) H 03/31/17 11:03 - Constitutional Appears: No Acute Distress - Head Exam Head Exam: NORMOCEPHALIC - Eye Exam Eye Exam: Normal appearance, PERRL. absent: Scleral icterus - ENT Exam ENT Exam: Mucous Membranes Moist - Neck Exam Neck Exam: Normal Inspection - Respiratory Exam Respiratory Exam: NORMAL BREATHING PATTERN. absent: Respiratory Distress - Cardiovascular Exam Cardiovascular Exam: +S1, +S2 - GI/Abdominal Exam GI & Abdominal Exam: Soft, Normal Bowel Sounds. absent: Guarding, Tenderness, Rebound - Extremities Exam Extremities Exam: absent: Calf Tenderness, Pedal Edema - Neurological Exam Neurological Exam: Alert, Awake, Oriented x3 - Skin Skin Exam: Dry, Warm Assessment and Plan - Assessment and Plan (Free Text) Assessment: ASSESSMENT: Recurrent CHF CHronic Atrial Fibrillation Left sided Pleural effusion, s/p thorocentesis Chronic Splenic hematoma, MRI done, no reproted finding of neoplasm Near syncopy PLAN: continue Miralax, hold for stools >2/day diet as tolerated on Pradaxa, Dr. Ortega to discuss w/ Dr. James risks vs benefit bleeding Aspirin On IV antibiotics, oral Doxcycline as per ID Seen and case discussed with Dr. Ortega.
--- NOTE | 2017-04-06 17:45 | RAD ---
HISTORY: follow up COMPARISON: 03/31/2017 TECHNIQUE: Chest PA and lateral FINDINGS: LUNGS: There are persistent left lower lobe and left apical infiltrates and linear atelectasis in the left mid lung. The right lung is clear PLEURA: No significant pleural effusion identified. No pneumothorax apparent. CARDIOVASCULAR: Normal. OSSEOUS STRUCTURES: No significant abnormalities. VISUALIZED UPPER ABDOMEN: Normal. OTHER FINDINGS: None. IMPRESSION: There are persistent left lower lobe and left apical infiltrates and linear atelectasis in the left mid lung. The right lung is clear
--- NOTE | 2017-04-06 23:29 | CP.PCM.PN ---
Subjective - Date & Time of Evaluation Date of Evaluation: 04/06/17 Time of Evaluation: 09:25 - Subjective Subjective: weakness Objective - Vital Signs/Intake and Output Vital Signs (last 24 hours): Temp Pulse Resp BP Pulse Ox 97.9 F 106 H 20 111/69 99 04/06/17 23:26 04/06/17 23:26 04/06/17 23:26 04/06/17 23:26 04/06/17 06:00 Intake and Output: 04/06/17 04/07/17 18:59 06:59 Intake Total 300 Output Total 100 Balance 200 - Medications Medications: Current Medications Aspirin (Aspirin Chewable) 81 mg PO DAILY [facility] Last Admin: 04/06/17 10:26 Dose: 81 mg Atorvastatin Calcium (Lipitor) 20 mg PO DIN [facility] Last Admin: 04/06/17 17:52 Dose: 20 mg Dabigatran (Pradaxa) 150 mg PO BID [facility] PRN Reason: Protocol Last Admin: 04/05/17 17:25 Dose: 150 mg Doxycycline Hyclate (Doryx) 100 mg PO Q12 [facility] PRN Reason: Protocol Stop: 04/10/17 22:01 Last Admin: 04/06/17 21:44 Dose: 100 mg Furosemide (Lasix) 40 mg PO DAILY [facility] Last Admin: 04/05/17 09:53 Dose: 40 mg Meropenem 1g/NS 100mL IVPB (Meropenem 1g/Ns 100ml Ivpb) 1 gm in 100 mls @ 100 mls/hr IVPB Q8 [facility] PRN Reason: Protocol Stop: 04/10/17 22:01 Last Admin: 04/06/17 21:44 Dose: 100 mls/hr Insulin Human Regular (Humulin R Low) 0 units SC ACHS [facility] PRN Reason: Protocol Last Admin: 04/06/17 17:50 Dose: 2 units Metoprolol Tartrate (Lopressor) 75 mg PO BID [facility] Last Admin: 04/06/17 18:00 Dose: Not Given Polyethylene Glycol (Miralax) 17 gm PO BID [facility] Last Admin: 04/06/17 17:52 Dose: 17 gm Spironolactone (Aldactone) 25 mg PO BID [facility] Last Admin: 04/05/17 17:26 Dose: 25 mg - Labs Labs: 04/03/17 06:30 04/06/17 06:00 PT 14.2 Seconds (9.9-11.8) H 03/31/17 11:03 INR 1.31 (0.93-1.08) H 03/31/17 11:03 APTT 37.3 Seconds (23.7-30.8) H 03/31/17 11:03 - Constitutional Appears: Well - Head Exam Head Exam: ATRAUMATIC, NORMAL INSPECTION, NORMOCEPHALIC - Eye Exam Eye Exam: EOMI, Normal appearance, PERRL Pupil Exam: NORMAL ACCOMODATION, PERRL - ENT Exam ENT Exam: Mucous Membranes Moist, Normal Exam - Neck Exam Neck Exam: Full ROM, Normal Inspection. absent: Lymphadenopathy - Respiratory Exam Respiratory Exam: Clear to Ausculation Bilateral, NORMAL BREATHING PATTERN - Cardiovascular Exam Cardiovascular Exam: REGULAR RHYTHM, +S1, +S2. absent: Murmur - GI/Abdominal Exam GI & Abdominal Exam: Soft, Normal Bowel Sounds. absent: Tenderness - Rectal Exam Rectal Exam: NORMAL INSPECTION - Exam Exam: Circumcision, NORMAL INSPECTION External exam: NORMAL EXTERNAL EXAM Speculum exam: NORMAL SPECULUM EXAM Bimanual exam: NORMAL BIMANUAL EXAM - Extremities Exam Extremities Exam: Full ROM, Normal Capillary Refill, Normal Inspection. absent : Joint Swelling, Pedal Edema - Back Exam Back Exam: NORMAL INSPECTION - Neurological Exam Neurological Exam: Alert, Awake, CN II-XII Intact, Normal Gait, Oriented x3 - Psychiatric Exam Psychiatric exam: Normal Affect, Normal Mood - Skin Skin Exam: Dry, Intact, Normal Color, Warm Assessment and Plan - Assessment and Plan (Free Text) Assessment: SEPSIS WITH HAP AND LOCULATED EFFUSION Plan: PRESENT ABX
--- NOTE | 2017-04-07 01:55 | CP.PCM.PN ---
Subjective - Date & Time of Evaluation Date of Evaluation: 04/07/17 Time of Evaluation: 01:47 - Subjective Subjective: S:Nurse Breezy calls and tells that HR has been 120-130's.BP Patient's Lopressor was held in day time for low BP . I went to patient's room. I watched on monitor that heart rate was going up to 155/min. average 130's. She is sleeping and breathing comfortably. Medical record was reviewed. O: Last Vital Signs 3 Temp 97.9 F 04/06/17 23:26 Pulse 106 H 04/06/17 23:26 Resp 20 04/06/17 23:26 BP 111/69 04/06/17 23:26 Pulse Ox 99 04/06/17 06:00 A:Atrial fibrillartin with RVR. P:Lopressor 75 mg PO now. Objective - Vital Signs/Intake and Output Vital Signs (last 24 hours): Temp Pulse Resp BP Pulse Ox 97.9 F 106 H 20 111/69 99 04/06/17 23:26 04/06/17 23:26 04/06/17 23:26 04/06/17 23:26 04/06/17 06:00 Intake and Output: 04/06/17 04/07/17 18:59 06:59 Intake Total 300 Output Total 100 Balance 200 - Medications Medications: Current Medications Aspirin (Aspirin Chewable) 81 mg PO DAILY [facility] Last Admin: 04/06/17 10:26 Dose: 81 mg Atorvastatin Calcium (Lipitor) 20 mg PO DIN [facility] Last Admin: 04/06/17 17:52 Dose: 20 mg Dabigatran (Pradaxa) 150 mg PO BID [facility] PRN Reason: Protocol Last Admin: 04/05/17 17:25 Dose: 150 mg Doxycycline Hyclate (Doryx) 100 mg PO Q12 [facility] PRN Reason: Protocol Stop: 04/10/17 22:01 Last Admin: 04/06/17 21:44 Dose: 100 mg Furosemide (Lasix) 40 mg PO DAILY [facility] Last Admin: 04/05/17 09:53 Dose: 40 mg Meropenem 1g/NS 100mL IVPB (Meropenem 1g/Ns 100ml Ivpb) 1 gm in 100 mls @ 100 mls/hr IVPB Q8 [facility] PRN Reason: Protocol Stop: 04/10/17 22:01 Last Admin: 04/06/17 21:44 Dose: 100 mls/hr Insulin Human Regular (Humulin R Low) 0 units SC ACHS [facility] PRN Reason: Protocol Last Admin: 04/06/17 22:00 Dose: Not Given Metoprolol Tartrate (Lopressor) 75 mg PO BID [facility] Last Admin: 04/06/17 18:00 Dose: Not Given Polyethylene Glycol (Miralax) 17 gm PO BID [facility] Last Admin: 04/06/17 17:52 Dose: 17 gm Spironolactone (Aldactone) 25 mg PO BID [facility] Last Admin: 04/05/17 17:26 Dose: 25 mg - Labs Labs: 04/03/17 06:30 04/06/17 06:00 PT 14.2 Seconds (9.9-11.8) H 03/31/17 11:03 INR 1.31 (0.93-1.08) H 03/31/17 11:03 APTT 37.3 Seconds (23.7-30.8) H 03/31/17 11:03
[2017-04-07] MEDS: Meropenem 1g/NS 100mL IVPB 1 GM/100 ML PIGGYBACK IVPB SCH ×3 (05:29→21:03)
--- NOTE | 2017-04-07 08:08 | CP.PCM.PN ---
Subjective - Date & Time of Evaluation Date of Evaluation: 04/07/17 Time of Evaluation: 08:05 - Subjective Subjective: Pt with no pain. Eating ok. No palpitations Objective - Vital Signs/Intake and Output Vital Signs (last 24 hours): Temp Pulse Resp BP Pulse Ox 98 F 91 H 20 103/61 98 04/07/17 05:57 04/07/17 05:57 04/07/17 05:57 04/07/17 05:57 04/07/17 05:57 Intake and Output: 04/07/17 04/07/17 06:59 18:59 Intake Total 300 Output Total 0 Balance 300 - Medications Medications: Current Medications Aspirin (Aspirin Chewable) 81 mg PO DAILY [facility] Last Admin: 04/06/17 10:26 Dose: 81 mg Atorvastatin Calcium (Lipitor) 20 mg PO DIN [facility] Last Admin: 04/06/17 17:52 Dose: 20 mg Doxycycline Hyclate (Doryx) 100 mg PO Q12 [facility] PRN Reason: Protocol Stop: 04/10/17 22:01 Last Admin: 04/06/17 21:44 Dose: 100 mg Furosemide (Lasix) 40 mg PO DAILY [facility] Last Admin: 04/05/17 09:53 Dose: 40 mg Meropenem 1g/NS 100mL IVPB (Meropenem 1g/Ns 100ml Ivpb) 1 gm in 100 mls @ 100 mls/hr IVPB Q8 [facility] PRN Reason: Protocol Stop: 04/10/17 22:01 Last Admin: 04/07/17 05:29 Dose: 100 mls/hr Insulin Human Regular (Humulin R Low) 0 units SC ACHS [facility] PRN Reason: Protocol Last Admin: 04/06/17 22:00 Dose: Not Given Metoprolol Tartrate (Lopressor) 75 mg PO BID [facility] Last Admin: 04/06/17 18:00 Dose: Not Given Polyethylene Glycol (Miralax) 17 gm PO BID [facility] Last Admin: 04/06/17 17:52 Dose: 17 gm Spironolactone (Aldactone) 25 mg PO BID [facility] Last Admin: 04/05/17 17:26 Dose: 25 mg Warfarin Sodium (Coumadin) 3 mg PO 1800 [facility] PRN Reason: Protocol - Labs Labs: 04/03/17 06:30 04/06/17 06:00 PT 14.2 Seconds (9.9-11.8) H 03/31/17 11:03 INR 1.31 (0.93-1.08) H 03/31/17 11:03 APTT 37.3 Seconds (23.7-30.8) H 03/31/17 11:03 - Constitutional Appears: Well - Head Exam Head Exam: ATRAUMATIC - Eye Exam Eye Exam: Normal appearance - ENT Exam ENT Exam: Mucous Membranes Moist - Neck Exam Neck Exam: Normal Inspection - Respiratory Exam Respiratory Exam: Clear to Ausculation Bilateral, NORMAL BREATHING PATTERN - Cardiovascular Exam Cardiovascular Exam: Irregular Rhythm, REGULAR RHYTHM - GI/Abdominal Exam GI & Abdominal Exam: Normal Bowel Sounds - Rectal Exam Rectal Exam: Deferred, NORMAL INSPECTION - Psychiatric Exam Psychiatric exam: Normal Affect Assessment and Plan - Assessment and Plan (Free Text) Assessment: ASSESSMENT: 1. Left-sided pleural effusion with possible loculation. 2. Delirium. 3. Hyponatremia. 4. Atrial fibrillation, on anticoagulation. 5. Pulmonary hypertension. 6. Tricuspid regurgitation. 7. Diabetes type 2. 8. Coronary artery disease. 9. Splenic abnormality. Plan: PLAN: The patient is on Aldactone, which she is going to continue. She is going to continue with doxycycline for antibiotics. She is on Lasix daily, will place on hold due to hyponatremia. She is on metoprolol. The patient is on meropenem for antibiotics. Blood cultures and urine cultures have been negative. The patient is going to be discontinued with Pradaxa for anticoagulation and changed to Coumadin. She is currently comfortable. I did speak to Dr Blayne ricketts yesterday to update and for FU.
[2017-04-07 08:15] LABS: BLOOD UREA NITROGEN 19 mg/dL (7-21); CALCIUM 8.1 mg/dL (8.4-10.5); CARBON DIOXIDE 29 mmol/L (21-33); CHLORIDE 96 mmol/L (98-107); GFR AFRICAN-AMERICAN > 60; GLUCOSE,RANDOM 161 mg/dL (70-110); POTASSIUM 4.3 mmol/L (3.6-5.0); SODIUM 130 mmol/L (132-148)
--- NOTE | 2017-04-07 09:37 | CP.PCM.PN ---
Subjective - Date & Time of Evaluation Date of Evaluation: 04/07/17 Time of Evaluation: 08:00 - Subjective Subjective: S&E at bedside this am. No new complaints, tolerate oral intake, had BM yesterday, no c/o abdominal pain or bleeding, SOB or CP. Objective - Vital Signs/Intake and Output Vital Signs (last 24 hours): Temp Pulse Resp BP Pulse Ox 98 F 91 H 20 103/61 98 04/07/17 05:57 04/07/17 05:57 04/07/17 05:57 04/07/17 05:57 04/07/17 05:57 Intake and Output: 04/07/17 04/07/17 06:59 18:59 Intake Total 300 Output Total 0 Balance 300 - Medications Medications: Current Medications Aspirin (Aspirin Chewable) 81 mg PO DAILY [facility] Last Admin: 04/06/17 10:26 Dose: 81 mg Atorvastatin Calcium (Lipitor) 20 mg PO DIN [facility] Last Admin: 04/06/17 17:52 Dose: 20 mg Doxycycline Hyclate (Doryx) 100 mg PO Q12 [facility] PRN Reason: Protocol Stop: 04/10/17 22:01 Last Admin: 04/06/17 21:44 Dose: 100 mg Furosemide (Lasix) 40 mg PO DAILY [facility] Last Admin: 04/05/17 09:53 Dose: 40 mg Meropenem 1g/NS 100mL IVPB (Meropenem 1g/Ns 100ml Ivpb) 1 gm in 100 mls @ 100 mls/hr IVPB Q8 [facility] PRN Reason: Protocol Stop: 04/10/17 22:01 Last Admin: 04/07/17 05:29 Dose: 100 mls/hr Insulin Human Regular (Humulin R Low) 0 units SC ACHS [facility] PRN Reason: Protocol Last Admin: 04/06/17 22:00 Dose: Not Given Metoprolol Tartrate (Lopressor) 75 mg PO BID [facility] Last Admin: 04/06/17 18:00 Dose: Not Given Polyethylene Glycol (Miralax) 17 gm PO BID [facility] Last Admin: 04/06/17 17:52 Dose: 17 gm Spironolactone (Aldactone) 25 mg PO BID [facility] Last Admin: 04/05/17 17:26 Dose: 25 mg Warfarin Sodium (Coumadin) 3 mg PO 1800 [facility] PRN Reason: Protocol - Labs Labs: 04/03/17 06:30 06/28/17 07:45 PT 14.2 Seconds (9.9-11.8) H 03/31/17 11:03 INR 1.31 (0.93-1.08) H 03/31/17 11:03 APTT 37.3 Seconds (23.7-30.8) H 03/31/17 11:03 - Constitutional Appears: No Acute Distress - Head Exam Head Exam: NORMAL INSPECTION - Eye Exam Eye Exam: Normal appearance. absent: Scleral icterus - ENT Exam ENT Exam: Mucous Membranes Moist - Neck Exam Neck Exam: Normal Inspection - Respiratory Exam Respiratory Exam: Clear to Ausculation Bilateral, NORMAL BREATHING PATTERN. absent: Respiratory Distress - Cardiovascular Exam Cardiovascular Exam: +S1, +S2 - GI/Abdominal Exam GI & Abdominal Exam: Soft, Normal Bowel Sounds. absent: Guarding, Tenderness, Organomegaly, Rebound - Extremities Exam Extremities Exam: absent: Calf Tenderness, Pedal Edema - Neurological Exam Neurological Exam: Alert, Awake, Oriented x3 Assessment and Plan - Assessment and Plan (Free Text) Assessment: ASSESSMENT: Recurrent CHF Chronic Atrial Fibrillation Left sided Pleural effusion, s/p thorocentesis Chronic Splenic hematoma, MRI done, no reported finding of neoplasm Near syncopy PLAN: continue Miralax, hold for stools >2/day diet as tolerated Pradaxa DC and to start Coumadin Aspirin On IV antibiotics, oral Doxcycline as per ID Seen and case discussed with Dr. Ortega.
[2017-04-07] MEDS: POLYETHYLENE GLYCOL 3350 17 GM/Dose PACKET PO SCH ×2 (09:49→17:41)
[2017-04-07] MEDS: Insulin Reg-LOW-Coverage SC SCH ×4 (09:51→21:40)
--- NOTE | 2017-04-07 11:20 | CP.PCM.PN ---
Subjective - Date & Time of Evaluation Date of Evaluation: 04/07/17 Time of Evaluation: 09:40 - Subjective Subjective: Seen for followup lying in bed on telemetry. Offers no complaints. Denies any chest pain or palpitations. Dyspnea improved. Objective - Vital Signs/Intake and Output Vital Signs (last 24 hours): Temp Pulse Resp BP Pulse Ox 98 F 100 H 20 108/60 98 04/07/17 05:57 04/07/17 09:50 04/07/17 05:57 04/07/17 09:50 04/07/17 05:57 Intake and Output: 04/07/17 04/07/17 06:59 18:59 Intake Total 300 Output Total 0 Balance 300 - Medications Medications: Current Medications Aspirin (Aspirin Chewable) 81 mg PO DAILY [facility] Last Admin: 04/07/17 09:49 Dose: 81 mg Atorvastatin Calcium (Lipitor) 20 mg PO DIN [facility] Last Admin: 04/06/17 17:52 Dose: 20 mg Doxycycline Hyclate (Doryx) 100 mg PO Q12 [facility] PRN Reason: Protocol Stop: 04/10/17 22:01 Last Admin: 04/07/17 09:49 Dose: 100 mg Furosemide (Lasix) 40 mg PO DAILY [facility] Last Admin: 04/05/17 09:53 Dose: 40 mg Meropenem 1g/NS 100mL IVPB (Meropenem 1g/Ns 100ml Ivpb) 1 gm in 100 mls @ 100 mls/hr IVPB Q8 [facility] PRN Reason: Protocol Stop: 04/10/17 22:01 Last Admin: 04/07/17 05:29 Dose: 100 mls/hr Insulin Human Regular (Humulin R Low) 0 units SC ACHS [facility] PRN Reason: Protocol Last Admin: 04/07/17 09:51 Dose: Not Given Metoprolol Tartrate (Lopressor) 75 mg PO BID [facility] Last Admin: 04/07/17 09:50 Dose: 75 mg Polyethylene Glycol (Miralax) 17 gm PO BID [facility] Last Admin: 04/07/17 09:49 Dose: 17 gm Spironolactone (Aldactone) 25 mg PO BID [facility] Last Admin: 04/05/17 17:26 Dose: 25 mg Warfarin Sodium (Coumadin) 3 mg PO 1800 [facility] PRN Reason: Protocol - Labs Labs: 04/03/17 06:30 04/07/17 07:45 PT 14.2 Seconds (9.9-11.8) H 03/31/17 11:03 INR 1.31 (0.93-1.08) H 03/31/17 11:03 APTT 37.3 Seconds (23.7-30.8) H 03/31/17 11:03 - Constitutional Appears: No Acute Distress - Neck Exam Neck Exam: Normal Inspection - Respiratory Exam Respiratory Exam: Rhonchi - Cardiovascular Exam Cardiovascular Exam: Irregular Rhythm, Murmur - GI/Abdominal Exam GI & Abdominal Exam: Soft, Normal Bowel Sounds - Neurological Exam Neurological Exam: Alert, Oriented x3 - Psychiatric Exam Psychiatric exam: Normal Mood Assessment and Plan (1) Congestive heart failure Assessment & Plan: Clinically improved. Diuretics on hold given hyponatremia. Status: Acute (2) Pneumonia Assessment & Plan: Improved Status: Acute (3) Fall Assessment & Plan: Has some gait instability which may pose difficulty with continued anticoagulant use. Will need to be reassessed with time. Status: Acute (4) Rapid atrial fibrillation Assessment & Plan: Heart rate control improved, chronic Status: Acute (5) Hyponatremia Status: Acute - Assessment and Plan (Free Text) Assessment: Likely diuretic induced. Plan: Continue current medications. Continue current management. Needs physical therapy. May benefit from rehabilitation. Continue to monitor fall risk. Followup sodium level.
--- NOTE | 2017-04-07 19:52 | CP.PCM.PN ---
Subjective - Date & Time of Evaluation Date of Evaluation: 04/07/17 Time of Evaluation: 07:15 - Subjective Subjective: WEAKNESS Objective - Vital Signs/Intake and Output Vital Signs (last 24 hours): Temp Pulse Resp BP Pulse Ox 97.6 F 95 H 18 97/59 L 98 04/07/17 17:56 04/07/17 18:00 04/07/17 17:56 04/07/17 17:56 04/07/17 05:57 - Medications Medications: Current Medications Aspirin (Aspirin Chewable) 81 mg PO DAILY [facility] Last Admin: 04/07/17 09:49 Dose: 81 mg Atorvastatin Calcium (Lipitor) 20 mg PO DIN [facility] Last Admin: 04/07/17 17:41 Dose: 20 mg Doxycycline Hyclate (Doryx) 100 mg PO Q12 [facility] PRN Reason: Protocol Stop: 04/10/17 22:01 Last Admin: 04/07/17 09:49 Dose: 100 mg Furosemide (Lasix) 40 mg PO DAILY [facility] Last Admin: 04/05/17 09:53 Dose: 40 mg Meropenem 1g/NS 100mL IVPB (Meropenem 1g/Ns 100ml Ivpb) 1 gm in 100 mls @ 100 mls/hr IVPB Q8 [facility] PRN Reason: Protocol Stop: 04/10/17 22:01 Last Admin: 04/07/17 13:51 Dose: 100 mls/hr Insulin Human Regular (Humulin R Low) 0 units SC ACHS [facility] PRN Reason: Protocol Last Admin: 04/07/17 17:42 Dose: 2 units Metoprolol Tartrate (Lopressor) 75 mg PO BID [facility] Last Admin: 04/07/17 17:46 Dose: Not Given Polyethylene Glycol (Miralax) 17 gm PO BID [facility] Last Admin: 04/07/17 17:41 Dose: 17 gm Spironolactone (Aldactone) 25 mg PO BID [facility] Last Admin: 04/05/17 17:26 Dose: 25 mg Warfarin Sodium (Coumadin) 3 mg PO 1800 [facility] PRN Reason: Protocol Last Admin: 04/07/17 17:41 Dose: 3 mg - Labs Labs: 04/03/17 06:30 04/07/17 07:45 PT 14.2 Seconds (9.9-11.8) H 03/31/17 11:03 INR 1.31 (0.93-1.08) H 03/31/17 11:03 APTT 37.3 Seconds (23.7-30.8) H 03/31/17 11:03 - Constitutional Appears: Well - Head Exam Head Exam: ATRAUMATIC, NORMAL INSPECTION, NORMOCEPHALIC - Eye Exam Eye Exam: EOMI, Normal appearance, PERRL Pupil Exam: NORMAL ACCOMODATION, PERRL - ENT Exam ENT Exam: Mucous Membranes Moist, Normal Exam - Neck Exam Neck Exam: Full ROM, Normal Inspection. absent: Lymphadenopathy - Respiratory Exam Respiratory Exam: Clear to Ausculation Bilateral, NORMAL BREATHING PATTERN - Cardiovascular Exam Cardiovascular Exam: REGULAR RHYTHM, +S1, +S2. absent: Murmur - GI/Abdominal Exam GI & Abdominal Exam: Soft, Normal Bowel Sounds. absent: Tenderness - Rectal Exam Rectal Exam: NORMAL INSPECTION - Exam Exam: Circumcision, NORMAL INSPECTION External exam: NORMAL EXTERNAL EXAM Speculum exam: NORMAL SPECULUM EXAM Bimanual exam: NORMAL BIMANUAL EXAM - Extremities Exam Extremities Exam: Full ROM, Normal Capillary Refill, Normal Inspection. absent : Joint Swelling, Pedal Edema - Back Exam Back Exam: NORMAL INSPECTION - Neurological Exam Neurological Exam: Alert, Awake, CN II-XII Intact, Normal Gait, Oriented x3 - Psychiatric Exam Psychiatric exam: Normal Affect, Normal Mood - Skin Skin Exam: Dry, Intact, Normal Color, Warm Assessment and Plan - Assessment and Plan (Free Text) Plan: DAY NUMBER SEVEN OF [facility] /DOX
--- NOTE | 2017-04-07 23:24 | CP.PCM.PN ---
Subjective - Date & Time of Evaluation Date of Evaluation: 04/07/17 Time of Evaluation: 10:00 - Subjective Subjective: Abdominal pain improved. No nausea, no vomiting. MRI abdomen showed shrinkage in the upper abdomen lesion. left pleural effusion tapped. Objective - Vital Signs/Intake and Output Vital Signs (last 24 hours): Temp Pulse Resp BP Pulse Ox 97.6 F 95 H 18 97/59 L 98 04/07/17 17:56 04/07/17 18:00 04/07/17 17:56 04/07/17 17:56 04/07/17 05:57 - Medications Medications: Current Medications Aspirin (Aspirin Chewable) 81 mg PO DAILY [facility] Last Admin: 04/07/17 09:49 Dose: 81 mg Atorvastatin Calcium (Lipitor) 20 mg PO DIN [facility] Last Admin: 04/07/17 17:41 Dose: 20 mg Doxycycline Hyclate (Doryx) 100 mg PO Q12 [facility] PRN Reason: Protocol Stop: 04/10/17 22:01 Last Admin: 04/07/17 21:03 Dose: 100 mg Furosemide (Lasix) 40 mg PO DAILY [facility] Last Admin: 04/05/17 09:53 Dose: 40 mg Meropenem 1g/NS 100mL IVPB (Meropenem 1g/Ns 100ml Ivpb) 1 gm in 100 mls @ 100 mls/hr IVPB Q8 [facility] PRN Reason: Protocol Stop: 04/10/17 22:01 Last Admin: 04/07/17 21:03 Dose: 100 mls/hr Insulin Human Regular (Humulin R Low) 0 units SC ACHS [facility] PRN Reason: Protocol Last Admin: 04/07/17 21:40 Dose: Not Given Metoprolol Tartrate (Lopressor) 75 mg PO BID [facility] Last Admin: 04/07/17 17:46 Dose: Not Given Polyethylene Glycol (Miralax) 17 gm PO BID [facility] Last Admin: 04/07/17 17:41 Dose: 17 gm Spironolactone (Aldactone) 25 mg PO BID [facility] Last Admin: 04/05/17 17:26 Dose: 25 mg Warfarin Sodium (Coumadin) 3 mg PO 1800 [facility] PRN Reason: Protocol Last Admin: 04/07/17 17:41 Dose: 3 mg - Labs Labs: 04/03/17 06:30 04/07/17 07:45 PT 14.2 Seconds (9.9-11.8) H 03/31/17 11:03 INR 1.31 (0.93-1.08) H 03/31/17 11:03 APTT 37.3 Seconds (23.7-30.8) H 03/31/17 11:03 - Head Exam Head Exam: ATRAUMATIC, NORMAL INSPECTION, NORMOCEPHALIC - Eye Exam Eye Exam: Normal appearance Pupil Exam: NORMAL ACCOMODATION - Neck Exam Neck Exam: Normal Inspection - Respiratory Exam Respiratory Exam: Clear to Ausculation Bilateral, NORMAL BREATHING PATTERN - Cardiovascular Exam Cardiovascular Exam: REGULAR RHYTHM, +S1, +S2 - GI/Abdominal Exam GI & Abdominal Exam: Soft, Normal Bowel Sounds - Extremities Exam Extremities Exam: Normal Capillary Refill, Normal Inspection - Neurological Exam Neurological Exam: Alert, CN II-XII Intact, Normal Gait, Oriented x3 - Skin Skin Exam: Intact, Normal Color, Warm Assessment and Plan - Assessment and Plan (Free Text) Assessment: 1. left upper abdomen mass : MRI showed shrinkage in mass. It might be hematoma. Will repeat MRI in 3-6 months. 2. iron deficiency anemia : iron supplementation. 3. left pleural effusion : cytology pending. 4. GC improved. 5. She is awaiting rehab placement. Thank you Dr. James for allowing us to participate in her care.
--- NOTE | 2017-04-08 04:11 | CP.PCM.PN ---
Subjective - Date & Time of Evaluation Date of Evaluation: 04/08/17 Time of Evaluation: 04:08 - Subjective Subjective: Patient was seen at bedside. She states that she has heavy breathing .Pulse ox is 96%.BP 100/59. Has no chest pain, nausea, sweating, palpitation. HR 130's.Going up upto 152/min. A few PVC's.Spoke to site monitor. Cardizem was ordered. BP was 94/45, cardizem was cancelled and digoxin 0.25 mg IV was ordered. Also, bmp, mag, phos, trop were ordered. This 76 year old white woman was admitted with difficulty in walking, weakness , left sided pleural effusion. Has PMH of atrial fibrillation, pulmonary hypertension, CAD, DM II, TR. Objective - Vital Signs/Intake and Output Vital Signs (last 24 hours): Temp Pulse Resp BP Pulse Ox 99 F 120 H 18 100/59 L 96 04/08/17 00:01 04/08/17 02:00 04/08/17 00:01 04/08/17 00:01 04/08/17 00:01 - Medications Medications: Current Medications Aspirin (Aspirin Chewable) 81 mg PO DAILY [facility] Last Admin: 04/07/17 09:49 Dose: 81 mg Atorvastatin Calcium (Lipitor) 20 mg PO DIN [facility] Last Admin: 04/07/17 17:41 Dose: 20 mg Doxycycline Hyclate (Doryx) 100 mg PO Q12 [facility] PRN Reason: Protocol Stop: 04/10/17 22:01 Last Admin: 04/07/17 21:03 Dose: 100 mg Furosemide (Lasix) 40 mg PO DAILY [facility] Last Admin: 04/05/17 09:53 Dose: 40 mg Meropenem 1g/NS 100mL IVPB (Meropenem 1g/Ns 100ml Ivpb) 1 gm in 100 mls @ 100 mls/hr IVPB Q8 [facility] PRN Reason: Protocol Stop: 04/10/17 22:01 Last Admin: 04/07/17 21:03 Dose: 100 mls/hr Insulin Human Regular (Humulin R Low) 0 units SC ACHS [facility] PRN Reason: Protocol Last Admin: 04/07/17 21:40 Dose: Not Given Metoprolol Tartrate (Lopressor) 75 mg PO BID [facility] Last Admin: 04/07/17 17:46 Dose: Not Given Polyethylene Glycol (Miralax) 17 gm PO BID [facility] Last Admin: 04/07/17 17:41 Dose: 17 gm Spironolactone (Aldactone) 25 mg PO BID [facility] Last Admin: 04/05/17 17:26 Dose: 25 mg Warfarin Sodium (Coumadin) 3 mg PO 1800 [facility] PRN Reason: Protocol Last Admin: 04/07/17 17:41 Dose: 3 mg - Labs Labs: 04/03/17 06:30 04/07/17 07:45 PT 14.2 Seconds (9.9-11.8) H 03/31/17 11:03 INR 1.31 (0.93-1.08) H 03/31/17 11:03 APTT 37.3 Seconds (23.7-30.8) H 03/31/17 11:03 Micro Results 04/05/17 20:16 Pleural Fluid Gram Stain - Final 04/05/17 20:16 Pleural Fluid Body Fluid Culture - Preliminary NO GROWTH AFTER 24 HOURS 04/05/17 20:16 Other: Please Indicate Mycobacterial Culture - Preliminary 03/31/17 11:16 Blood Blood Culture - Final NO GROWTH AFTER 5 DAYS 03/31/17 11:16 Blood Gram Stain - Final TEST NOT PERFORMED 03/31/17 11:12 Blood Blood Culture - Final NO GROWTH AFTER 5 DAYS 03/31/17 11:12 Blood Gram Stain - Final TEST NOT PERFORMED 04/02/17 04:23 Urine Urine Culture - Final No Growth (<1,000 CFU/ML) 03/31/17 13:00 Urine,Clean Catch Urine Culture - Final 50-100,000 CFU/ML. MULTIPLE SPECIES. SUGGEST REPEAT SPECIMEM. Most Recent Lab Values WBC 10.4 10^3/ul (4.5-11.0) 04/03/17 06:30 RBC 4.07 10^6/uL (3.5-6.1) 04/03/17 06:30 Hgb 11.7 gm/dL (12.0-16.0) L 04/03/17 06:30 Hct 36.0 % (36.0-48.0) 04/03/17 06:30 MCV 88.5 fL (80.0-105.0) 04/03/17 06:30 MCH 28.7 pg (25.0-35.0) 04/03/17 06:30 MCHC 32.5 g/dl (31.0-37.0) 04/03/17 06:30 RDW 14.9 % (11.5-14.5) H 04/03/17 06:30 Plt Count 205 10^3/uL (120.0-450.0) 04/03/17 06:30 MPV 8.8 fl (7.0-11.0) 04/03/17 06:30 Gran % 86.4 % (50.0-68.0) H 04/03/17 06:30 Lymph % (Auto) 5.5 % (22.0-35.0) L 04/03/17 06:30 Baxter % (Auto) 6.3 % (1.0-6.0) H 04/03/17 06:30 Eos % (Auto) 1.3 % (1.5-5.0) L 04/03/17 06:30 Baso % (Auto) 0.5 % (0.0-3.0) 04/03/17 06:30 Gran # 9.02 (1.4-6.5) H 04/03/17 06:30 Lymph # 0.6 (1.2-3.4) L 04/03/17 06:30 Baxter # 0.7 (0.1-0.6) H 04/03/17 06:30 Eos # 0.1 (0.0-0.7) 04/03/17 06:30 Baso # 0.05 K/mm3 (0.0-2.0) 04/03/17 06:30 PT 14.2 Seconds (9.9-11.8) H 03/31/17 11:03 INR 1.31 (0.93-1.08) H 03/31/17 11:03 APTT 37.3 Seconds (23.7-30.8) H 03/31/17 11:03 Sodium 133 mmol/L (132-148) 04/08/17 04:24 Potassium 4.7 mmol/L (3.6-5.0) 04/08/17 04:24 Chloride 96 mmol/L (98-107) L 04/08/17 04:24 Carbon Dioxide 34 mmol/L (21-33) H 04/08/17 04:24 Anion Gap 8 (10-20) L 04/08/17 04:24 BUN 20 mg/dL (7-21) 04/08/17 04:24 Creatinine 0.9 mg/dL (0.5-1.4) 04/08/17 04:24 Est GFR ( Amer) > 60 04/08/17 04:24 Est GFR (Non-Af Amer) > 60 04/08/17 04:24 POC Glucose (mg/dL) 195 mg/dL (65-110) H 04/07/17 07:22 Random Glucose 163 mg/dL (70-110) H 04/08/17 04:24 Calcium 8.2 mg/dL (8.4-10.5) L 04/08/17 04:24 Phosphorus 2.7 mg/dL (2.5-4.5) 04/08/17 04:24 Magnesium 2.0 mg/dL (1.7-2.2) 04/08/17 04:24 Iron 36 ug/dL (45-180) L 04/03/17 06:30 TIBC 225 ug/dL (265-497) L 04/03/17 06:30 % Saturation 16 % (20-55) L 04/03/17 06:30 Ferritin 157.0 ng/mL 04/03/17 06:30 Total Bilirubin 1.3 mg/dL (0.2-1.3) 04/02/17 06:15 AST 18 U/L (15-39) 04/02/17 06:15 ALT 19 U/L (7-56) 04/02/17 06:15 Alkaline Phosphatase 110 U/L (38-133) 04/02/17 06:15 Lactate Dehydrogenase 601 U/L (333-699) 03/31/17 11:03 Total Creatine Kinase 20 U/L (35-230) L 03/31/17 11:03 Troponin I 0.02 ng/mL D 04/08/17 04:24 NT-Pro-B Natriuret Pep 05531 pg/mL (0-450) H 04/01/17 12:00 Total Protein 5.2 g/dL (5.8-8.3) L 04/02/17 06:15 Albumin 2.3 g/dL (3.0-4.8) L 04/02/17 06:15 Globulin 2.9 gm/dL 04/02/17 06:15 Albumin/Globulin Ratio 0.8 (1.1-1.8) L 04/02/17 06:15 Vitamin B12 337 pg/mL (239-931) 04/03/17 06:30 Procalcitonin 0.22 NG/ML (0.19-0.49) 04/02/17 08:00 Free T4 1.16 ng/dL (0.78-2.19) 04/01/17 08:30 TSH 3rd Generation 3.84 mIU/mL (0.46-4.68) 04/01/17 08:30 Urine Color Straw (YELLOW) 03/31/17 12:35 Urine Appearance Clear (CLEAR) 03/31/17 12:35 Urine pH 6.5 (4.7-8.0) 03/31/17 12:35 Ur Specific [place] <= 1.005 (1.005-1.035) 03/31/17 12:35 Urine Protein Negative mg/dL (<30 mg/dL) 03/31/17 12:35 Urine Glucose (UA) 250 mg/dL (NEGATIVE) H 03/31/17 12:35 Urine Ketones Negative mg/dL (NEGATIVE) 03/31/17 12:35 Urine Blood Trace-intact (NEGATIVE) H 03/31/17 12:35 Urine Nitrate Negative (NEGATIVE) 03/31/17 12:35 Urine Bilirubin Negative (NEGATIVE) 03/31/17 12:35 Urine Urobilinogen 0.2 E.U./dL (<1 E.U./dL) 03/31/17 12:35 Ur Leukocyte Esterase [place]/uL (NEGATIVE) H 03/31/17 12:35 Urine RBC 0 - 2 /hpf (0-2) 03/31/17 12:35 Urine WBC 5 - 10 /hpf (0-6) 03/31/17 12:35 Ur Epithelial Cells 0 - 2 /hpf (0-5) 03/31/17 12:35 Urine Bacteria Few (NEG) 03/31/17 12:35 Urine Other Uyeast 03/31/17 12:35 Fluid Source Pleural 04/05/17 20:16 Fluid Appearance Turbid (CLEAR) 04/05/17 20:16 Fluid WBC 86618.0 /uL (0.0-300.0) H 04/05/17 20:16 Fluid RBC 44172.0 /uL (0.0-0.0) H 04/05/17 20:16 Fluid Tot Cell Count 100 (0-0) H 04/05/17 20:16 Fluid Neutrophils 84.0 % (0-0) H 04/05/17 20:16 Fluid Lymphocytes 16.0 % (0-0) H 04/05/17 20:16 Fld Monocyte/Macrophag 0 % (0-0) 04/05/17 20:16 Fluid Comment TEST NOT PERFORMED 04/05/17 20:16 Pleural pH 7.0 04/05/17 20:16 Pleural Total Protein 3.2 g/dL 04/05/17 20:16 Pleural LDH 9245 U/L 04/05/17 20:16 Pleural Glucose <10 mg/dL L 04/05/17 20:16 - Head Exam Head Exam: ATRAUMATIC, NORMAL INSPECTION - Eye Exam Eye Exam: Normal appearance - ENT Exam ENT Exam: Normal External Ear Exam - Neck Exam Neck Exam: Normal Inspection - Respiratory Exam Respiratory Exam: NORMAL BREATHING PATTERN - Cardiovascular Exam Cardiovascular Exam: absent: JVD - GI/Abdominal Exam GI & Abdominal Exam: absent: Distended - Rectal Exam Rectal Exam: Deferred - Exam Additional comments: Above deferred. - Extremities Exam Extremities Exam: Normal Inspection - Back Exam Back Exam: NORMAL INSPECTION - Neurological Exam Neurological Exam: Alert, Oriented x3 - Psychiatric Exam Psychiatric exam: Normal Affect, Normal Mood - Skin Skin Exam: Normal Color Assessment and Plan - Assessment and Plan (Free Text) Assessment: Atrial fibrillation with RVR. DM II. Pleural effusion. CAD. Pulmonary hypertension. Tricuspid regurgitation. Plan: Digoxin 0.25 mg IV stat. BMP,Mag,Phos, Troponin levels. If BP is > 100 systolic and heart rate is still persistently higher than 130's , will give IV lopressor or cardizem.
[2017-04-08] MEDS ORDERED: Digoxin 500 mcg/2ml (0.5 mg/2ml) Inj IVP STA (04:23)
[2017-04-08 04:38] VITALS: PULSE 157
[2017-04-08 04:42] LABS: BLOOD UREA NITROGEN 20 mg/dL (7-21); CALCIUM 8.2 mg/dL (8.4-10.5); CARBON DIOXIDE 34 mmol/L (21-33); CHLORIDE 96 mmol/L (98-107); GFR AFRICAN-AMERICAN > 60; GLUCOSE,RANDOM 163 mg/dL (70-110); PHOSPHOROUS 2.7 mg/dL (2.5-4.5); POTASSIUM 4.7 mmol/L (3.6-5.0); SODIUM 133 mmol/L (132-148)
[2017-04-08 04:53] LABS: TROPONIN I 0.02 ng/mL
[2017-04-08] MEDS: Meropenem 1g/NS 100mL IVPB 1 GM/100 ML PIGGYBACK IVPB SCH (06:30)
--- NOTE | 2017-04-08 08:17 | CP.PCM.PN ---
Subjective - Date & Time of Evaluation Date of Evaluation: 04/08/17 Time of Evaluation: 07:00 - Subjective Subjective: Stable on 2R. No CP or SOB. AF with RVR lst night > IV dig. and cardizem given. V/S noted. AF with mod VR. PE: Lungs: rhonchi Cor.: irreg., S1S2 Abd.: soft Ext.: no edema Neuro.: alert Labs noted. Na+= 133, K+= 4.2, trop. nl. BC x2 NG at [address] Chest, A+P noted. MRI noted. Splenic hematoma, smaller Objective - Vital Signs/Intake and Output Vital Signs (last 24 hours): Temp Pulse Resp BP Pulse Ox 97.3 F L 79 18 105/54 L 100 04/08/17 06:00 04/08/17 06:00 04/08/17 06:00 04/08/17 06:00 04/08/17 06:00 Intake and Output: 04/08/17 04/08/17 06:59 18:59 Intake Total 120 Balance 120 - Medications Medications: Current Medications Aspirin (Aspirin Chewable) 81 mg PO DAILY [facility] Last Admin: 04/07/17 09:49 Dose: 81 mg Atorvastatin Calcium (Lipitor) 20 mg PO DIN [facility] Last Admin: 04/07/17 17:41 Dose: 20 mg Doxycycline Hyclate (Doryx) 100 mg PO Q12 [facility] PRN Reason: Protocol Stop: 04/10/17 22:01 Last Admin: 04/07/17 21:03 Dose: 100 mg Furosemide (Lasix) 40 mg PO DAILY [facility] Last Admin: 04/05/17 09:53 Dose: 40 mg Meropenem 1g/NS 100mL IVPB (Meropenem 1g/Ns 100ml Ivpb) 1 gm in 100 mls @ 100 mls/hr IVPB Q8 [facility] PRN Reason: Protocol Stop: 04/10/17 22:01 Last Admin: 04/08/17 06:30 Dose: 100 mls/hr Insulin Human Regular (Humulin R Low) 0 units SC ACHS [facility] PRN Reason: Protocol Last Admin: 04/07/17 21:40 Dose: Not Given Metoprolol Tartrate (Lopressor) 100 mg PO BID [facility] Polyethylene Glycol (Miralax) 17 gm PO BID [facility] Last Admin: 04/07/17 17:41 Dose: 17 gm Spironolactone (Aldactone) 25 mg PO BID [facility] Last Admin: 04/05/17 17:26 Dose: 25 mg Warfarin Sodium (Coumadin) 3 mg PO 1800 [facility] PRN Reason: Protocol Last Admin: 04/07/17 17:41 Dose: 3 mg - Labs Labs: 04/03/17 06:30 04/08/17 04:24 PT 14.2 Seconds (9.9-11.8) H 03/31/17 11:03 INR 1.31 (0.93-1.08) H 03/31/17 11:03 APTT 37.3 Seconds (23.7-30.8) H 03/31/17 11:03 Assessment and Plan - Assessment and Plan (Free Text) Assessment: SOB/CP/Shoulder pain AF with RVR Pneumonia Pleural effusion Splenic Mass: R/O hematoma CAD/remote MS and PCI Diabetes Falls CHF HLD Gall Stones Echo: Nl LV, Mild/Mod. MR, Mod. TR and Sev. PH Plan: Increase metoprolol 100 BID Hold Lasix, spironolactone No A/C for now. Too risky F/U on pl. fluid studies As per pulmonary, ID, Dr. Chow, Dr. James. OOB as jeremiah. Monitor: I/O, Na.+, labs, sats., etc.
[2017-04-08] MEDS: POLYETHYLENE GLYCOL 3350 17 GM/Dose PACKET PO SCH ×2 (09:22→18:17)
[2017-04-08] MEDS: Insulin Reg-LOW-Coverage SC SCH ×4 (09:22→23:03)
--- NOTE | 2017-04-08 11:00 | CP.PCM.PN ---
Subjective - Date & Time of Evaluation Date of Evaluation: 04/08/17 Time of Evaluation: 07:00 - Subjective Subjective: DOING BETTEER Objective - Vital Signs/Intake and Output Vital Signs (last 24 hours): Temp Pulse Resp BP Pulse Ox 97.3 F L 118 H 18 117/58 L 100 04/08/17 06:00 04/08/17 09:21 04/08/17 06:00 04/08/17 09:21 04/08/17 06:00 Intake and Output: 04/08/17 04/08/17 06:59 18:59 Intake Total 120 Balance 120 - Medications Medications: Current Medications Aspirin (Aspirin Chewable) 81 mg PO DAILY [facility] Last Admin: 04/08/17 09:21 Dose: 81 mg Atorvastatin Calcium (Lipitor) 20 mg PO DIN [facility] Last Admin: 04/07/17 17:41 Dose: 20 mg Furosemide (Lasix) 40 mg PO DAILY [facility] Last Admin: 04/05/17 09:53 Dose: 40 mg Insulin Human Regular (Humulin R Low) 0 units SC ACHS [facility] PRN Reason: Protocol Last Admin: 04/08/17 09:22 Dose: 1 units Metoprolol Tartrate (Lopressor) 100 mg PO BID [facility] Last Admin: 04/08/17 09:21 Dose: 100 mg Polyethylene Glycol (Miralax) 17 gm PO BID [facility] Last Admin: 04/08/17 09:22 Dose: 17 gm Spironolactone (Aldactone) 25 mg PO BID [facility] Last Admin: 04/05/17 17:26 Dose: 25 mg Warfarin Sodium (Coumadin) 3 mg PO 1800 [facility] PRN Reason: Protocol Last Admin: 04/07/17 17:41 Dose: 3 mg - Labs Labs: 04/03/17 06:30 04/08/17 04:24 PT 14.2 Seconds (9.9-11.8) H 03/31/17 11:03 INR 1.31 (0.93-1.08) H 03/31/17 11:03 APTT 37.3 Seconds (23.7-30.8) H 03/31/17 11:03 - Constitutional Appears: Well - Head Exam Head Exam: ATRAUMATIC, NORMAL INSPECTION, NORMOCEPHALIC - Eye Exam Eye Exam: EOMI, Normal appearance, PERRL Pupil Exam: NORMAL ACCOMODATION, PERRL - ENT Exam ENT Exam: Mucous Membranes Moist, Normal Exam - Neck Exam Neck Exam: Full ROM, Normal Inspection. absent: Lymphadenopathy - Respiratory Exam Respiratory Exam: Clear to Ausculation Bilateral, NORMAL BREATHING PATTERN - Cardiovascular Exam Cardiovascular Exam: REGULAR RHYTHM, +S1, +S2. absent: Murmur - GI/Abdominal Exam GI & Abdominal Exam: Soft, Normal Bowel Sounds. absent: Tenderness - Rectal Exam Rectal Exam: NORMAL INSPECTION - Exam Exam: Circumcision, NORMAL INSPECTION External exam: NORMAL EXTERNAL EXAM Speculum exam: NORMAL SPECULUM EXAM Bimanual exam: NORMAL BIMANUAL EXAM - Extremities Exam Extremities Exam: Full ROM, Normal Capillary Refill, Normal Inspection. absent : Joint Swelling, Pedal Edema - Back Exam Back Exam: NORMAL INSPECTION - Neurological Exam Neurological Exam: Alert, Awake, CN II-XII Intact, Normal Gait, Oriented x3 - Psychiatric Exam Psychiatric exam: Normal Affect, Normal Mood - Skin Skin Exam: Dry, Intact, Normal Color, Warm Assessment and Plan (1) Congestive heart failure Status: Acute (2) Hyponatremia Status: Acute (3) Pleural effusion Status: Acute (4) Pneumonia Status: Acute (5) Fall Status: Acute (6) Hyperglycemia Status: Acute (7) Rapid atrial fibrillation Status: Acute (8) Sepsis Status: Acute (9) Sepsis Status: Acute - Assessment and Plan (Free Text) Plan: DC ABX COMPLETED [place]
--- NOTE | 2017-04-08 17:06 | CP.PCM.PN ---
Subjective - Date & Time of Evaluation Date of Evaluation: 04/08/17 Time of Evaluation: 17:00 - Subjective Subjective: No pain. Eating ok. Had episode of A fib with rapid rate. Objective - Vital Signs/Intake and Output Vital Signs (last 24 hours): Temp Pulse Resp BP Pulse Ox 97.8 F 81 19 104/49 L 100 04/08/17 12:00 04/08/17 12:00 04/08/17 12:00 04/08/17 12:00 04/08/17 06:00 Intake and Output: 04/08/17 04/08/17 06:59 18:59 Intake Total 120 660 Balance 120 660 - Medications Medications: Current Medications Aspirin (Aspirin Chewable) 81 mg PO DAILY [facility] Last Admin: 04/08/17 09:21 Dose: 81 mg Atorvastatin Calcium (Lipitor) 20 mg PO DIN [facility] Last Admin: 04/07/17 17:41 Dose: 20 mg Furosemide (Lasix) 40 mg PO DAILY [facility] Last Admin: 04/05/17 09:53 Dose: 40 mg Insulin Human Regular (Humulin R Low) 0 units SC ACHS [facility] PRN Reason: Protocol Last Admin: 04/08/17 09:22 Dose: 1 units Metoprolol Tartrate (Lopressor) 100 mg PO BID [facility] Last Admin: 04/08/17 09:21 Dose: 100 mg Polyethylene Glycol (Miralax) 17 gm PO BID [facility] Last Admin: 04/08/17 09:22 Dose: 17 gm Spironolactone (Aldactone) 25 mg PO BID [facility] Last Admin: 04/05/17 17:26 Dose: 25 mg Warfarin Sodium (Coumadin) 3 mg PO 1800 [facility] PRN Reason: Protocol Last Admin: 04/07/17 17:41 Dose: 3 mg - Labs Labs: 04/03/17 06:30 04/08/17 04:24 PT 14.2 Seconds (9.9-11.8) H 03/31/17 11:03 INR 1.31 (0.93-1.08) H 03/31/17 11:03 APTT 37.3 Seconds (23.7-30.8) H 03/31/17 11:03 - Constitutional Appears: Well, Non-toxic - Head Exam Head Exam: ATRAUMATIC - Eye Exam Eye Exam: EOMI, Normal appearance - ENT Exam ENT Exam: Mucous Membranes Moist, Normal Exam - Neck Exam Neck Exam: Normal Inspection - Respiratory Exam Respiratory Exam: Clear to Ausculation Bilateral, NORMAL BREATHING PATTERN. absent: Rales, Rhonchi, Stridor - Cardiovascular Exam Cardiovascular Exam: Irregular Rhythm, RRR, +S1, +S2 - GI/Abdominal Exam GI & Abdominal Exam: Soft, Normal Bowel Sounds. absent: Tenderness, Organomegaly - Extremities Exam Extremities Exam: Full ROM, Normal Inspection - Back Exam Back Exam: CVA tenderness (L) - Neurological Exam Neurological Exam: Alert - Psychiatric Exam Psychiatric exam: Normal Affect - Skin Skin Exam: Warm Assessment and Plan - Assessment and Plan (Free Text) Assessment: A fib with rapid rate L Peural Effusion Delerium improved Pulm HTN CAD Plan: Metoprolol increased. On Coumadin after speaking to son, who is aware of the risks and benefits. Follow INR. Coumadin can be reversed. Eating well. Pain is controlled. Meds reviewed.
[2017-04-09 06:39] VITALS: O2SAT 99
[2017-04-09 07:52] LABS: INR 1.29 (0.93-1.08)
[2017-04-09] MEDS: Insulin Reg-LOW-Coverage SC SCH ×3 (08:05→17:46)
--- NOTE | 2017-04-09 10:00 | CP.PCM.PN ---
Subjective - Date & Time of Evaluation Date of Evaluation: 04/09/17 Time of Evaluation: 09:00 - Subjective Subjective: WEAK Objective - Vital Signs/Intake and Output Vital Signs (last 24 hours): Temp Pulse Resp BP Pulse Ox 97.6 F 60 20 90/55 L 99 04/09/17 06:00 04/09/17 06:00 04/09/17 06:00 04/09/17 06:00 04/09/17 06:00 Intake and Output: 04/09/17 04/09/17 06:59 18:59 Intake Total 120 Output Total 0 Balance 120 - Medications Medications: Current Medications Aspirin (Aspirin Chewable) 81 mg PO DAILY [facility] Last Admin: 04/08/17 09:21 Dose: 81 mg Atorvastatin Calcium (Lipitor) 20 mg PO DIN [facility] Last Admin: 04/08/17 18:17 Dose: 20 mg Furosemide (Lasix) 40 mg PO DAILY [facility] Last Admin: 04/05/17 09:53 Dose: 40 mg Insulin Human Regular (Humulin R Low) 0 units SC ACHS [facility] PRN Reason: Protocol Last Admin: 04/09/17 08:05 Dose: Not Given Metoprolol Tartrate (Lopressor) 100 mg PO BID [facility] Last Admin: 04/08/17 22:55 Dose: 100 mg Polyethylene Glycol (Miralax) 17 gm PO BID [facility] Last Admin: 04/08/17 18:17 Dose: 17 gm Spironolactone (Aldactone) 25 mg PO BID [facility] Last Admin: 04/05/17 17:26 Dose: 25 mg Warfarin Sodium (Coumadin) 3 mg PO 1800 [facility] PRN Reason: Protocol Last Admin: 04/08/17 18:17 Dose: 3 mg - Labs Labs: 04/03/17 06:30 04/08/17 04:24 PT 13.9 Seconds (9.9-11.8) H 04/09/17 06:30 INR 1.29 (0.93-1.08) H 04/09/17 06:30 APTT 37.3 Seconds (23.7-30.8) H 03/31/17 11:03 - Constitutional Appears: Well - Head Exam Head Exam: ATRAUMATIC, NORMAL INSPECTION, NORMOCEPHALIC - Eye Exam Eye Exam: EOMI, Normal appearance, PERRL Pupil Exam: NORMAL ACCOMODATION, PERRL - ENT Exam ENT Exam: Mucous Membranes Moist, Normal Exam - Neck Exam Neck Exam: Full ROM, Normal Inspection. absent: Lymphadenopathy - Respiratory Exam Respiratory Exam: Clear to Ausculation Bilateral, NORMAL BREATHING PATTERN - Cardiovascular Exam Cardiovascular Exam: REGULAR RHYTHM, +S1, +S2. absent: Murmur - GI/Abdominal Exam GI & Abdominal Exam: Soft, Normal Bowel Sounds. absent: Tenderness - Rectal Exam Rectal Exam: NORMAL INSPECTION - Exam Exam: Circumcision, NORMAL INSPECTION External exam: NORMAL EXTERNAL EXAM Speculum exam: NORMAL SPECULUM EXAM Bimanual exam: NORMAL BIMANUAL EXAM - Extremities Exam Extremities Exam: Full ROM, Normal Capillary Refill, Normal Inspection. absent : Joint Swelling, Pedal Edema - Back Exam Back Exam: NORMAL INSPECTION - Neurological Exam Neurological Exam: Alert, Awake, CN II-XII Intact, Normal Gait, Oriented x3 - Psychiatric Exam Psychiatric exam: Normal Affect, Normal Mood - Skin Skin Exam: Dry, Intact, Normal Color, Warm Assessment and Plan (1) Congestive heart failure Status: Acute (2) Hyponatremia Status: Acute (3) Pleural effusion Status: Acute (4) Pneumonia Status: Acute (5) Fall Status: Acute (6) Hyperglycemia Status: Acute (7) Rapid atrial fibrillation Status: Acute (8) Sepsis Status: Acute (9) Sepsis Status: Acute - Assessment and Plan (Free Text) Plan: OFF OF ABX RISK FOR DEVELOPING INFECTIONS
[2017-04-09] MEDS: POLYETHYLENE GLYCOL 3350 17 GM/Dose PACKET PO SCH ×2 (10:37→17:42)
[2017-04-09 18:36] VITALS: BP 87/54; RESP 16; TEMP 98
[2017-04-09 19:43] VITALS: PULSE 103
--- NOTE | 2017-04-09 21:48 | CP.PCM.DIS ---
Provider - Provider Date of Admission: 03/31/17 11:49 Attending physician: Ben James MD Primary care physician: Asim Cisneros MD Time Spent in preparation of Discharge (in minutes): 15 Hospital Course - Lab Results Lab Results: Micro Results 04/05/17 20:16 Pleural Fluid Gram Stain - Final 04/05/17 20:16 Pleural Fluid Anaerobic Culture - Final NO ANAEROBES ISOLATED. 04/05/17 20:16 Pleural Fluid Body Fluid Culture - Preliminary NO GROWTH AFTER 3 DAYS 04/05/17 20:16 Pleural Fluid Fungal Culture - Preliminary 04/05/17 20:16 Other: Please Indicate Mycobacterial Culture - Preliminary 04/02/17 04:23 Urine Urine Culture - Final No Growth (<1,000 CFU/ML) 03/31/17 13:00 Urine,Clean Catch Urine Culture - Final 50-100,000 CFU/ML. MULTIPLE SPECIES. SUGGEST REPEAT SPECIMEM. Most Recent Lab Values WBC 10.4 10^3/ul (4.5-11.0) 04/03/17 06:30 RBC 4.07 10^6/uL (3.5-6.1) 04/03/17 06:30 Hgb 11.7 gm/dL (12.0-16.0) L 04/03/17 06:30 Hct 36.0 % (36.0-48.0) 04/03/17 06:30 MCV 88.5 fL (80.0-105.0) 04/03/17 06:30 MCH 28.7 pg (25.0-35.0) 04/03/17 06:30 MCHC 32.5 g/dl (31.0-37.0) 04/03/17 06:30 RDW 14.9 % (11.5-14.5) H 04/03/17 06:30 Plt Count 205 10^3/uL (120.0-450.0) 04/03/17 06:30 MPV 8.8 fl (7.0-11.0) 04/03/17 06:30 Gran % 86.4 % (50.0-68.0) H 04/03/17 06:30 Lymph % (Auto) 5.5 % (22.0-35.0) L 04/03/17 06:30 [place] % (Auto) 6.3 % (1.0-6.0) H 04/03/17 06:30 Eos % (Auto) 1.3 % (1.5-5.0) L 04/03/17 06:30 Baso % (Auto) 0.5 % (0.0-3.0) 04/03/17 06:30 Gran # 9.02 (1.4-6.5) H 04/03/17 06:30 Lymph # 0.6 (1.2-3.4) L 04/03/17 06:30 [place] # 0.7 (0.1-0.6) H 04/03/17 06:30 Eos # 0.1 (0.0-0.7) 04/03/17 06:30 Baso # 0.05 K/mm3 (0.0-2.0) 04/03/17 06:30 PT 13.9 Seconds (9.9-11.8) H 04/09/17 06:30 INR 1.29 (0.93-1.08) H 04/09/17 06:30 APTT 37.3 Seconds (23.7-30.8) H 03/31/17 11:03 Sodium 133 mmol/L (132-148) 04/08/17 04:24 Potassium 4.7 mmol/L (3.6-5.0) 04/08/17 04:24 Chloride 96 mmol/L (98-107) L 04/08/17 04:24 Carbon Dioxide 34 mmol/L (21-33) H 04/08/17 04:24 Anion Gap 8 (10-20) L 04/08/17 04:24 BUN 20 mg/dL (7-21) 04/08/17 04:24 Creatinine 0.9 mg/dL (0.5-1.4) 04/08/17 04:24 Est GFR ( Amer) > 60 04/08/17 04:24 Est GFR (Non-Af Amer) > 60 04/08/17 04:24 POC Glucose (mg/dL) 260 mg/dL (65-110) H 04/08/17 16:14 Random Glucose 163 mg/dL (70-110) H 04/08/17 04:24 Calcium 8.2 mg/dL (8.4-10.5) L 04/08/17 04:24 Phosphorus 2.7 mg/dL (2.5-4.5) 04/08/17 04:24 Magnesium 2.0 mg/dL (1.7-2.2) 04/08/17 04:24 Iron 36 ug/dL (45-180) L 04/03/17 06:30 TIBC 225 ug/dL (265-497) L 04/03/17 06:30 % Saturation 16 % (20-55) L 04/03/17 06:30 Ferritin 157.0 ng/mL 04/03/17 06:30 Total Bilirubin 1.3 mg/dL (0.2-1.3) 04/02/17 06:15 AST 18 U/L (15-39) 04/02/17 06:15 ALT 19 U/L (7-56) 04/02/17 06:15 Alkaline Phosphatase 110 U/L (38-133) 04/02/17 06:15 Lactate Dehydrogenase 601 U/L (333-699) 03/31/17 11:03 Total Creatine Kinase 20 U/L (35-230) L 03/31/17 11:03 Troponin I 0.02 ng/mL D 04/08/17 04:24 NT-Pro-B Natriuret Pep 03255 pg/mL (0-450) H 04/01/17 12:00 Total Protein 5.2 g/dL (5.8-8.3) L 04/02/17 06:15 Albumin 2.3 g/dL (3.0-4.8) L 04/02/17 06:15 Globulin 2.9 gm/dL 04/02/17 06:15 Albumin/Globulin Ratio 0.8 (1.1-1.8) L 04/02/17 06:15 Vitamin B12 337 pg/mL (239-931) 04/03/17 06:30 Procalcitonin 0.22 NG/ML (0.19-0.49) 04/02/17 08:00 Free T4 1.16 ng/dL (0.78-2.19) 04/01/17 08:30 TSH 3rd Generation 3.84 mIU/mL (0.46-4.68) 04/01/17 08:30 Urine Color Straw (YELLOW) 03/31/17 12:35 Urine Appearance Clear (CLEAR) 03/31/17 12:35 Urine pH 6.5 (4.7-8.0) 03/31/17 12:35 Ur Specific [place] <= 1.005 (1.005-1.035) 03/31/17 12:35 Urine Protein Negative mg/dL (<30 mg/dL) 03/31/17 12:35 Urine Glucose (UA) 250 mg/dL (NEGATIVE) H 03/31/17 12:35 Urine Ketones Negative mg/dL (NEGATIVE) 03/31/17 12:35 Urine Blood Trace-intact (NEGATIVE) H 03/31/17 12:35 Urine Nitrate Negative (NEGATIVE) 03/31/17 12:35 Urine Bilirubin Negative (NEGATIVE) 03/31/17 12:35 Urine Urobilinogen 0.2 E.U./dL (<1 E.U./dL) 03/31/17 12:35 Ur Leukocyte Esterase [place]/uL (NEGATIVE) H 03/31/17 12:35 Urine RBC 0 - 2 /hpf (0-2) 03/31/17 12:35 Urine WBC 5 - 10 /hpf (0-6) 03/31/17 12:35 Ur Epithelial Cells 0 - 2 /hpf (0-5) 03/31/17 12:35 Urine Bacteria Few (NEG) 03/31/17 12:35 Urine Other Uyeast 03/31/17 12:35 Fluid Source Pleural 04/05/17 20:16 Fluid Appearance Turbid (CLEAR) 04/05/17 20:16 Fluid WBC 94161.0 /uL (0.0-300.0) H 04/05/17 20:16 Fluid RBC 76340.0 /uL (0.0-0.0) H 04/05/17 20:16 Fluid Tot Cell Count 100 (0-0) H 04/05/17 20:16 Fluid Neutrophils 84.0 % (0-0) H 04/05/17 20:16 Fluid Lymphocytes 16.0 % (0-0) H 04/05/17 20:16 Fld Monocyte/Macrophag 0 % (0-0) 04/05/17 20:16 Fluid Comment TEST NOT PERFORMED 04/05/17 20:16 Pleural pH 7.0 04/05/17 20:16 Pleural Total Protein 3.2 g/dL 06/26/17 20:16 Pleural LDH 9245 U/L 04/05/17 20:16 Pleural Glucose <10 mg/dL L 04/05/17 20:16 - Hospital Course Hospital Course: Pt had L pleural effusion and had thoracentesis. She had A fib with rapid rate. She will f/u with Dr Cisneros for repeat CXR. I did speak with Dr Cisneros. Discharge Exam - Head Exam Head Exam: ATRAUMATIC, NORMAL INSPECTION, NORMOCEPHALIC - Eye Exam Eye Exam: EOMI, Normal appearance, PERRL Pupil Exam: NORMAL ACCOMODATION, PERRL - Cardiovascular Exam Cardiovascular Exam: REGULAR RHYTHM, RRR, +S1, +S2. absent: JVD - GI/Abdominal Exam GI & Abdominal Exam: Normal Bowel Sounds. absent: Hypoactive Bowel Sounds, Organomegaly - Extremities Exam Extremities exam: normal inspection - Back Exam Back exam: NORMAL INSPECTION - Neurological Exam Neurological exam: Alert, CN II-XII Intact, Normal Gait Discharge Plan - Follow Up Plan Condition: FAIR Disposition: TRANSF TO SNF Instructions: Heart Failure (ED), Diabetes Mellitus Type 2 in Adults (DC), Pleural Effusion (DC) Additional Instructions: A fib with rapid rate L Peural Effusion Delerium improved Pulm HTN CAD Plan: On Metoprolol. On Coumadin. Follow INR. Coumadin can be reversed. Eating well. Pain is controlled. Meds reviewed. Referrals: Asim Cisneros MD [Primary Care Provider] -
--- NOTE | 2017-04-12 20:17 | CP.PCM.PN ---
Subjective - Date & Time of Evaluation Date of Evaluation: 04/06/17 Time of Evaluation: 09:05 - Subjective Subjective: Pt with no CP/SOB/N/V.Eating ok. Objective - Vital Signs/Intake and Output Vital Signs (last 24 hours): Temp Pulse Resp BP Pulse Ox 98 F 103 H 16 87/54 L 99 04/09/17 18:00 04/09/17 18:00 04/09/17 18:00 04/09/17 18:00 04/09/17 06:00 - Labs Labs: 04/03/17 06:30 04/08/17 04:24 PT 13.9 Seconds (9.9-11.8) H 04/09/17 06:30 INR 1.29 (0.93-1.08) H 04/09/17 06:30 APTT 37.3 Seconds (23.7-30.8) H 03/31/17 11:03 - Constitutional Appears: Well - Eye Exam Eye Exam: EOMI, Normal appearance, PERRL - ENT Exam ENT Exam: Mucous Membranes Moist, Normal Exam - Neck Exam Neck Exam: Full ROM, Normal Inspection. absent: Lymphadenopathy - Respiratory Exam Respiratory Exam: Clear to Ausculation Bilateral, NORMAL BREATHING PATTERN. absent: Rhonchi, Wheezes - Cardiovascular Exam Cardiovascular Exam: REGULAR RHYTHM, +S1, +S2. absent: Murmur - Skin Skin Exam: Dry, Intact, Normal Color, Warm Assessment and Plan - Assessment and Plan (Free Text) Assessment: 1. Left-sided pleural effusion with possible loculation. 2. Delirium. 3. Hyponatremia. 4. Atrial fibrillation, on anticoagulation. 5. Pulmonary hypertension. 6. Tricuspid regurgitation. 7. Diabetes type 2. 8. Coronary artery disease. 9. Splenic hematoma . Plan: on Aldactone. She is on Lasix daily. She is on metoprolol. The patient is on meropenem for antibiotics. Blood cultures and urine cultures are negative. The patient is going to paced on coumadin.Son understands the risks and benefits.
--- NOTE | 2017-05-12 14:22 | PN ---
SUBJECTIVE: The patient appears comfortable this morning. She is not short of breath at rest. OBJECTIVE: VITAL SIGNS: Temperature is 97.3, pulse 104, respirations 18/20, blood pressure 101/56. Oxygen saturation on nasal cannula is 97%. HEENT: Normocephalic, atraumatic. No JVD. CARDIOVASCULAR: Systolic ejection murmur at the lower left sternal border. Questionable S3 gallop. LUNGS: Improved breath sounds -- left base. Minimal crackles at both bases remain. No rhonchi. No wheezing. EXTREMITIES: Mild edema. No cyanosis, no clubbing. Calves are nontender to palpation. GASTROINTESTINAL: Abdomen is soft, nontender, nondistended. Bowel sounds are positive. SKIN: No acute rash. NEUROLOGIC: Limited at the present time. IMPRESSION: 1. Recurrent congestive heart failure. 2. Chronic atrial fibrillation. 3. Chronic loculated left pleural effusion. 4. Coronary artery disease. 5. Valvular heart disease. 6. Rule out splenic hematoma. PLAN: The patient appears very comfortable this morning. She is not short of breath at rest. She states she is feeling much better overall. On physical exam, no bronchospasm is noted. In addition, the oxygen saturation on nasal cannula is now 97-100%. I did discuss the patient with the night nurse at length. The patient did undergo a thoracentesis by Dr. Nick Colindres yesterday. Pleural fluid results/cytology are pending. The patient also had an abdominal MRI yesterday. As per Dr. 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 Input by GI (Dr. Ortega) is noted. I would continue with the treatment for congestive heart failure and chronic arrhythmias as per cardiology. Input by Dr. Kong is noted. Again, we are awaiting multiple tests on the pleural fluid. The patient remains on antibiotic therapy as per infectious disease. There are no temperatures noted. The leukocytosis has completely resolved. Clinical status of the patient is significantly improved compared to the initial presentation. I will discuss the above with Dr. James. Dev Deal MD [facility]
== END 2017-04-09 20:36 | DRG 186 ==
LOC: ED 10:15 → ERH 11:49 → 2RNO 19:30
PROVIDERS: ADMIT Internal Medicine Nephrology; ATTEND Internal Medicine Nephrology
PROC: 0W9B3ZZ Drainage of Left Pleural Cavity, Percutaneous Approach (ICD-10-PCS; principal; 2017-04-05)
DX: J90 Pleural effusion, not elsewhere classified (principal); A41.9 Sepsis, unspecified organism; J18.9 Pneumonia, unspecified organism; I50.9 Heart failure, unspecified; I11.0 Hypertensive heart disease with heart failure; E11.65 Type 2 diabetes mellitus with hyperglycemia; I27.2 Other secondary pulmonary hypertension; I48.2 Chronic atrial fibrillation; E87.1 Hypo-osmolality and hyponatremia; Z79.01 Long term (current) use of anticoagulants; R26.2 Difficulty in walking, not elsewhere classified; I25.10 Atherosclerotic heart disease of native coronary artery without angina pectoris; I08.1 Rheumatic disorders of both mitral and tricuspid valves; E78.5 Hyperlipidemia, unspecified; R19.02 Left upper quadrant abdominal swelling, mass and lump; R41.0 Disorientation, unspecified; K80.80 Other cholelithiasis without obstruction; D50.9 Iron deficiency anemia, unspecified; D73.89 Other diseases of spleen; Y95 Nosocomial condition; I25.2 Old myocardial infarction; Z95.5 Presence of coronary angioplasty implant and graft